=== PATIENT | female | born 1945 | race Caucasian/White ===

== ENCOUNTER 2023-10-09 11:46 | Emergency (ER) | payer MEDICARE, OTHER, SELFPAY ==
[2023-10-09 11:50] VITALS: BP 176/101
[2023-10-09 12:16] VITALS: BMI 19.8
[2023-10-09] MEDS: DUONEB 3 ML INH ×3 (12:25→15:44)
[2023-10-09] MEDS: DECADRON 10 MG PO (12:26)
[2023-10-09 13:00] VITALS: BP 167/94
[2023-10-09 14:00] VITALS: BP 149/86
--- NOTE | 2023-10-09 14:03 | ED.GENMED ---
History of Present Illness
General
Chief Complaint: Breathing Problem
Source: patient and family
Exam Limitations: none
Time Seen by Provider: 10/09/23 12:03
Nursing documentation reviewed up to this point in time: agreed with
Travel History
Have you had any contact with someone who has COVID-19?: No
Do you have any symptoms of coronavirus? Fever > 100 degrees, chills, cough, shortness of breath, sore throat, loss of taste or smell, muscle aches, or headache?: No
History of Present Illness
History of Present Illness:
77-year-old female with past medical history of deep brain stimulator, Parkinson's, hypertension and asthma presenting to the emergency department today with concerns of a cough initially a few days ago that is now worsened to wheezing and shortness
of breath over the past 2 days or so. Was using her albuterol at home without relief. Denies significant chest pain fevers or additional concerns.
Past History
Past History
ED Past Medical History: Asthma, HTN and Other (Parkinson's)
ED Past Surgical History: Orthopedic and Other (neuro stimulator May 2017)
Social History
Tobacco: Non-smoker
Alcohol: None
Drug: None
Personal:
Living: with family
Employment: Retired
Review of Systems
Review of Systems
Allergies reviewed?: Yes
All Other Systems: ROS reviewed and negative except as documented in HPI and ROS
Phy Exam
Physical Exam
Physical Exam:
GENERAL: Alert , in no apparent distress
EYE: pupils equal and reactive
NECK: Supple, no significant adenopathy.
ENT: o/p clr, mmm.
CARDIAC: Regular rate and rhythm .
LUNGS: Diffuse inspiratory and expiratory wheezing speaking full sentences in no distress
ABDOMEN: Soft, without focal tenderness, no r/g, no cvat
NEUROLOGICAL: Alert and oriented, no focal neuro deficits
SKIN: Warm and dry, skin intact.
MUSCULOSKELETAL: No edema, well perfused.
PSYCH: Normal and appropriate interaction.
Scores
Heart Failure Risk
Heart Failure Risk Score: Not Applicable
Course
Orders/Labs/Results
Orders:
Orders
10/09/23 11:53
EKG [Electrocardiogram (*1)] Urgent
Reason for Study: Shortness of Breath
10/09/23 12:18
Dexamethasone Pf [Decadron] 10 mg PO NOW STA
Ipratropium/Albuterol Sulfate [Duoneb] 3 ml INH R NOW STA
CR Chest - 2 Views Urgent
Comment:
Reason For Exam: cough sob
10/09/23 14:10
Ipratropium/Albuterol Sulfate [Duoneb] 3 ml INH R NOW ONE
Vital Signs
Initial and Last Documented VS:
Initial Vital Signs
Temp Pulse Resp BP Pulse Ox
98.9 F 94 18 176/101 97
10/09/23 11:50 10/09/23 11:50 10/09/23 11:50 10/09/23 11:50 10/09/23 11:50
Last Documented Vital Signs
Temp Pulse Resp BP Pulse Ox
98.9 F 96 29 149/86 91
10/09/23 11:50 10/09/23 14:15 10/09/23 14:15 10/09/23 14:00 10/09/23 14:15
MDM/Problems Addressed
MDM/Problems Addressed:
77-year-old female presenting to the emergency department today with concerns of initial mild upper respiratory symptoms over the past few days now worsening wheezing over the past 36 hours. Upon arrival here vital signs normal patient in no
obvious distress but does have diffuse inspiratory and expiratory wheezing. Was given steroids as well as albuterol treatment. X-ray without signs of pneumonia. Patient with improvement of symptoms after receiving nebulizer treatment as well as
steroid. Patient requesting to go home. Patient did have a third DuoNeb ordered but claims that she felt well would like to be discharged at this point. She was encouraged to return for any worsening symptoms. Pulse ox remaining in the 90s
throughout ER stay. Able to stand up and go to the bathroom without severe shortness of breath.
*Critical Care Note
Total Time (30-74mins, 75-104mins- exclusive of procedures): Not Applicable
ED Attending Note
-
Portions of this chart may have been created with voice recognition software.� Occasional wrong word or��sound alike� substitutions may have occurred due to the inherent limitations of voice recognition software.
Discharge Plan
Departure
Patient Disposition: Home (Routine Discharge)
Date of Disposition: 10/09/23
Time of Disposition: 15:34
Patient with high blood pressure during this ER visit?: No
Condition: Good
Covid-19: Not Applicable
Discharge Problem:
Asthma
Instructions: Asthma, Adult (DC)
Prescriptions:
New
prednisone 20 mg tablet
40 mg PO DAILY 4 Days Qty: 8 0RF
No Action
celecoxib 200 MG capsule
200 mg PO DAILY
melatonin 3 MG tablet
3 mg PO QPM
amantadine HCl 100 MG capsule
100 mg PO BID
calcium carbonate 600 MG tablet
1,200 mg PO DAILY
albuterol sulfate [Ventolin HFA] 90 MCG/PUFF HFA aerosol inhaler
1 puff inhalation PRN PRN (Reason: as needed)
Prolia 60 MG/ML syringe
60 mg SQ .Q TWICE A YEAR
carbidopa-levodopa 25-100 mg Tablet
1 tab PO TID
mupirocin 2 % ointment
1 applic topical BID Qty: 1 0RF
Patient Comments:
started treatment friday09/30/22 and was taking BID. last took at home 10/03/22 in am
lorazepam 1 mg Tablet
1 mg PO HS Qty: 1 0RF
sennosides [senna] 8.6 mg Tablet
17.2 mg PO BID Qty: 2 0RF
acetaminophen 325 mg Tablet
650 mg PO Q4HWA Qty: 2 0RF
aspirin 325 mg Tablet
325 mg PO DAILY Qty: 1 0RF
magnesium hydroxide 400 mg/5 mL Suspension
30 ml PO DAILYPRN PRN (Reason: constipation) Qty: 30 0RF
docusate sodium 100 mg Capsule
100 mg PO BID Qty: 1 0RF
famotidine 20 mg tablet
20 mg PO HS Qty: 30 0RF
dexamethasone 4 mg tablet
4 mg PO BID Qty: 6 0RF
Rx Instructions:
take with food
post-op use only
oxycodone 5 mg tablet
5 - 10 mg PO Q6HPRN PRN (Reason: 1 tab moderate-2 tabs severe pain) Qty: 30 0RF
Rx Instructions:
Dx TKA
ongoing therapy
lisinopril 20 MG tablet
20 mg PO DAILY Qty: 0 0RF
Rx Instructions:
hold systolic blood pressure <130 if taking Oxycodone
verapamil 180 MG tablet extended release
180 mg PO DAILY Qty: 0 0RF
acetaminophen-codeine 300-30 mg Tablet
1 tab PO Q6H PRN (Reason: mild pain) Qty: 0 0RF
Referrals:
Jose De Jesus Ruiz MD [Family Provider] -
Activity Restrictions/Additional Instructions:
You came to the emergency department today for concerns of shortness of breath and wheezing. You are found to have an asthma exacerbation. You had a normal chest x-ray. Please take the prednisone 40 mg once daily for the next 4 days and use the
nebulizer at home as needed. Return to the emergency department for any worsening, new or concerning symptoms.
Interventions
Interventions:
*Risk Screen - Suicide Last Done: 10/09/23 11:50
*General Assessment Last Done: 10/09/23 11:50
*Neglect/Abuse Screening Last Done: 10/09/23 14:20
ED- Fall Risk Assessment Last Done: 10/09/23 12:16
*ED COVID-19 Vaccine History Last Done: 10/09/23 11:50
ED- Cardiac Assessment Last Done: 10/09/23 12:16
ED- Pulmonary Assessment Last Done: 10/09/23 12:16
[2023-10-09 15:00] VITALS: BP 160/79
== END 2023-10-09 15:54 | disposition home or self-care (01) ==
LOC: EMR 11:46
PROVIDERS: EMERGENCY PHYSICIAN Emergency Medicine; FAMILY PHYSICIAN Family Medicine
DX: J45.909 Unspecified asthma, uncomplicated (principal); I10 Essential (primary) hypertension
CPT/HCPCS: 99283; 94640; 71046

== ENCOUNTER 2023-10-11 12:05 | Inpatient (IN) | payer MEDICARE, OTHER, SELFPAY ==
[2023-10-11] VITALS (7 sets, daily range): BP systolic 138–172; BP diastolic 86–107; BMI 20.3; BMI 18.8
[2023-10-11] MEDS: DUONEB 3 ML INH ×3 (09:20→19:59)
[2023-10-11 09:24] LABS: % Basophils 0.4 % (0-2); % Immature Granulocytes 0.4 % (0-0.5); % Lymphocytes 21.8 % (20.5-51.1); % Monocytes 10.4 % (1.7-9.3); Absolute Lymphocytes 1.1 10^3/uL (1.2-3.4); Absolute Monocytes 0.5 10^3/uL (0.1-0.6); Absolute Neutrophils 3.3 10^3/uL (1.4-6.5); Hematocrit 41.3 % (37.0-47.0); Hemoglobin 13.7 g/dL (12.0-16.0); Mean Corp Hgb Conc. 33.2 g/dL (33.0-37.0); Mean Corpuscular Hgb 31.3 pg (27.0-31.0); Mean Corpuscular Volume 94.3 fL (81.0-99.0); Mean Platelet Volume 8.6 fL (7.4-10.4); Nucleated Red Blood Cells % 0 %; Platelet Count 202 10^3/uL (130-400); Red Blood Cell Count 4.38 10^6/uL (4.20-5.40); Red Cell Dist. Width 13.3 % (11.5-14.5); White Blood Cell Count 4.9 10^3/uL (4.8-10.8)
[2023-10-11 09:39] LABS: ALT (SGPT) < 10 U/L (0-35); AST (SGOT) 22 U/L (14-36); Albumin 4.4 g/dl (3.5-5.0); Alkaline Phosphatase 86 U/L (38-126); Blood Urea Nitrogen 30 mg/dl (7-17); Calcium 9.8 mg/dl (8.4-10.2); Carbon Dioxide 27 mmol/L (22-30); Chloride 105 mmol/L (98-107); Estimated Creatinine Clearance 57 ml/min; Glucose 115 mg/dl (70-99); Sodium 138 mmol/L (135-145); Total Bilirubin 0.8 mg/dl (0.2-1.3); Total Protein 7.2 g/dl (6.3-8.2); eGFR > 60.00
--- NOTE | 2023-10-11 09:54 | ED.GENMED ---
History of Present Illness
General
Chief Complaint: Breathing Problem
Source: patient and family
Time Seen by Provider: 10/11/23 09:07
Travel History
Have you had any contact with someone who has COVID-19?: No
Do you have any symptoms of coronavirus? Fever > 100 degrees, chills, cough, shortness of breath, sore throat, loss of taste or smell, muscle aches, or headache?: No
History of Present Illness
History of Present Illness:
77-year-old female who presents with difficulty breathing and wheezing. Patient states she started with symptoms this past week and progressed. She was seen in the emergency department 2 days ago and given steroids and albuterol. She states
despite that, she was short of breath with chest tightness and wheezing again this morning. It somewhat has persisted. She took 2 DuoNeb's at home and was given 1 by EMS. The patient also took 40 mg of prednisone today. No fevers. No
hemoptysis. Patient admits to clear sputum. No leg swelling. No chest pain. Patient denies difficulty with food and denies coughing after eating. The patient has had 2 negative COVID tests
Past History
Past History
ED Past Medical History: Asthma, HTN and Other (Parkinson's)
ED Past Surgical History: Orthopedic and Other (neuro stimulator May 2017)
Social History
Tobacco: Non-smoker
Alcohol: None
Drug: None
Personal:
Living: with family
Employment: Retired
Phy Exam
Physical Exam
Physical Exam:
CONSTITUTIONAL Patient alert and oriented to person, place and time. Well-appearing. Vital signs reviewed.
HEAD atraumatic, normocephalic.
EYES eyelids normal to inspection, Pupils equally round and reactive to light, Extraocular muscles intact, Conjunctiva normal, Sclera normal.
NECK normal range of motion, Trachea midline, no jugular venous distention.
RESPIRATORY CHEST No respiratory distress noted, Chest expansion equal, wheezing bilaterally
CARDIOVASCULAR regular rate and rhythm, Heart sounds normal.
ABDOMEN abdomen nontender, Bowel sounds normal. No distention.
BACK normal inspection, no obvious deformities
UPPER EXTREMITY range of motion normal, Motor strength normal, no cyanosis, no edema.
LOWER EXTREMITY range of motion normal, Motor strength normal, no cyanosis, no edema.
NEURO Speech normal, No focal motor deficits, Raton coma scale 15, Memory normal, Cranial Nerves intact to screening exam.
SKIN skin warm, dry, and normal in color.
Scores
Heart Failure Risk
Heart Failure Risk Score: Not Applicable
Course
Orders/Labs/Results
Orders:
Orders
10/11/23 09:07
Cardiac Monitoring- Treatment ONCE
CR Chest - 2 Views Urgent
Comment:
Reason For Exam: respiratory distress
10/11/23 09:17
Complete Blood Count/With Diff Urgent
Comprehensive Metabolic Panel Urgent
Vitamin B12 Routine
10/11/23 09:19
Ipratropium/Albuterol Sulfate [Duoneb] 3 ml .ROUTE .STK-MED ONE
Ipratropium/Albuterol Sulfate [Duoneb] 3 ml INH R NOW STA
10/11/23 Lunch
Regular
At Your Request: Full Participation
Does patient need a safe tray?: No
10/11/23 10:22
Lorazepam [Ativan] 1 mg PO NOW STA
10/11/23 11:12
Admit/Transfer Patient As Directed
Co-Sign Provider:
Level of Care: Inpatient admission
Assign to:: Medical/Surgical
Physician / Group: hosp
Diagnosis: COPD exacerbation/bronchitis
Reason for Hospitalization: Hypoxic respiratory failure
Expected length of stay greater than two midnights?: Yes
ELOS- Estimated Length of Stay in days: 2
I certify the patient meets the requirements for IP care: Yes
10/11/23 11:14
Code Status As Directed
Resuscitation Status: Do not resuscitate
Reached after discussion with pt or family/Healthcare POA: Yes
10/11/23 11:15
DNR Bracelet Application ONCE
10/11/23 12:00
Doxycycline [Vibramycin] 100 mg PO DAILY
10/11/23 13:29
0.9% Sodium Chloride 1000 ml [Nss] 1,000 ml IV 60 mls/hr
Albuterol [ProAIR HFA INHALER] 1 puff INH R PRN PRN PRN
Ipratropium/Albuterol Sulfate [Duoneb] 3 ml INH R QID
10/11/23 13:29
Activity As Directed
Activity Level: With Assistance
Venous Foot Pumps As Directed
Location: Bilateral feet
Vital Signs As Directed
Frequency: Per unit guidelines
O2 Therapy [RESP] Routine
Nasal Cannula Liter Flow: 2 LPM
Titrate/Wean O2 to maintain O2 sat greater than (%): 93
Pulse Ox/spot Check [RESP] Routine
Quantity: 1
DX Deep Vein Thrombosis Video Routine
10/11/23 14:00
Dexamethasone Sod Phosphate [Decadron] 4 mg IV Q12
10/11/23 14:28
Influenza A+B Rapid Molecular Urgent
EVELYN Source: Nasal Swab
Specimen Description:
10/11/23 16:00
Carbidopa/Levodopa [Sinemet 25-100] 1 tablet PO TID
10/11/23 17:29
Respiratory Culture/Gram Stain Routine
EVELYN Source: Sputum
Specimen Description:
Date Specimen was Collected: 10/11/23
Time Specimen was Collected: 16:36
10/11/23 18:00
Enoxaparin Sodium [Lovenox] 40 mg SC QPM
10/11/23 20:00
Amantadine [Symmetrel] 100 mg PO BID
10/11/23 22:00
Lorazepam [Ativan] 1 mg PO HS
10/12/23 06:00
Basic Metabolic Panel IN AM
Complete Blood Count/No Diff IN AM
10/12/23 08:00
Lisinopril [Zestril] 20 mg PO DAILY
Abnormal Lab Results
10/11/23
09:17
MCH 31.3 H pg
(27.0-31.0)
Absolute Lymphs (auto) 1.1 L 10^3/uL
(1.2-3.4)
Monocytes % 10.4 H %
(1.7-9.3)
BUN 30 H mg/dl
(7-17)
Glucose 115 H mg/dl
(70-99)
10/11/23 09:17
10/11/23 09:17
Vital Signs
Initial and Last Documented VS:
Initial Vital Signs
Temp Pulse Resp BP Pulse Ox
98.5 F 93 19 167/106 93
10/11/23 09:05 10/11/23 09:05 10/11/23 09:05 10/11/23 09:05 10/11/23 09:05
Last Documented Vital Signs
Temp Pulse Resp BP Pulse Ox
97.8 F 96 18 156/86 95
10/11/23 23:49 10/11/23 23:49 10/11/23 23:49 10/11/23 23:49 10/11/23 23:49
MDM/Problems Addressed
MDM/Problems Addressed:
Reactive airway disease, hypoxia, bronchitis
*Radiology
Radiology exam reviewed: all reviewed NAD by ED Provider
*Pulse Oximetry
Patient hypoxic: yes
*Toys Inspector Interpretation
Rate: normal
Interpretation: normal
Rhythm: sinus
*Critical Care Note
Total Time (30-74mins, 75-104mins- exclusive of procedures): Not Applicable
Data Reviewed
Review of Other/Old Records Reveals: Labs (Labs reviewed from 222)
Source: patient
Prescriptions/Medications Considered But Not Given:
Consider antibiotics but white count normal, no fever, no green or yellow sputum
Patient Management
Discussion with other providers: Hospitalist
Escalation/DeEscalation of care consider admission/obs:
Revisit in a 77-year-old female with hypoxia and persistent wheezing. Despite steroids and bronchodilators, her symptoms persist. Given her findings we will plan for admission and continued management. Hold off antibiotics for now
ED Attending Note
-
Portions of this chart may have been created with voice recognition software.� Occasional wrong word or��sound alike� substitutions may have occurred due to the inherent limitations of voice recognition software.
Discharge Plan
Departure
Patient Disposition: Admit
Date of Disposition: 10/11/23
Time of Disposition: 09:59
Admit to: Med/Surg
Presentation/result/management discussed w/ accepting MD/DO: Hospitalist
Discharge Problem:
RAD (reactive airway disease), Hypoxia, Acute bronchitis
Interventions
Interventions:
*Risk Screen - Suicide Last Done: 10/11/23 08:59
*General Assessment Last Done: 10/11/23 08:59
*Neglect/Abuse Screening Last Done: 10/11/23 08:59
ED- Fall Risk Assessment Last Done: 10/11/23 08:59
*ED COVID-19 Vaccine History Last Done: 10/11/23 08:59
*Nursing Disposition Last Done: 10/11/23 13:01
ED- Cardiac Assessment Last Done: 10/11/23 08:59
ED- Pulmonary Assessment Last Done: 10/11/23 08:59
Discharge Date and Time
Discharge Date/Time: 10/11/23 13:01
[2023-10-11] MEDS: ATIVAN 1 MG PO ×2 (10:24→21:52)
--- NOTE | 2023-10-11 11:22 | HPS.HSE ---
Family Physician
-
Family Physician: Jose De Jesus Ruiz
Chief Complaint
-
Continued respiratory congestion after being seen 2 days ago and ED
History of Present Illness
77-year-old female who presents with difficulty breathing and wheezing.� Patient states she started with symptoms this past week and progressed.� She was seen in the emergency department 2 days ago and given steroids and albuterol.� She states
despite that, she was short of breath with chest tightness and wheezing again this morning.� It somewhat has persisted.� She took 2 DuoNeb's at home and was given 1 by EMS.�
The patient also took 40 mg of prednisone today.�
No fevers.� No hemoptysis.� Patient admits to clear sputum. Although in the emergency room she did cough with tenacious and thick yellowish return.� No leg swelling.� No chest pain.� Patient denies difficulty with food and denies coughing after
eating.� The patient has had 2 negative COVID tests she has received the flu vaccine but was not tested for influenza.
Medical History
Past Medical History
Past Medical History: Reports Asthma (She admitted to a history of asthma since she was a child she has albuterol nebs that she uses when she has outbreaks which are infrequent no more than 1-2 a year.) and HTN
Additional Past Medical History:
Parkinson's and follows with Dr. España at [facility]/no recent changes in her Sinemet
Past Surgical History: Reports None and Orthopedic
Additional Past Surgical History:
Brain stimulator
Social History
Tobacco: Non-smoker
Alcohol: None
Drug: None
Personal:
Living: With Family
Employment: Retired
Family History
Family History: Not pertinent
Allergies / Home Medications
Allergies reflects when Allergies were last updated in [email or web address].
Home Medications with original date entered in [email or web address]
Allergy/Medication List:
Allergies
Allergy/AdvReac Type Severity Reaction Status Date / Time
Cephalosporins Allergy Patient Verified 10/09/23 11:52
unaware of
this
allergy
hydromorphone [From Dilaudid] Allergy hallucinate Verified 10/09/23 11:52
s
penicillin G Allergy SEE BELOW Verified 10/09/23 11:52
Penicillins Allergy SEE BELOW Verified 10/09/23 11:52
Home Medications
albuterol sulfate 90 mcg/actuation aerosol inhaler (Ventolin HFA) 1 puff inhalation PRN PRN as needed 12/10/17
amantadine HCl 100 mg capsule 100 mg PO BID 12/10/17
carbidopa 25 mg-levodopa 100 mg tablet 1 tab PO TID 09/06/22
lisinopril 20 mg tablet 20 mg PO DAILY #0 tabs 10/03/22
lorazepam 1 mg tablet 1 mg PO HS #1 tab 10/03/22
prednisone 20 mg tablet 40 mg PO DAILY 4 days #8 tabs 10/09/23
Review of Systems
-
History Source: Patient and Family
Constitutional: Reports Fatigue and Sleep Disturbance; Denies Fever
EENT: Reports No Symptoms
Respiratory: Reports Cough and Other (Some production)
Cardiac: Reports No Symptoms
Abdomen/GI: Reports No Symptoms
: Reports See HPI
Musculoskeletal: Reports No Symptoms
Neurological: Reports Other (Tremor uses walker for ambulation/otherwise I am able to walk')
Physical Exam
Vital Signs
Vital Signs
Temp Pulse Resp BP Pulse Ox
98.5 F 102 16 167/92 95
10/11/23 09:05 10/11/23 10:00 10/11/23 10:00 10/11/23 10:00 10/11/23 10:00
Physical Exam
General: Appears Chronically Ill
HEENT: NormoCephalic and Oxygen (On 2 L/pulse ox 95%)
Respiratory: Wheezes and Rhonchi
Cardiac: S1/S2 and Regular Rhythm
GI: Soft
Musculoskeletal: No Clubbing
Skin: Warm
Neuro: Awake, Alert, Oriented, AO x 3 and Tremors
Psych: Calm
Laboratory Results
-
10/11/23 09:17
10/11/23 09:17
Laboratory Results
Total Bilirubin 0.8 mg/dl (0.2-1.3) 10/11/23 09:17
AST 22 U/L (14-36) 10/11/23 09:17
ALT < 10 U/L (0-35) 10/11/23 09:17
Alkaline Phosphatase 86 U/L (38-126) 10/11/23 09:17
Data Reviewed
-
Critical Care Time (in minutes): 56
Diagnostic Radiology: Report Reviewed by me (Showed no evidence of cardiopulmonary disease mild cardiomegaly, moderate to severe kyphosis appearing endplate fracture of T10 with moderate vertebral body loss) and Discussed with Physician
Lab Data: Labs Reviewed by me (No significant leukocytosis some macrocytic cytosis noted chemistries within normal limits/BUN elevated at 30)
Impression/Plan
-
IMPRESSION:
77-year-old female who presents with difficulty breathing and wheezing.� Patient states she started with symptoms this past week and progressed.� She was seen in the emergency department 2 days ago and given steroids and albuterol.� She states
despite that, she was short of breath with chest tightness and wheezing again this morning.� It somewhat has persisted.� She took 2 DuoNeb's at home and was given 1 by EMS.�
The patient also took 40 mg of prednisone today.�
No fevers.� No hemoptysis.� Patient admits to clear sputum. Although in the emergency room she did cough with tenacious and thick yellowish return.� No leg swelling.� No chest pain.� Patient denies difficulty with food and denies coughing after
eating.� The patient has had 2 negative COVID tests she has received the flu vaccine but was not tested for influenza.
COPD exacerbation//acute bronchitis/asthmatic bronchitis?
-Prior history of asthma/no eosinophilia
-Failed outpatient attempts at prednisone taper and nebs
-Chest x-ray reviewed no evidence of any inflammatory infiltrate
-Will place on IV steroids and lieu of prior oral prednisone dosing which will be held for now
-Add doxycycline daily
-Has checked COVID-19 on 2 separate occasions last week both negative
-Will check for influenza A and B
-Scheduled DuoNeb treatments/as needed albuterol
-Titrate oxygen to need may need home oxygen eval
Parkinson's disease
-Continue present dosing of Sinemet
-Amantadine
-Brain stimulator
Essential hypertension
-Continue lisinopril
Anxiety disorder
-Continue nightly lorazepam
DVT prophylaxis with Lovenox and venous pumps
DNR/DNI/substantiated by son at bedside and agreed upon by patient with prior advanced directive
[2023-10-11] MEDS: VIBRAMYCIN 100 MG PO (13:33)
[2023-10-11] MEDS: NSS 1000 IV (13:37)
[2023-10-11] MEDS: DECADRON 4 MG IV ×2 (13:51→21:52)
[2023-10-11 15:45] LABS: Vitamin B12 592 pg/ml (239-931)
[2023-10-11] MEDS: DUONEB INH (15:49)
[2023-10-11] MEDS: SINEMET 25-100 1 TABLET PO ×2 (16:24→21:52)
[2023-10-11] MEDS: CALAN EXTENDED RELEASE 180 MG PO (16:24)
[2023-10-11] MEDS: LOVENOX 40 MG SC (17:23)
[2023-10-11] MEDS: SYMMETREL 100 MG PO (19:47)
[2023-10-11] MEDS: TYLENOL #3 1 TABLET PO (21:57)
[2023-10-12] MEDS: NSS 1000 IV (05:18)
[2023-10-12] MEDS: DUONEB 3 ML INH ×4 (06:06→19:26)
[2023-10-12 07:33] VITALS: BP 151/82
[2023-10-12 07:34] LABS: Hematocrit 40.2 % (37.0-47.0); Hemoglobin 13.3 g/dL (12.0-16.0); Mean Corp Hgb Conc. 33.1 g/dL (33.0-37.0); Mean Corpuscular Hgb 31.5 pg (27.0-31.0); Mean Corpuscular Volume 95.3 fL (81.0-99.0); Mean Platelet Volume 8.7 fL (7.4-10.4); Platelet Count 184 10^3/uL (130-400); Red Blood Cell Count 4.22 10^6/uL (4.20-5.40); Red Cell Dist. Width 13.3 % (11.5-14.5); White Blood Cell Count 5.2 10^3/uL (4.8-10.8)
[2023-10-12] MEDS: CALAN EXTENDED RELEASE 180 MG PO (08:04)
[2023-10-12] MEDS: ZESTRIL 20 MG PO (08:04)
[2023-10-12] MEDS: SYMMETREL 100 MG PO ×2 (08:04→20:07)
[2023-10-12] MEDS: TYLENOL #3 1 TABLET PO ×3 (08:04→20:07)
[2023-10-12] MEDS: SINEMET 25-100 1 TABLET PO ×3 (08:04→21:12)
[2023-10-12] MEDS: VIBRAMYCIN 100 MG PO (08:04)
[2023-10-12] MEDS: DECADRON 4 MG IV (08:05)
[2023-10-12 08:06] LABS: Blood Urea Nitrogen 23 mg/dl (7-17); Carbon Dioxide 24 mmol/L (22-30); Chloride 106 mmol/L (98-107); Estimated Creatinine Clearance 53 ml/min; Glucose 124 mg/dl (70-99); Potassium 3.9 mmol/L (3.5-5.1); Sodium 138 mmol/L (135-145); eGFR > 60.00
--- NOTE | 2023-10-12 10:16 | W.PN.HOSP.TC ---
Today's Communication/Plan
-
Will start Decadron taper toward eventually placing on prednisone 40 mg tomorrow hopefully
Will probably need home O2 screen prior to discharge
Obtain PT/OT assessment
Met with family at bedside and updated
Continue doxycycline/Gram stain and culture sputum pending
Assessment / Plan
Assessment / Plan
77-year-old female who presents with difficulty breathing and wheezing.� Patient states she started with symptoms this past week and progressed.� She was seen in the emergency department 2 days ago and given steroids and albuterol.� She states
despite that, she was short of breath with chest tightness and wheezing again this morning.� It somewhat has persisted.� She took 2 DuoNeb's at home and was given 1 by EMS.�
�The patient also took 40 mg of prednisone today.�
�No fevers.� No hemoptysis.� Patient admits to clear sputum.� Although in the emergency room she did cough with tenacious and thick yellowish return.� No leg swelling.� No chest pain.� Patient denies difficulty with food and denies coughing after
eating.� The patient has had 2 negative COVID tests she has received the flu vaccine but was not tested for influenza.
COPD exacerbation//acute bronchitis/asthmatic bronchitis?
-Prior history of asthma/no eosinophilia
-Failed outpatient attempts at prednisone taper and nebs
-Chest x-ray reviewed no evidence of any inflammatory infiltrate
-Will place on IV steroids and lieu of prior oral prednisone dosing which will be held for now
-Add doxycycline daily
-Has checked COVID-19 on 2 separate occasions last week both negative
- check for influenza A and B(negative)
-Scheduled DuoNeb treatments/as needed albuterol
-Titrate oxygen to need may need home oxygen eval
Parkinson's disease
-Continue present dosing of Sinemet
-Amantadine
-Brain stimulator
Essential hypertension
-Continue lisinopril
Anxiety disorder
-Continue nightly lorazepam
DVT prophylaxis with Lovenox and venous pumps
DNR/DNI/substantiated by son at bedside and agreed upon by patient with prior advanced directive
Anticipated Discharge: 24 - 48 hours
Subjective/Interval History
-
Date of Service: October 12, 2023
Tonja is feeling significantly better than yesterday when she came in less cough less congestion presently off oxygen and due to have a walking test asking to go home but met with family and they would prefer the patient undergo PT assessment
which I agree with also need home O2 screen and a steroid taper
Objective Data
-
Labs:
Laboratory Results
10/12/23
06:46
WBC 5.2
Hgb 13.3
Hct 40.2
Plt Count 184
Sodium 138
Potassium 3.9
Chloride 106
Carbon Dioxide 24
BUN 23 H
Creatinine 0.7
Glucose 124 H
Calcium 9.0
Vital Signs:
Vital Signs
Temp Pulse Resp BP Pulse Ox
97.3 F 87 18 151/82 95
10/12/23 07:33 10/12/23 07:33 10/12/23 07:33 10/12/23 07:33 10/12/23 07:33
I&O
10/11/23 10/12/23 10/13/23
06:59 06:59 06:59
Intake Total 780 / 780
Balance 780 / 780
Review of Systems
-
History Source: Patient
Constitutional: Reports Weakness
EENT: Reports No Symptoms Reported
Respiratory: Reports Cough, Trouble Breathing and Wheezing
Cardiac: Reports No Symptoms
Abdomen/GI: Reports No Symptoms
Physical Exam
-
General: Appears Chronically Ill
HEENT: Normocephalic
Respiratory: Wheezes (Scattered on anterior exam only) and Decreased Breath Sounds
Cardiac: Regular Rhythm
GI: Soft and Nontender
Musculoskeletal: No Clubbing
Neuro: Tremors
Psych: Calm
Data Reviewed
-
Total Time Spent with Patient (in minutes): 56
Labs: Labs Reviewed by me (White count 5.2 hemoglobin 13.3/BUN down to 23 from 30/blood sugar 124)
[2023-10-12 11:31] VITALS: BP 154/90
[2023-10-12 13:01] VITALS: BMI 18.8
[2023-10-12 14:34] VITALS: BP 139/79; PULSE 99
--- NOTE | 2023-10-12 14:41 | CM ---
Alert awake oriented patient who lives with Chester who is also inpatient in . They live in home with 0 step to enter and 10 steps to bed room . She is independent in activities of daily living.She has senior helping senior 3x weekly.Offered
VN she requested [facility].
[facility] and [facility] and [facility] hx
Pharmacy [facility]
PCP Dr Ruiz
PLAN Home with VN if accepted
[2023-10-12 15:00] VITALS: BP 139/79
[2023-10-12] MEDS: LOVENOX 40 MG SC (18:23)
[2023-10-12] MEDS: ATIVAN 1 MG PO (21:12)
[2023-10-13 00:46] VITALS: BP 153/89
[2023-10-13] MEDS: MELATONIN 5 MG PO ×2 (01:14→21:01)
[2023-10-13 07:00] VITALS: BP 173/96
[2023-10-13] MEDS: DUONEB 3 ML INH ×4 (07:40→19:19)
[2023-10-13] MEDS: CALAN EXTENDED RELEASE 180 MG PO (08:06)
[2023-10-13] MEDS: SINEMET 25-100 1 TABLET PO ×3 (08:06→22:06)
[2023-10-13] MEDS: DELTASONE 40 MG PO (08:06)
[2023-10-13] MEDS: ZESTRIL 20 MG PO (08:07)
[2023-10-13] MEDS: VIBRAMYCIN 100 MG PO (08:07)
[2023-10-13] MEDS: SYMMETREL 100 MG PO ×2 (08:07→19:35)
[2023-10-13] MEDS: TYLENOL #3 1 TABLET PO ×2 (08:26→19:35)
--- NOTE | 2023-10-13 09:17 | W.PN.HOSP.TC ---
Addendum entered and electronically signed by Tulio Gutierrez MD 10/14/23 17:39:
Acute asthma exacerbation
Original Note:
Today's Communication/Plan
-
Start Lexapro 5 mg daily
Discharge tomorrow
Assessment / Plan
Assessment / Plan
77-year-old female who presents with difficulty breathing and wheezing.� Patient states she started with symptoms this past week and progressed.� She was seen in the emergency department 2 days ago and given steroids and albuterol.� She states
despite that, she was short of breath with chest tightness and wheezing again this morning.� It somewhat has persisted.� She took 2 DuoNeb's at home and was given 1 by EMS.�
�The patient also took 40 mg of prednisone today.�
�No fevers.� No hemoptysis.� Patient admits to clear sputum.� Although in the emergency room she did cough with tenacious and thick yellowish return.� No leg swelling.� No chest pain.� Patient denies difficulty with food and denies coughing after
eating.� The patient has had 2 negative COVID tests she has received the flu vaccine but was not tested for influenza.
COPD exacerbation//acute bronchitis/asthmatic bronchitis?
-Prior history of asthma/no eosinophilia
-Failed outpatient attempts at prednisone taper and nebs
-Chest x-ray reviewed no evidence of any inflammatory infiltrate, COVID-negative, influenza negative
-Status post IV steroids, currently on oral prednisone
-Continue bronchodilators
-Plan for discharge tomorrow
Anxiety
-Patient is agreeable to starting Lexapro 5 mg daily
-Continue Ativan as needed
Parkinson's disease
-Continue present dosing of Sinemet
-Amantadine
-Brain stimulator
Essential hypertension
-Blood pressure elevated at 173/96 on lisinopril 20 mg daily, verapamil 180 mg daily
-Check all blood pressures manually, start hydralazine 25 mg twice daily
DVT prophylaxis with Lovenox and venous pumps
DNR/DNI/substantiated by son at bedside and agreed upon by patient with prior advanced directive
Total time spent to see the patient on the floor, examine the patient, review data and lab results, discuss treatment plan with patient, nursing staff around 51 minutes.
Physical Exam
General: Frail, elderly, no acute distress
HEENT: Normocephalic, Atraumatic, EOMI, MMM
Respiratory: Clear to Auscultation bilaterally
Cardiac: Normal S1/S2, Regular Rate and Rhythm
GI: Soft, Nontender, Nondistended, Normal Bowel Sounds
Extremities: No Clubbing, Cyanosis, or Edema
Neuro: Resting tremor noted
Psych: Appears anxious
Anticipated Discharge: Within 24 hours
Subjective/Interval History
-
Date of Service: October 13, 2023
Patient continues to have dyspnea with activity, it does improve after ambulation. She has a cough, productive of yellow phlegm. No fever.
Objective Data
-
Vital Signs:
Vital Signs
Temp Pulse Resp BP Pulse Ox
97.8 F 89 16 173/96 96
10/13/23 07:00 10/13/23 07:43 10/13/23 07:43 10/13/23 07:00 10/13/23 07:43
I&O
10/12/23 10/13/23 10/14/23
06:59 06:59 06:59
Intake Total 780 / 780 240 / 240
Balance 780 / 780 240 / 240
[2023-10-13 13:48] VITALS: BP 138/78; PULSE 79; O2SAT 92
[2023-10-13] MEDS: LEXAPRO 5 MG PO (15:30)
[2023-10-13] MEDS: LOVENOX 40 MG SC (17:40)
[2023-10-13 22:00] VITALS: BP 122/74
[2023-10-13] MEDS: ATIVAN 1 MG PO (22:06)
[2023-10-14] MEDS: DUONEB 3 ML INH ×2 (07:27→11:31)
[2023-10-14 07:35] VITALS: BP 150/90
[2023-10-14] MEDS: DELTASONE 40 MG PO (07:38)
[2023-10-14] MEDS: SINEMET 25-100 1 TABLET PO (07:38)
[2023-10-14] MEDS: LEXAPRO 5 MG PO (07:38)
[2023-10-14] MEDS: ZESTRIL 20 MG PO (07:38)
[2023-10-14] MEDS: CALAN EXTENDED RELEASE 180 MG PO (07:38)
[2023-10-14] MEDS: SYMMETREL 100 MG PO (07:38)
[2023-10-14] MEDS: VIBRAMYCIN 100 MG PO (07:39)
[2023-10-14 07:41] VITALS: BP 158/80
--- NOTE | 2023-10-14 08:15 | W.PN.HOSP.TC ---
Addendum entered and electronically signed by Tulio Gutierrez MD 10/14/23 17:41:
Patient also has severe protein calorie malnutrition.
Addendum entered and electronically signed by Tulio Gutierrez MD 10/14/23 17:39:
Correction, patient has acute asthma exacerbation.
Original Note:
Today's Communication/Plan
-
Discharge today
Assessment / Plan
Assessment / Plan
77-year-old female who presents with difficulty breathing and wheezing.� Patient states she started with symptoms this past week and progressed.� She was seen in the emergency department 2 days ago and given steroids and albuterol.� She states
despite that, she was short of breath with chest tightness and wheezing again this morning.� It somewhat has persisted.� She took 2 DuoNeb's at home and was given 1 by EMS.�
�The patient also took 40 mg of prednisone today.�
�No fevers.� No hemoptysis.� Patient admits to clear sputum.� Although in the emergency room she did cough with tenacious and thick yellowish return.� No leg swelling.� No chest pain.� Patient denies difficulty with food and denies coughing after
eating.� The patient has had 2 negative COVID tests she has received the flu vaccine but was not tested for influenza.
COPD exacerbation//acute bronchitis/asthmatic bronchitis?
-Prior history of asthma/no eosinophilia
-Failed outpatient attempts at prednisone taper and nebs
-Chest x-ray reviewed no evidence of any inflammatory infiltrate, COVID-negative, influenza negative
-Status post IV steroids, currently on oral prednisone
-Continue bronchodilators
-Medically stable for discharge today
Anxiety
-Patient is agreeable to starting Lexapro 5 mg daily -will provide prescription upon discharge
-Continue Ativan as needed
Parkinson's disease
-Continue present dosing of Sinemet
-Amantadine
-Brain stimulator
Essential hypertension
-Blood pressure elevated at 173/96 on lisinopril 20 mg daily, verapamil 180 mg daily
DVT prophylaxis with Lovenox and venous pumps
DNR/DNI/substantiated by son at bedside and agreed upon by patient with prior advanced directive
Physical Exam
General: Frail, elderly, no acute distress
HEENT: Normocephalic, Atraumatic, EOMI, MMM
Respiratory: Mild scattered expiratory wheezing
Cardiac: Normal S1/S2, Regular Rate and Rhythm
GI: Soft, Nontender, Nondistended, Normal Bowel Sounds
Extremities: No Clubbing, Cyanosis, or Edema
Neuro: Resting tremor noted
Psych: Appears anxious
Anticipated Discharge: Today
Subjective/Interval History
-
Date of Service: October 14, 2023
Breathing continues to improve.
Objective Data
-
Vital Signs:
Vital Signs
Temp Pulse Resp BP Pulse Ox
97.7 F 87 18 158/80 93
10/14/23 07:41 10/14/23 07:41 10/14/23 07:41 10/14/23 07:41 10/14/23 07:41
I&O
10/13/23 10/14/23 10/15/23
06:59 06:59 06:59
Intake Total 240 / 240 720 / 720
Balance 240 / 240 720 / 720
--- NOTE | 2023-10-14 09:07 | PN.CDI ---
CDI
- -
CDI:
Physician Documentation Request
Admit Date: 10/11/23 12:05
Dear Doctor Do,
Please review the following and provide your response in the progress notes.
Clinical Indicators:
- 10/12 Mother Tester note indicates severe protein calorie malnutrition
- Unintentional weight loss >5% in 1 month
- Nutrient intake </= 75% estimated energy needs, >/= 1 month
- 'Pt reports po intake has been poor and decreased over the past 1year'
- 10/11 BMI 18.8
Based on the information, which of the following most accurately represents the patient's nutritional status?
Severe protein calorie malnutrition
Other
[place] Criteria ([facility] Hospitalist 2017)
2 or more criteria must be present for either
non severe or severe malnutrition
Note that the criteria differs related to the
presence of an acute or chronic illness
Acute Illness Chronic Illness
Energy Intake Non Severe: <75% for >7 days Non Severe: <75% for >1 month
Severe: <50% for >5 days Severe: <75% for >1 month
Weight Loss Non Severe: 1-2% over 1 week Non Severe: 5% over 1 month
5% over 1 month 7.5% over 3 months
7.5% over 3 months 10% over 6 months
1 year N/A 20% over 1 year
Severe: >2% over 1 week Severe: >5% over 1 month
>5% over 1 month >7.5% over 3 months
>7.5% over 3 months >10% over 6 months
1 year N/A >20% over 1 year
Body Fat Non Severe: Mild Decrease Non Severe: Mild Loss
Severe: Moderate Decrease Severe: Severe Loss
Muscle Mass Non Severe: Mild Decrease Non Severe: Mild Loss
Severe: Moderate Decrease Severe: Severe Loss
Fluid Accumulation Non Severe: Mild Accumulation Non Severe: Mild Accumulation
Severe: Moderate to severe Severe: Moderate to severe
accumulation accumulation
Reduced Grommet Man Strength Non Severe: N/A Non Severe: N/A
Severe: Measurably reduced Severe: Measurably reduced
Additional criteria that can be used to Determine if Mild or Moderate Malnutrition ([employer] Manual 2018)
Mild Moderate Severe
Albumin gm/dl <3.0 gm/dl <2.5 gm/dl <2.0 gm/dl
Pre Albumin mg/dl <15 gm/dl <10 mg/dl <5.0 mg/dl
BMI <18.5 <17 <16
Use of terms such as suspected, likely, concern for, or probable (associated with a specific diagnosis that is being evaluated, monitored, or treated as if it exists) are acceptable and can be coded in the inpatient setting, when documented at the
time of discharge.
Thank you,
Petrona Paz RN
CDI Specialist
Please use your independent medical judgment in providing your response.
[2023-10-14] MEDS: TYLENOL #3 1 TABLET PO (09:33)
--- NOTE | 2023-10-14 12:36 | W.DCSUMMARY ---
Addendum entered and electronically signed by Tulio Gutierrez MD 10/14/23 17:41:
Patient also has severe protein calorie malnutrition.
Original Note:
Discharge Summary
Discharge Data
Date of Admission: 10/11/23
Date of Discharge: 10/14/23
-
Pending Results: No
Hospital Course
Discharge diagnosis:
Acute asthma exacerbation
Anxiety
Parkinson's disease
Benign essential hypertension
Hospital course:
77-year-old female with a past medical history of Parkinson's disease, asthma, anxiety, and hypertension was admitted for acute asthma exacerbation. Patient was seen in the ER 2 days prior to admission, and prescribed prednisone. Despite this, her
breathing got worse, and she was admitted for IV steroids. Chest x-ray was negative for acute cardiopulmonary disease, she was COVID-negative, influenza negative.
After several days, her breathing improved, and she was transitioned to oral steroids.
Patient does have anxiety, she is on Ativan 1 mg at bedtime. She was started on Lexapro 5 mg daily, a new prescription has been provided. She has been instructed to follow-up with her primary care doctor for titration.
Patient is medically stable for discharge on prednisone and breathing treatments as directed. She has been instructed to follow-up with primary doctor in 1 week.
Disposition: Home with home care
Discharge planning: Required 37 minutes
Discharge Plan
-
Patient Disposition: Home with Home Care
Discharge Diagnosis/Procedures: COPD exacerbation bronchitis
Parkinson's disease with stimulator
Diet: Regular
Activity: With assistance and With Walker
Driving Restrictions: No driving
Referrals:
Jose De Jesus Ruiz MD [Family Provider] - in one week
Prescriptions:
New
doxycycline hyclate 100 mg Capsule
100 mg PO DAILY Qty: 7 0RF
prednisone 20 mg Tablet
40 mg PO DAILY Qty: 4 0RF
Rx Instructions:
Take for 4 days after discharge
escitalopram oxalate 5 mg Tablet
5 mg PO DAILY 30 Days Qty: 30 0RF
ipratropium-albuterol 0.5 mg-3 mg(2.5 mg base)/3 mL solution for nebulization
3 ml inhalation QID PRN (Reason: shortness of breath or wheezing) Qty: 180 0RF
Continued
amantadine HCl 100 MG capsule
100 mg PO BID
albuterol sulfate [Ventolin HFA] 90 MCG/PUFF HFA aerosol inhaler
1 puff inhalation R Q6HPRN PRN (Reason: sob)
carbidopa-levodopa 25-100 mg Tablet
1 tab PO TID
lorazepam 1 mg Tablet
1 mg PO HS Qty: 1 0RF
lisinopril 20 MG tablet
20 mg PO DAILY Qty: 0 0RF
verapamil 180 mg Tablet Extended Release
180 mg PO DAILY
celecoxib 200 mg Capsule
200 mg PO DAILY
acetaminophen-codeine 300-30 mg Tablet
1 tab PO QIDPRN PRN (Reason: severe pain)
calcium carbonate 500 mg calcium (1,250 mg) Tablet
500 mg PO DAILY
vitamin E 268 mg (400 unit) Capsule
268 mg PO DAILY
cholecalciferol (vitamin D3) [Vitamin D3] 25 mcg (1,000 unit) Tablet
25 mcg PO DAILY
Visbiome 112.5 billion cell Capsule
1 cap PO DAILY
Discontinued
prednisone 20 mg tablet
40 mg PO DAILY 4 Days Qty: 8 0RF
Patient Comments:
for 4 days starting 10/09/23
Discharge Orders:
Discharge Patient (As Directed); Ordered 10/14/23
Ordered By: Tulio Gutierrez
Discharge Date and Time
Discharge Date/Time: 10/14/23 15:36
== END 2023-10-14 15:36 | disposition home health service (06) | DRG 190 ==
LOC: 3 WEST ACU 12:05
PROVIDERS: ADMITTING PHYSICIAN Internal Medicine; ATTENDING PHYSICIAN Family Medicine; EMERGENCY PHYSICIAN Emergency Medicine; FAMILY PHYSICIAN Family Medicine
DX: J44.1 Chronic obstructive pulmonary disease with (acute) exacerbation (principal); E43 Unspecified severe protein-calorie malnutrition; J45.901 Unspecified asthma with (acute) exacerbation; Z68.1 Body mass index [BMI] 19.9 or less, adult; F41.9 Anxiety disorder, unspecified; G20.A1 Parkinson's disease without dyskinesia, without mention of fluctuations; I10 Essential (primary) hypertension; J44.0 Chronic obstructive pulmonary disease with (acute) lower respiratory infection; J20.9 Acute bronchitis, unspecified; Z66 Do not resuscitate
CPT/HCPCS: 71046; 80048; 80053; 82607; 85025; 85027; 87070; 87205; 87502; 94640; 97163; 97167; 97530; 99285

== ENCOUNTER → 2024-03-08 08:18 | Outpatient (REF) | payer MEDICARE, OTHER, SELFPAY ==
[2024-03-08 09:23] LABS: ALT (SGPT) < 10 U/L (0-35); AST (SGOT) 20 U/L (14-36); Albumin 4.7 g/dl (3.5-5.0); Alkaline Phosphatase 92 U/L (38-126); Blood Urea Nitrogen 25 mg/dl (7-17); Calcium 10.1 mg/dl (8.4-10.2); Carbon Dioxide 26 mmol/L (22-30); Chloride 104 mmol/L (98-107); Glucose 97 mg/dl (70-99); Sodium 141 mmol/L (135-145); Total Bilirubin 0.7 mg/dl (0.2-1.3); Total Protein 7.1 g/dl (6.3-8.2); eGFR 56.95
[2024-03-08 10:38] LABS: Vitamin D, 25-OH*** 44.5 ng/mL (30-80)
[2024-03-11 00:21] LABS: Albumin 4.35 g/dL (3.75-5.01); Alpha 1 Globulin 0.31 g/dL (0.19-0.46); Alpha 2 Globulin 0.75 g/dL (0.48-1.05); Free Kappa Light Chains,Quant 26.28 mg/L (3.30-19.40); Free Lambda Light Chains,Quant 15.45 mg/L (5.71-26.30); IgA 219 mg/dL (68-408); IgG 661 mg/dL (768-1632); IgM 81 mg/dL (35-263); Immunofixation Electrophoresis IFE Done; Total Protein-Electrophoresis 6.9 g/dL (6.3-8.2)
== END ==
LOC: RAD 08:18
PROVIDERS: ATTENDING PHYSICIAN Internal Medicine; FAMILY PHYSICIAN Family Medicine
DX: M81.0 Age-related osteoporosis without current pathological fracture (principal); Z51.81 Encounter for therapeutic drug level monitoring; D47.2 Monoclonal gammopathy
CPT/HCPCS: 36415; 77080; 80053; 82306; 82784; 83521; 84155; 84165; 86334

== ENCOUNTER → 2024-04-30 14:23 | Outpatient (REF) | payer MEDICARE, OTHER, SELFPAY | LOC: HWRCS 14:23 | PROVIDERS: ATTENDING PHYSICIAN Family Medicine | DX: G20.B2 Parkinson's disease with dyskinesia, with fluctuations (principal); I10 Essential (primary) hypertension; I34.0 Nonrheumatic mitral (valve) insufficiency; J45.20 Mild intermittent asthma, uncomplicated | CPT/HCPCS: 71046; 93306 ==

== ENCOUNTER 2024-05-26 08:44 | Day surgery (SDC) | payer MEDICARE, OTHER, SELFPAY ==
[2024-05-26] MEDS: ORETIC 12.5 MG PO (14:06)
[2024-05-26] MEDS: ZESTRIL 20 MG PO (14:08)
== END 2024-05-26 14:30 | disposition home or self-care (01) ==
LOC: CATH 08:44
PROVIDERS: ATTENDING PHYSICIAN Internal Medicine; FAMILY PHYSICIAN Family Medicine; OTHER PHYSICIAN Student in an Organized Health Care Education/Training Program
DX: I08.3 Combined rheumatic disorders of mitral, aortic and tricuspid valves (principal); I45.10 Unspecified right bundle-branch block; I10 Essential (primary) hypertension; K21.9 Gastro-esophageal reflux disease without esophagitis; G20.A1 Parkinson's disease without dyskinesia, without mention of fluctuations; Z96.82 Presence of neurostimulator
CPT/HCPCS: 93312; 93320; 93325; 93005

== ENCOUNTER 2024-06-07 18:41 | Emergency (ER) | payer MEDICARE, OTHER, SELFPAY ==
[2024-06-07 18:44] VITALS: BP 154/67
[2024-06-07 21:43] VITALS: BP 171/97
[2024-06-07 22:00] VITALS: BP 120/86
[2024-06-07 22:24] VITALS: BMI 18.4
--- NOTE | 2024-06-07 22:55 | ED.GENMED ---
History of Present Illness
General
Chief Complaint: Fall
Source: patient
Exam Limitations: none
Time Seen by Provider: 06/07/24 22:16
Nursing documentation reviewed up to this point in time: agreed with
History of Present Illness
History of Present Illness:
PT IS A 78 Y/O F with h/o parkinsons
says her rolling walker got caught on the piece of trim around the wall when she was walking back from dinner at [facility] where she lives and caused her to fall backwards onto her back and hit her head
she was placed in c collar but pt removed the collar
she had a headache initially but none now
she had mild neck pain then but none now
she has no back pain but is asking for back xrays because she has bene falling onto her back a lot lately because of the parkinsons
she has some choppiness to her voice and slurring which is typical of her in the evening hours
she denies confusion, weakness, fever, chills, cp, sob, syncope, vomiting,
Past History
Past History
ED Past Medical History: Asthma, HTN and Other (Parkinson's)
ED Past Surgical History: Orthopedic and Other (neuro stimulator May 2017)
Social History
Tobacco: Non-smoker
Alcohol: None
Drug: None
Personal:
Living: with family
Employment: Retired
Review of Systems
Review of Systems
Allergies reviewed?: Yes
All Other Systems: Not applicable
Phy Exam
Physical Exam
Physical Exam:
GENERAL: Alert , in no apparent distress
HEAD: NCAT
NECK: no midline tenderness, active ROM intact, no paraspinal muscle tenderness; full rom
EYE: pupils equal and reactive, EOMs intact.
ENT: o/p clr, mmm. no hemotympanum
CARDIAC: Regular rate and rhythm, no edema
LUNGS: Clear breath sounds bilaterally, no acute respiratory distress, no wheezes/rales/rhonchi
ABDOMEN: Soft, without focal tenderness, no r/g, no cvat
NEUROLOGICAL: Alert and oriented, some mild dysarthria at times; otherwise CN intact, 5/5 strength, sensation intact
SKIN: Warm and dry,
MUSCULOSKELETAL: cogwheel movements of arms
some hand/finger deformityies/stiff ness;
back: nontender no bruising
no pelvis tendneress
full hip ROM
PSYCH: Normal and appropriate interaction.
Course
Orders/Labs/Results
Orders:
Orders
06/07/24
CR Thoracic Spine 2 Views Urgent
Reason For Exam: fall on back
Lumbar Spine Complete, 4 View [CR Lumbar Spine Comp Min 4 Vw*] Urgent
Comment:
Reason For Exam: fall on back
06/07/24 22:55
CT Cervical Spine W/o Iv Contr Urgent
Comment:
Reason For Exam: fall backwards, neck pain
CT Head W/o Iv Contrast Urgent
Comment:
Reason For Exam: fall backwards, head strike
Cardiac Monitoring- Treatment ONCE
06/08/24 01:48
Lorazepam [Ativan] 1 mg PO NOW STA
Vital Signs
Initial and Last Documented VS:
Initial Vital Signs
Temp Pulse Resp BP Pulse Ox
98.2 F 50 18 154/67 98
06/07/24 18:44 06/07/24 18:44 06/07/24 18:44 06/07/24 18:44 06/07/24 18:44
Last Documented Vital Signs
Temp Pulse Resp BP Pulse Ox
98.2 F 66 16 155/74 92
06/07/24 18:44 06/08/24 03:00 06/08/24 03:00 06/08/24 03:00 06/08/24 03:00
MDM/Problems Addressed
Differential Diagnosis Includes:
head injury, cervical strain, comrpession fx
MDM/Problems Addressed:
78 y/o F
severe parkinsons
amb dysfunction
tremor
mechanical fall backwards, head strike, no thinners
initially per ems had dizziness/neck marcelo which she denies
she is asking for back xrays becusae of multiple falls and chroni pain but no new pain from today's fall
she oes have previuos hardware from fusions/scoisosi
she is very comfortable papeparing
neuro with tremor but no deficits
ct head neg
ct c spine hardware ,no fx
xrays indep reviewed
hardware in place
surgical clips visible
compression defomrity thoracic spine appears cronic
djd
did not feel that blood wrk was necessary, this fall was mechanical
pt will be ransported back to [place]
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
*Critical Care Note
Total Time (30-74mins, 75-104mins- exclusive of procedures): Not Applicable
ED Attending Note
-
Portions of this chart may have been created with voice recognition software.� Occasional wrong word or��sound alike� substitutions may have occurred due to the inherent limitations of voice recognition software.
Discharge Plan
Departure
Patient Disposition: Home (Routine Discharge)
Date of Disposition: 06/08/24
Time of Disposition: 02:03
Patient with high blood pressure during this ER visit?: Yes
Condition: Fair
Covid-19: Not Applicable
Discharge Problem:
Fall
Instructions: Head Injury in Adults (DC), Minor Head Injury, Adult ED, Preventing Falls ED
Prescriptions:
No Action
amantadine HCl 100 MG capsule
100 mg PO BID
albuterol sulfate [Ventolin HFA] 90 MCG/PUFF HFA aerosol inhaler
1 puff inhalation R Q6HPRN PRN (Reason: sob)
carbidopa-levodopa 25-100 mg Tablet
1 tab PO TID
lorazepam 1 mg Tablet
1 mg PO HS Qty: 1 0RF
lisinopril 20 MG tablet
20 mg PO DAILY Qty: 0 0RF
verapamil 180 mg Tablet Extended Release
180 mg PO DAILY
celecoxib 200 mg Capsule
200 mg PO DAILY
acetaminophen-codeine 300-30 mg Tablet
1 tab PO QIDPRN PRN (Reason: severe pain)
calcium carbonate 500 mg calcium (1,250 mg) Tablet
500 mg PO DAILY
vitamin E 268 mg (400 unit) Capsule
268 mg PO DAILY
cholecalciferol (vitamin D3) [Vitamin D3] 25 mcg (1,000 unit) Tablet
25 mcg PO DAILY
Visbiome 112.5 billion cell Capsule
1 cap PO DAILY
ipratropium-albuterol 0.5 mg-3 mg(2.5 mg base)/3 mL solution for nebulization
3 ml inhalation QID PRN (Reason: shortness of breath or wheezing) Qty: 180 0RF
ondansetron HCl 4 mg Tablet
DAILY PRN (Reason: nausea)
sertraline [Zoloft] 100 mg Tablet
100 mg PO DAILY
melatonin 3 mg Tablet
3 mg PO HS PRN (Reason: Nausea)
hydrochlorothiazide 12.5 mg Capsule
12.5 mg PO DAILY
Referrals:
Jose De Jesus Ruiz MD [Family Provider] - Follow up in 2-3 days
Activity Restrictions/Additional Instructions:
YOU HAVE ARTHRITIS IN YOUR SPINE BUT NO FRACTURES IDENTIFIED; YOUR XRAYS WILL BE REVIEWED BY A RADIOLOGIST TOMORROW
YOUR CAT SCNA OF YOUR HEAD SHOWED NO HEAD TRAUMA
FOLLOW UP WITH YOUR DOCTOR
RETURN FO RANY CONCERNS: CHANGE IN MENTAL STATUS, VOMITING, WEAKNESS, NUMBNESS ETC
Interventions
Interventions:
*Risk Screen - Suicide Last Done: 06/07/24 18:44
*General Assessment Last Done: 06/08/24 00:15
*Neglect/Abuse Screening Last Done: 06/07/24 18:44
ED- Fall Risk Assessment Last Done: 06/08/24 00:15
*ED COVID-19 Vaccine History Last Done: 06/08/24 00:15
ED-Musculoskeletal Assessment Last Done: 06/08/24 00:15
ED- Neurological Assessment Last Done: 06/08/24 00:15
ED-Skin Assessment Last Done: 06/07/24 22:24
Discharge Date and Time
Print Language: [place]
[2024-06-07 23:00] VITALS: BP 137/82
[2024-06-08 00:25] VITALS: BP 184/79
[2024-06-08 00:26] VITALS: BP 184/79
[2024-06-08 01:00] VITALS: BP 165/81
[2024-06-08] MEDS: ATIVAN 1 MG PO (01:53)
[2024-06-08 02:15] VITALS: BP 155/74
[2024-06-08 03:00] VITALS: BP 155/74
== END 2024-06-08 03:35 | disposition home or self-care (01) ==
LOC: EMR 18:41
PROVIDERS: EMERGENCY PHYSICIAN Emergency Medicine; FAMILY PHYSICIAN Family Medicine
DX: S09.90XA Unspecified injury of head, initial encounter (principal); W19.XXXA Unspecified fall, initial encounter; I10 Essential (primary) hypertension
CPT/HCPCS: 99284; 70450; 72070; 72110; 72125

== ENCOUNTER 2024-06-14 09:51 | Emergency (ER) | payer MEDICARE, OTHER, SELFPAY ==
[2024-06-14 10:10] VITALS: BP 127/79
[2024-06-14 11:02] VITALS: BP 155/82
[2024-06-14 12:00] VITALS: BP 183/94
--- NOTE | 2024-06-14 12:38 | ED.GENMED ---
History of Present Illness
General
Chief Complaint: Fall
Source: patient
Exam Limitations: none
Time Seen by Provider: 06/14/24 10:31
Nursing documentation reviewed up to this point in time: agreed with
History of Present Illness
History of Present Illness:
78-year-old female with past medical history of Parkinson's presenting to the emergency department after she lost her balance earlier today falling hitting the back of her head did not lose consciousness otherwise feels well but did have some
bleeding to the back of her head. She hit her head on a dresser.
Past History
Past History
ED Past Medical History: Asthma, HTN and Other (Parkinson's)
ED Past Surgical History: Orthopedic and Other (neuro stimulator May 2017)
Social History
Tobacco: Non-smoker
Alcohol: None
Drug: None
Personal:
Living: with family
Employment: Retired
Review of Systems
Review of Systems
Allergies reviewed?: Yes
All Other Systems: ROS reviewed and negative except as documented in HPI and ROS
Phy Exam
Physical Exam
Physical Exam:
GENERAL: Alert , in no apparent distress
EYE: pupils equal and reactive
NECK: Supple, no significant adenopathy.
ENT: Laceration to the occipital scalp 2.5 cm in length. o/p clr, mmm.
CARDIAC: Regular rate and rhythm .
LUNGS: Clear breath sounds bilaterally, no acute respiratory distress, no wheezes/rales/rhonchi
ABDOMEN: Soft, without focal tenderness, no r/g, no cvat
NEUROLOGICAL: Alert and oriented, no focal neuro deficits
SKIN: Warm and dry, skin intact.
MUSCULOSKELETAL: No edema, well perfused.
PSYCH: Normal and appropriate interaction.
Course
Orders/Labs/Results
Orders:
Orders
06/14/24 11:17
CT Cervical Spine W/o Iv Contr Urgent
Comment:
Reason For Exam: fall
CT Head W/o Iv Contrast Urgent
Comment:
Reason For Exam: fall
Vital Signs
Initial and Last Documented VS:
Initial Vital Signs
Temp Pulse Resp BP Pulse Ox
98.0 F 78 16 127/79 98
06/14/24 10:10 06/14/24 10:10 06/14/24 10:10 06/14/24 10:10 06/14/24 10:10
Last Documented Vital Signs
Temp Pulse Resp BP Pulse Ox
98.0 F 78 16 183/94 94
06/14/24 10:10 06/14/24 10:10 06/14/24 10:10 06/14/24 12:00 06/14/24 11:05
Procedures
Laceration Closure
Left Posterior Occipital:
Status of Wound: clean
Size of Wound in cm: 2.5
Description of Wound Edges: sharp
Preparation: cleaned with saline
Anesthesia: 1% Lidocaine with epi
Revision/Debridement: routine- no revision and irrigate-direct pressure
Wound exploration: explored to base- no FB and no tendon involvement
Type of Closure: single layer closure
Skin Closure Material: skin ruben
Number of sutures: 3
MDM/Problems Addressed
MDM/Problems Addressed:
78-year-old female presenting to the emergency department today with concerns of laceration to the occipital scalp that occurred when losing her footing earlier today hitting a dresser in her room. Bleeding controlled with pressure not on blood
thinners. Patient denies loss of consciousness numbness weakness or additional concerns. CT without emergent findings stable for discharge return precautions given.
*Critical Care Note
Total Time (30-74mins, 75-104mins- exclusive of procedures): Not Applicable
ED Attending Note
-
Portions of this chart may have been created with voice recognition software.� Occasional wrong word or��sound alike� substitutions may have occurred due to the inherent limitations of voice recognition software.
Discharge Plan
Departure
Patient Disposition: Home (Routine Discharge)
Date of Disposition: 06/14/24
Time of Disposition: 13:43
Patient with high blood pressure during this ER visit?: No
Condition: Good
Covid-19: Not Applicable
Discharge Problem:
Laceration of scalp, Head injury
Instructions: Laceration Repair With Ruben (DC), Preventing falls in adults
Prescriptions:
No Action
amantadine HCl 100 MG capsule
100 mg PO BID
albuterol sulfate [Ventolin HFA] 90 MCG/PUFF HFA aerosol inhaler
1 puff inhalation R Q6HPRN PRN (Reason: sob)
carbidopa-levodopa 25-100 mg Tablet
1 tab PO TID
lorazepam 1 mg Tablet
1 mg PO HS Qty: 1 0RF
lisinopril 20 MG tablet
20 mg PO DAILY Qty: 0 0RF
verapamil 180 mg Tablet Extended Release
180 mg PO DAILY
celecoxib 200 mg Capsule
200 mg PO DAILY
acetaminophen-codeine 300-30 mg Tablet
1 tab PO QIDPRN PRN (Reason: severe pain)
calcium carbonate 500 mg calcium (1,250 mg) Tablet
500 mg PO DAILY
vitamin E 268 mg (400 unit) Capsule
268 mg PO DAILY
cholecalciferol (vitamin D3) [Vitamin D3] 25 mcg (1,000 unit) Tablet
25 mcg PO DAILY
Visbiome 112.5 billion cell Capsule
1 cap PO DAILY
ipratropium-albuterol 0.5 mg-3 mg(2.5 mg base)/3 mL solution for nebulization
3 ml inhalation QID PRN (Reason: shortness of breath or wheezing) Qty: 180 0RF
ondansetron HCl 4 mg Tablet
DAILY PRN (Reason: nausea)
sertraline [Zoloft] 100 mg Tablet
100 mg PO DAILY
melatonin 3 mg Tablet
3 mg PO HS PRN (Reason: Nausea)
hydrochlorothiazide 12.5 mg Capsule
12.5 mg PO DAILY
Referrals:
Sherice Weaver MD [Family Provider] -
Activity Restrictions/Additional Instructions:
You came to the emergency department today after a fall. You are found have a laceration to the back of her head which was closed with [address] ruben[address] He had a CT scan of your head and neck without emergent findings. Please feel closely with the
primary care doctor. Return to the emergency department any worsening, new or concerning symptoms. Please have the ruben removed in 1 week.
Interventions
Interventions:
*Risk Screen - Suicide Last Done: 06/14/24 10:10
*General Assessment Last Done: 06/14/24 10:56
*Neglect/Abuse Screening Last Done: 06/14/24 10:10
*ED COVID-19 Vaccine History Last Done: 06/14/24 10:56
ED-Musculoskeletal Assessment Last Done: 06/14/24 10:56
ED- Neurological Assessment Last Done: 06/14/24 10:56
ED-Skin Assessment Last Done: 06/14/24 10:56
Discharge Date and Time
Print Language: BELARUSIAN
== END 2024-06-14 15:36 | disposition home or self-care (01) ==
LOC: EMR 09:51
PROVIDERS: EMERGENCY PHYSICIAN Emergency Medicine; FAMILY PHYSICIAN Family Medicine
DX: S01.01XA Laceration without foreign body of scalp, initial encounter (principal); S09.90XA Unspecified injury of head, initial encounter; W18.39XA Other fall on same level, initial encounter; G20.A1 Parkinson's disease without dyskinesia, without mention of fluctuations; I10 Essential (primary) hypertension; J45.909 Unspecified asthma, uncomplicated; M19.90 Unspecified osteoarthritis, unspecified site; M48.00 Spinal stenosis, site unspecified; Z96.651 Presence of right artificial knee joint; Z98.1 Arthrodesis status; Z91.81 History of falling
CPT/HCPCS: 99284; 12001; 70450; 72125

== ENCOUNTER 2024-06-15 13:15 | Inpatient (IN) | payer MEDICARE, OTHER, SELFPAY ==
[2024-06-15] VITALS (11 sets, daily range): BP systolic 136–187; BP diastolic 65–130; BMI 19.1
--- NOTE | 2024-06-15 07:25 | ED.GENMED ---
History of Present Illness
General
Chief Complaint: Fall
Time Seen by Provider: 06/15/24 07:15
History of Present Illness
History of Present Illness:
78-year-old female with history of Parkinson's presents to the emergency department for evaluation of a fall this morning. She resides in independent/personal care at [facility], states that she is advised by staff to call for assistance
anytime she needs to ambulate. She states she woke up this morning and called for assistance but no staff members arrived, attempted to get herself up and moving independently and lost her balance. States that she fell on the right hip, did not
strike the head or lose consciousness. She denies any injuries or pain at the current time. States she is only here because her daughter requested medical evaluation. This is her third such fall in the past week. Denies any associated dizziness
or lightheadedness. She is not on any anticoagulants.
Past History
Past History
ED Past Medical History: Asthma, HTN and Other (Parkinson's)
ED Past Surgical History: Orthopedic and Other (neuro stimulator May 2017)
Social History
Tobacco: Non-smoker
Alcohol: None
Drug: None
Personal:
Living: with family
Employment: Retired
Review of Systems
Review of Systems
Allergies reviewed?: Yes
All Other Systems: ROS reviewed and negative except as documented in HPI and ROS
Phy Exam
Physical Exam
Physical Exam:
GEN: Well appearing, NAD, WDWN
Eyes: PERRLA, EOMs intact, no scleral icterus
HENT: NCAT, oral mucosa moist, no midline cervical spine tenderness
Lungs: CTAB, no wheezes, rales, rhonchi, normal chest wall excursion
Cardiac: RRR, no M/R/G, no peripheral edema. Radial pulses 2+ bilat
Abdomen: S, NT, ND, NABS, no masses or hepatosplenomegaly
Neuro: AO x 3, no focal deficits to BUE/BLE, normal sensation throughout
MSK: No gross deformity or ecchymosis. Pelvis stable with no crepitus or tenderness
Skin: No rashes, petechiae. Normal color, no pallor or jaundice.
Psych: Calm, cooperative, proper hygiene
Course
Orders/Labs/Results
Orders:
Orders
06/15/24 07:29
Electrocardiogram (*1) Urgent
Reason for Study: QTc Monitoring
EKG- Treatment ONCE
06/15/24 07:32
Complete Blood Count/With Diff Urgent
Comprehensive Metabolic Panel Urgent
06/15/24 08:21
0.9% Sodium Chloride 1000 ml [Nss] 1,000 ml IV BOLUS
06/15/24 08:22
Potassium Chloride 10% Elixir [KCl Elixir] 40 meq PO NOW STA
06/15/24 08:45
Potassium Chloride [KCl] 20 meq 0.9% Sodium Chloride 150 ml [Nss] 150 ml IV NOW
06/15/24 08:59
Carbidopa/Levodopa [Sinemet 25-100] 1 tablet PO NOW STA
Lisinopril [Zestril] 40 mg PO NOW STA
06/15/24 09:39
Amantadine [Symmetrel] 100 mg PO NOW STA
Abnormal Lab Results
06/15/24
07:32
MCH 31.2 H pg
(27.0-31.0)
Absolute Lymphs (auto) 0.7 L 10^3/uL
(1.2-3.4)
Neutrophils % 83.3 H %
(42.2-75.2)
Lymphocytes % 8.6 L %
(20.5-51.1)
Potassium 2.8 L mmol/L
(3.5-5.1)
Chloride 97 L mmol/L
(98-107)
BUN 54 H mg/dl
(7-17)
Creatinine 1.9 H mg/dL
(0.6-1.0)
06/15/24 07:32
06/15/24 07:32
Vital Signs
Initial and Last Documented VS:
Initial Vital Signs
Pulse Resp BP Pulse Ox
45 18 182/71 96
06/15/24 07:15 06/15/24 07:15 06/15/24 07:15 06/15/24 07:15
Last Documented Vital Signs
Temp Pulse Resp BP Pulse Ox
98.3 F 46 20 166/71 97
06/15/24 07:46 06/15/24 09:47 06/15/24 09:45 06/15/24 10:00 06/15/24 09:45
MDM/Problems Addressed
MDM/Problems Addressed:
78-year-old female presents after falling, no external findings concerning for trauma, no reported head strike. Given the frequency of her falls labs were obtained showing significant dehydration with hypokalemia likely secondary to poor p.o.
intake coupled with thiazide diuretic use. Given her functional debility and general frail appearance we will admit her to the hospitalist service for further IV fluid resuscitation and potassium repletion in addition to PT/OT evaluation
*Critical Care Note
Total Time (30-74mins, 75-104mins- exclusive of procedures): Not Applicable
Update Note
Update Note:
Discussed case with pt's daughter and son via phone. They would like her to be admitted with consideration of SNF if appropriate given the frequency of her falls recently, also noted that she has not been eating/drinking much recently
ED Attending Note
-
Portions of this chart may have been created with voice recognition software.� Occasional wrong word or��sound alike� substitutions may have occurred due to the inherent limitations of voice recognition software.
Discharge Plan
Departure
Patient Disposition: Admit
Date of Disposition: 06/15/24
Time of Disposition: 08:49
Admit to: Telemetry
Presentation/result/management discussed w/ accepting MD/DO: Hospitalist
Discharge Problem:
Acute dehydration, Acute hypokalemia, Acute kidney injury, Ambulatory dysfunction
Prescriptions:
No Action
amantadine HCl 100 MG capsule
100 mg PO BID
albuterol sulfate [Ventolin HFA] 90 MCG/PUFF HFA aerosol inhaler
2 puff inhalation R Q6HPRN PRN (Reason: sob)
carbidopa-levodopa 25-100 mg Tablet
1 tab PO TID
lorazepam 1 mg Tablet
1 mg PO HS Qty: 1 0RF
verapamil 180 mg Tablet Extended Release
180 mg PO DAILY
celecoxib 200 mg Capsule
200 mg PO DAILY
acetaminophen-codeine 300-30 mg Tablet
1 tab PO QIDPRN PRN (Reason: severe pain)
cholecalciferol (vitamin D3) [Vitamin D3] 25 mcg (1,000 unit) Tablet
25 mcg PO DAILY
ondansetron HCl 4 mg Tablet
4 mg PO DAILYPRN PRN (Reason: nausea)
sertraline [Zoloft] 100 mg Tablet
50 mg PO DAILY
melatonin 3 mg Tablet
3 mg PO HSPRN PRN (Reason: sleep)
hydrochlorothiazide 12.5 mg Capsule
12.5 mg PO DAILY
albuterol sulfate 2.5 mg /3 mL (0.083 %) Solution For Nebulization
2.5 mg INHALATION R Q6HPRN PRN (Reason: sob)
albuterol sulfate 2.5 mg /3 mL (0.083 %) Solution For Nebulization
2.5 mg INHALATION R QID
Lotrimin AF 2 % Aerosol,[place]
1 spray TOPICAL DAILY
calcium carbonate-vitamin D3 [Calcium 600 + D(3)] 600 mg-10 mcg (400 unit) Tablet
1 tab PO DAILY
lisinopril 20 MG tablet
40 mg PO DAILY
Referrals:
Sherice Weaver MD [Family Provider] -
Interventions
Interventions:
*Risk Screen - Suicide Last Done: 06/15/24 07:34
*General Assessment Last Done: 06/15/24 07:34
*Neglect/Abuse Screening Last Done: 06/15/24 07:37
*ED COVID-19 Vaccine History Last Done: 06/15/24 07:34
ED-Musculoskeletal Assessment Last Done: 06/15/24 07:45
ED- Neurological Assessment Last Done: 06/15/24 07:38
ED-Skin Assessment Last Done: 06/15/24 07:46
Discharge Date and Time
Print Language: BELARUSIAN
[2024-06-15 07:39] LABS: % Basophils 0.7 % (0-2); % Eosinophils 0.3 % (0-6); % Immature Granulocytes 0.4 % (0-0.5); % Lymphocytes 8.6 % (20.5-51.1); % Monocytes 6.7 % (1.7-9.3); % Neutrophils 83.3 % (42.2-75.2); Absolute Basophils 0.1 10^3/uL (0-0.2); Absolute Lymphocytes 0.7 10^3/uL (1.2-3.4); Absolute Monocytes 0.5 10^3/uL (0.1-0.6); Absolute Neutrophils 6.4 10^3/uL (1.4-6.5); Hematocrit 42.1 % (37.0-47.0); Hemoglobin 14.4 g/dL (12.0-16.0); Mean Corp Hgb Conc. 34.2 g/dL (33.0-37.0); Mean Corpuscular Hgb 31.2 pg (27.0-31.0); Mean Corpuscular Volume 91.1 fL (81.0-99.0); Mean Platelet Volume 9.3 fL (7.4-10.4); Nucleated Red Blood Cells % 0 %; Platelet Count 183 10^3/uL (130-400); Red Blood Cell Count 4.62 10^6/uL (4.20-5.40); Red Cell Dist. Width 13.1 % (11.5-14.5); White Blood Cell Count 7.7 10^3/uL (4.8-10.8)
[2024-06-15 08:09] LABS: ALT (SGPT) 16 U/L (0-35); AST (SGOT) 31 U/L (14-36); Albumin 4.6 g/dl (3.5-5.0); Alkaline Phosphatase 90 U/L (38-126); Blood Urea Nitrogen 54 mg/dl (7-17); Calcium 9.6 mg/dl (8.4-10.2); Carbon Dioxide 30 mmol/L (22-30); Chloride 97 mmol/L (98-107); Estimated Creatinine Clearance 18 ml/min; Glucose 95 mg/dl (70-99); Potassium 2.8 mmol/L (3.5-5.1); Sodium 142 mmol/L (135-145); Total Bilirubin 1.1 mg/dl (0.2-1.3); Total Protein 6.8 g/dl (6.3-8.2); eGFR 26.36
[2024-06-15] MEDS: NSS 1000 IV ×2 (08:40→16:45)
[2024-06-15] MEDS: KCL ELIXIR 40 MEQ PO (08:58)
[2024-06-15] MEDS: KCL 160 MEQ IV (08:59)
[2024-06-15] MEDS: ZESTRIL 40 MG PO (09:47)
[2024-06-15] MEDS: SYMMETREL 100 MG PO (09:49)
[2024-06-15] MEDS: SINEMET 25-100 1 TABLET PO ×3 (09:49→21:05)
--- NOTE | 2024-06-15 12:52 | HPS.HSE ---
Family Physician
-
Family Physician: Sherice Weaver
Chief Complaint
-
Falls
History of Present Illness
78 year-old patient lives in a personal care setting locally. Sent in because of fall. She says she probably had 8 falls in the last week. Luckily she did not hurt herself. She is got a longstanding history of Parkinson's and patient thinks it
is with her Parkinson's which may be contributing to the falls. She has seen more balance issues lately.
No lightheadedness or dizziness she says. No syncope.
She sees a Parkinson's specialist at [facility]. Last time she was seen no changes were made. She is not only on medication but also on neurostimulator which was placed in 2018. She missed the last week appointment as she got delayed in the
traffic.
She says her blood pressure has been lately more difficult to control and her primary care added hydrochlorothiazide 4 weeks ago. She has been lately having decreased appetite not necessarily related to hydrochlorothiazide. No diarrhea. No nausea
vomiting. No abdominal pain. Since hydrochlorothiazide she did not have any lab work. Today noted to have severe hypokalemia with potassium of 2.8 and BUN of 54 creatinine of 1.9 which is a change for her. Denies any urinary symptoms of voiding
difficulty, dysuria or frequency of urine.
Medical History
Past Medical History
Past Medical History: Reports Asthma (She admitted to a history of asthma since she was a child she has albuterol nebs that she uses when she has outbreaks which are infrequent no more than 1-2 a year.) and HTN
Additional Past Medical History:
Parkinson's and follows with Dr. España at [facility]/no recent changes in her Sinemet
Past Surgical History: Reports None and Orthopedic
Additional Past Surgical History:
Brain stimulator
Social History
Tobacco: Non-smoker
Alcohol: None
Drug: None
Personal:
Living: With Family
Employment: Retired
Family History
Family History: Not pertinent
Allergies / Home Medications
Allergies reflects when Allergies were last updated in [facility].
Home Medications with original date entered in [facility]
Allergy/Medication List:
Allergies
Allergy/AdvReac Type Severity Reaction Status Date / Time
Cephalosporins Allergy Patient Verified 10/09/23 11:52
unaware of
this
allergy
hydromorphone [From Dilaudid] Allergy hallucinate Verified 10/09/23 11:52
s
penicillin G Allergy SEE BELOW Verified 10/09/23 11:52
Penicillins Allergy SEE BELOW Verified 10/09/23 11:52
Home Medications
albuterol sulfate 90 mcg/actuation aerosol inhaler (Ventolin HFA) 1 puff inhalation PRN PRN as needed 12/10/17
amantadine HCl 100 mg capsule 100 mg PO BID 12/10/17
carbidopa 25 mg-levodopa 100 mg tablet 1 tab PO TID 09/06/22
lisinopril 20 mg tablet 20 mg PO DAILY #0 tabs 10/03/22
lorazepam 1 mg tablet 1 mg PO HS #1 tab 10/03/22
prednisone 20 mg tablet 40 mg PO DAILY 4 days #8 tabs 10/09/23
Review of Systems
-
Constitutional: Denies Fever or Chills
EENT: Denies Sore Throat
Respiratory: Denies Trouble Breathing (improved from recent; usually exertional SOB)
Cardiac: Denies Chest Pain or Palpitations
Abdomen/GI: Reports Anorexia; Denies Abdominal Pain, Nausea, Vomiting or Diarrhea
: Denies Dysuria
Neurological: Denies Dizzy
Physical Exam
Vital Signs
Vital Signs
Temp Pulse Resp BP Pulse Ox
98.3 F 52 20 164/68 97
06/15/24 07:46 06/15/24 12:18 06/15/24 09:45 06/15/24 12:18 06/15/24 09:45
Physical Exam
General: No Apparent Distress
HEENT: Moist mucous membranes
Respiratory: Clear and Non Labored Respirations; No Accessory Resp Muscle Use
Cardiac: S1/S2 and Regular Rhythm
GI: Soft, Non Tender, Non Distended and Normal Bowel Sounds
Musculoskeletal: No Edema
Neuro: AO x 3, No Motor Deficits and Tremors (PD tremor)
Psych: Calm; No Confused
Laboratory Results
-
06/15/24 07:32
06/15/24 07:32
Laboratory Results
Total Bilirubin 1.1 mg/dl (0.2-1.3) 06/15/24 07:32
AST 31 U/L (14-36) 06/15/24 07:32
ALT 16 U/L (0-35) 06/15/24 07:32
Alkaline Phosphatase 90 U/L (38-126) 06/15/24 07:32
Data Reviewed
-
Lab Data: Labs Reviewed by me
Impression/Plan
-
Recurrent falls suspect probably PATRICIA and hypokalemia related. She has propensity for falls from Parkinson's disease at baseline. Will collect the electrolyte disturbances and follow PT eval and see if she is back to her baseline.
PATRICIA-suspect secondary to recent hydrochlorothiazide use. Start on cautious IV fluids and follow creatinine improvement and symptom improvements.
Severe hypokalemia-again suspect probably HCTZ related-correct. Hold hydrochlorothiazide and follow.
Essential hypertension-recently issues with control. Continue with her home regimen of lisinopril and verapamil. Consider adding additional medication as required.
Parkinson's disease-continue to hold medication. She has a brain stimulator in place.
DNR/DNI.
Discussed with son who is a gas regulator repairer on phone regarding findings and treatment plan.
[2024-06-15] MEDS: VENTOLIN NEBULES 2.5 MG INH ×2 (16:14→19:28)
[2024-06-15] MEDS: KCL 40 MEQ PO (16:56)
[2024-06-15] MEDS: HEPARIN 5000 UNITS SC (21:05)
[2024-06-15] MEDS: ATIVAN 1 MG PO (21:05)
[2024-06-15] MEDS: TYLENOL #3 1 TABLET PO (21:14)
[2024-06-16] VITALS (8 sets, daily range): BP systolic 111–171; BP diastolic 63–86; PULSE 93
--- NOTE | 2024-06-16 02:01 | PTCARENOTE ---
pt progressively more confused and uncooperative throughout shift, frequently setting off bed alarm, removing heart monitor.
pt becoming more aggressive, threatening staff. AVINASH Corona notified, received orders for b/l wrist restraints.
while placing restraints with 3 staff members present, pt stating 'i'd love to see you bitches in skilled nursing,' and 'people have been killed for less'
bed alarm remains active for safety. site monitor placed back on patient. plan of care ongoing.
[2024-06-16 07:26] LABS: Blood Urea Nitrogen 34 mg/dl (7-17); Calcium 8.6 mg/dl (8.4-10.2); Carbon Dioxide 25 mmol/L (22-30); Chloride 105 mmol/L (98-107); Estimated Creatinine Clearance 37 ml/min; Glucose 98 mg/dl (70-99); Potassium 3.9 mmol/L (3.5-5.1); Sodium 145 mmol/L (135-145); eGFR > 60.00
[2024-06-16] MEDS: VENTOLIN NEBULES 2.5 MG INH ×3 (07:27→20:31)
[2024-06-16] MEDS: SINEMET 25-100 1 TABLET PO ×3 (09:10→21:32)
[2024-06-16] MEDS: VITAMIN D3 (cholecalciferol) 25 MCG PO (09:10)
[2024-06-16] MEDS: OSCAL 500 + D 500 MG PO (09:10)
[2024-06-16] MEDS: ZOLOFT 50 MG PO (09:10)
[2024-06-16] MEDS: HEPARIN 5000 UNITS SC ×2 (09:10→20:27)
[2024-06-16] MEDS: CALAN EXTENDED RELEASE 180 MG PO (09:11)
[2024-06-16] MEDS: SYMMETREL 100 MG PO ×2 (10:38→20:27)
[2024-06-16] MEDS: ZESTRIL 40 MG PO (10:39)
--- NOTE | 2024-06-16 11:52 | W.PN.HOSP.TC ---
Today's Communication/Plan
-
DC IV fluids. Encourage oral intake. Follow electrolytes.
PT OT eval.
Assessment / Plan
Assessment / Plan
Recurrent falls suspect probably PATRICIA and hypokalemia related. She has propensity for falls from Parkinson's disease at baseline. Will correct the electrolyte disturbances and follow PT eval and see if she is back to her baseline.
PATRICIA-suspect secondary to recent hydrochlorothiazide use. normalized creatinine with IV fluids which I will hold further.
Severe hypokalemia-again suspect probably HCTZ related-corrected. Hold hydrochlorothiazide and follow.
Change in MS - Acute changes last night noted. Remains confused but follows commands and directable today. Nonfocal neurologically and gross exam. CT head on admission showed no evidence of acute findings. She has a deep brain stimulator wires
in place. She has mild diffuse cerebral cerebral volume loss and I suspect she may have underlying cognitive impairments. Will dw family if any cognitive impairments noted prior or at home. Follow clinically now .
Essential hypertension-recently issues with control. Continue with her home regimen of lisinopril and verapamil. Consider adding additional medication as required.
Parkinson's disease-continue to hold medication. She has a brain stimulator in place.
DNR/DNI.
DW RN
Total time spent on today's encounter was 52 minutes which included time spent in counseling the patient/family regarding diagnosis and treatment plan as listed above, goals of care, and symptom management. Case was discussed with nursing staff .
All labs and imaging personally reviewed by me. Remainder the time spent in detailed review of previous records, lab data, imaging, and other medical provider documentation.
Anticipated Discharge: 24 - 48 hours
Subjective/Interval History
-
Date of Service: June 16, 2024
This morning patient is alert but confused. She does not know where she is. She did not know why she came to the hospital. This is a 180 degrees for her since yesterday when I met her in the ER where she knew details of her medical diagnosis and
medication.
According to RN last night she went totally confused requiring event restraints apparently.
Denies pain. Denies any headache. Moving all 4 limbs. Denies any nausea vomiting or abdominal pain. Tolerating breakfast.
Objective Data
-
Labs:
Laboratory Results
06/16/24
06:34
Sodium 145
Potassium 3.9 D
Chloride 105
Carbon Dioxide 25
BUN 34 H
Creatinine 0.9
Glucose 98
Calcium 8.6
Vital Signs:
Vital Signs
Temp Pulse Resp BP Pulse Ox
98.1 F 66 16 121/72 96
06/16/24 09:08 06/16/24 11:25 06/16/24 11:25 06/16/24 10:39 06/16/24 09:08
I&O
06/15/24 06/16/24 06/17/24
06:59 06:59 06:59
Intake Total 200 / 200
Balance 200 / 200
Review of Systems
-
Unable to obtain full review of systems at this time due to: Other ( Due to cognitive impairment)
Physical Exam
-
General: No Apparent Distress
Respiratory: Non Labored Respirations; Negative Accessory Resp Muscle Use
Cardiac: Regular Rhythm and S1/S2; Negative Tachycardic
GI: Soft, Nontender, Nondistended and Normal Bowel Sounds
Neuro: Awake, Alert and No Motor Deficits; Negative Oriented, Tremors, Slurred Speech or Facial Droop
Psych: Calm and Confused; Negative Agitated
Data Reviewed
-
Labs: Labs Reviewed by me
--- NOTE | 2024-06-16 15:35 | W.PN.NEURO.1 ---
Today's Communication / Plan
-
.
Subjective/Objective
Subjective Data
Neurology consultation note
Requesting physician: Td Hanson MD
Reason for consultation: Change in mental
date of Service: June 16, 2024
CC: none
HPI: This is an 78-year-old woman who presented to [facility] on June 15, 2024 status post unwitnessed fall. Neurology consultation was requested for fluctuating mental status.
ER VS: BP�182/71, heart rate is 45, respiratory rate�18, afebrile saturating at 96 on room air
PDMP:Lorazepam 1 Mg�30 tabs filled in on 05/28/2024, 04/28/2024, Acetaminophen-Cod #3 60 tabs filled in on 05/18/2024
Admission labs: Creatinine 1.9�0.9, normal sodium, glucose, WBCs, LFTs
CT head�1.8 cm left frontal meningioma, DBS in place, diffuse cerebral and cerebellar atrophy
PMH: IPD, left frontal meningioma, HTN, DLP, CKD, MGUS, osteoporosis, vitamin D deficiency, insomnia, MONSE
PSH: DBS, BL TKA, discectomy with interbody fusion from L2-3 through L5-S1, thoracic spine fusion
SH:resides in independent/personal care at [place]; never smoker; has 4 children,
All:Cephalosporins, penicillin G, hydromorphone
ROS: Negative for headache, check pain
General: Laying in the bed, on the remote video monitor
Cardio: Regular rate. Extremities are without cyanosis or edema.
Neuro:
Mental Status: Alert, oriented to name, age, month, year. Did not know the location. Poor attention and comprehension. Follows simple requests. Nonfluent. No hemineglect
Cranial Nerves: Pupils 4mm equally round and reactive to light. EOMs full. BTT BL. No ptosis. No nystagmus. Face symmetric. Preserved hearing AU. Mild to moderate dysarthria.
Motor: All limbs are antigravity symmetrically.
Reflexes: Negative grasp bilaterally
Sensory: Limited due to poor attention
Coordination: No tremors myoclonic movement
Gait: deferred
Assessment and Plan:
I. Multifactorial encephalopathy (neurodegenerative, toxic, vascular)
II. Idiopathic Parkinson disease, status post TBI
III. Left frontal mass, likely meningioma
-Blood pressure optimization
-Aspiration precautions.
-Routine EEG
-Avoid dopamine blockers, CREMATORY OPERATOR suppressants and anticholinergic medications.
-please check TSH, free T4, vit B12, CK, ua, ua cx
-Will obtain collateral history regarding patient's cognitive and functional baseline
I personally reviewed all radiology and labs along with past medical records pertinent to current medical problems. Total time spent in patient care is 60 minutes.
Thank you for allowing us to participate in the care of this patient. We will continue to follow. Please do not hesitate to contact us with any questions or concerns.
Objective Data
Vital Signs
Temp Pulse Resp BP Pulse Ox
36.8 C 80 16 111/63 98
06/16/24 12:00 06/16/24 12:00 06/16/24 12:00 06/16/24 12:00 06/16/24 12:00
Lab Results
06/15/24 07:32
06/16/24 06:34
Sodium 145 mmol/L (135-145) 06/16/24 06:34
Potassium 3.9 mmol/L (3.5-5.1) D 06/16/24 06:34
BUN 34 mg/dl (7-17) H 06/16/24 06:34
Glucose 98 mg/dl (70-99) 06/16/24 06:34
Calcium 8.6 mg/dl (8.4-10.2) 06/16/24 06:34
Patient Allergies
Cephalosporins Allergy (Verified 06/14/24 10:11)
Patient unaware of this allergy
hydromorphone [From Dilaudid] Allergy (Verified 06/14/24 10:11)
hallucinates
penicillin G Allergy (Verified 06/14/24 10:11)
SEE BELOW
Penicillins Allergy (Verified 06/14/24 10:11)
SEE BELOW
Vital Signs and Labs
-
Vital Signs and Labs:
Vital Signs
Temp Pulse Resp BP Pulse Ox
37.1 C 73 18 171/86 96
06/16/24 16:00 06/16/24 16:00 06/16/24 16:00 06/16/24 16:00 06/16/24 16:00
Lab Results
06/15/24 07:32
06/16/24 06:34
Sodium 145 mmol/L (135-145) 06/16/24 06:34
Potassium 3.9 mmol/L (3.5-5.1) D 06/16/24 06:34
BUN 34 mg/dl (7-17) H 06/16/24 06:34
Glucose 98 mg/dl (70-99) 06/16/24 06:34
Calcium 8.6 mg/dl (8.4-10.2) 06/16/24 06:34
Medications
-
Medications:
Generic Name Dose Route Start Last Admin
Trade Name Freq PRN Reason Stop Dose Admin
Acetaminophen 650 mg 06/16/24 15:38
Acetaminophen 325 Mg Tablet PO 07/14/24 15:37
Q4HPRN PRN
mild pain /fever >100.4
Albuterol Sulfate 2.5 mg 06/15/24 15:51
Albuterol Nebs 2.5 Mg/3 Ml Ampul INH
R Q6HPRN PRN
sob
Protocol
Albuterol Sulfate 2.5 mg 06/15/24 16:00 06/16/24 15:49
Albuterol Nebs 2.5 Mg/3 Ml Ampul INH Not Given
R QID JULIANNE
Protocol
Amantadine HCl 100 mg 06/16/24 10:00 06/16/24 10:38
Amantadine 100 Mg Capsule PO 07/14/24 09:59 100 mg
BID JULIANNE Administration
Calcium/Vitamin D 500 mg 06/16/24 08:00 06/16/24 09:10
Calcium Carbonate 500 Mg/Vitamin D 5 Mcg (200 Units) Tablet PO 07/14/24 07:59 500 mg
DAILY JULIANNE Administration
Carbidopa/Levodopa 1 tablet 06/15/24 16:30 06/16/24 16:26
Carbidopa (25 Mg)/Levodopa (100 Mg) Regular Release Tablet PO 07/13/24 16:29 1 tablet
TID JULIANNE Administration
Cholecalciferol 25 mcg 06/16/24 08:00 06/16/24 09:10
Cholecalciferol (Vitamin D3) 25 Mcg Tablet (1,000 Units) PO 07/14/24 07:59 25 mcg
DAILY JULIANNE Administration
Heparin Sodium 5,000 units 06/15/24 20:00 06/16/24 09:10
Heparin 5,000 Units/Ml 1 Ml Vial SC 07/13/24 19:59 5,000 units
Q12 JULIANNE Administration
Lisinopril 40 mg 06/16/24 08:00
Lisinopril 20 Mg Tablet PO 07/14/24 07:59
DAILY JULIANNE
Lorazepam 1 mg 06/15/24 22:00 06/15/24 21:05
Lorazepam 1 Mg Tablet PO 07/13/24 21:59 1 mg
HS JULIANNE Administration
Melatonin 3 mg 06/15/24 22:00
Melatonin 3 Mg Tablet PO 07/13/24 21:59
HSPRN PRN
sleep
Sertraline HCl 50 mg 06/16/24 08:00 06/16/24 09:10
Sertraline 50 Mg Tablet PO 07/14/24 07:59 50 mg
DAILY JULIANNE Administration
Sodium Chloride 0 flush 06/15/24 17:00
Sodium Chloride 0.9% (Flush) Syringe IV 07/13/24 16:59
PER PROTOCOL JULIANNE
Verapamil HCl 180 mg 06/16/24 08:00 06/16/24 09:11
Verapamil 180 Mg (Extended Release) Tablet PO 07/14/24 07:59 180 mg
DAILY JULIANNE Administration
Home Medications
-
Home Medications
albuterol sulfate 90 mcg/actuation aerosol inhaler (Ventolin HFA) 2 puff inhalation R Q6HPRN PRN sob 12/10/17
amantadine HCl 100 mg capsule 100 mg PO BID parkinson's disease 12/10/17
carbidopa 25 mg-levodopa 100 mg tablet 1 tab PO TID parkinson's disease 09/06/22
acetaminophen 300 mg-codeine 30 mg tablet 1 tab PO QIDPRN PRN severe pain 10/11/23
celecoxib 200 mg capsule 200 mg PO DAILY Pain 10/11/23
cholecalciferol (vitamin D3) 25 mcg (1,000 unit) tablet (Vitamin D3) 25 mcg PO DAILY Supplement 10/11/23
verapamil 180 mg tablet,extended release 180 mg PO DAILY Heart Disease/Condition 10/11/23
hydrochlorothiazide 12.5 mg capsule 12.5 mg PO DAILY Blood Pressure 05/26/24
melatonin 3 mg tablet 3 mg PO HSPRN PRN sleep 05/26/24
ondansetron HCl 4 mg tablet 4 mg PO DAILYPRN PRN nausea 05/26/24
sertraline 100 mg tablet (Zoloft) 50 mg PO DAILY depression/anxiety 05/26/24
albuterol sulfate 2.5 mg/3 mL (0.083 %) solution for nebulization 2.5 mg inhalation R Q6HPRN PRN sob 06/15/24
albuterol sulfate 2.5 mg/3 mL (0.083 %) solution for nebulization 2.5 mg inhalation R QID Lung/Breathing Issues 06/15/24
calcium 600 mg (as carbonate)-vitamin D3 10 mcg (400 unit) tablet (Calcium 600 + D(3)) 1 tab PO DAILY Supplement 06/15/24
lisinopril 20 mg tablet 40 mg PO DAILY Blood Pressure 06/15/24
lorazepam 1 mg tablet 1 mg PO HS anxiety/sleep 06/15/24
miconazole nitrate 2 % topical spray (Lotrimin AF) 1 spray topical DAILY toe nails 06/15/24
[2024-06-16] MEDS: VENTOLIN NEBULES INH (15:49)
--- NOTE | 2024-06-16 16:27 | CM ---
Confused patient on medsitter who lives at [facility] She has Parkinson and has had more falls and more confused lately.. She is assited all activities of daily living.She uses walker and wheelchair.Spoke with lucia Galloway on phone.
Pharmacy [facility]
PCP Dr Sherice Weaver
PLAN Ongoing dc planning
[2024-06-16 20:17] LABS: Creatine Phosphokinase 340 U/L (30-135)
[2024-06-16 21:02] LABS: TSH Reflex To Free T4 0.63 uIU/ml (0.47-4.68)
[2024-06-16 21:21] LABS: Vitamin B12 516 pg/ml (239-931)
[2024-06-16] MEDS: ATIVAN 1 MG PO (21:32)
[2024-06-17 03:20] VITALS: BP 122/95
[2024-06-17] MEDS: VENTOLIN NEBULES 2.5 MG INH ×4 (07:33→20:11)
[2024-06-17 07:48] VITALS: BP 174/89
[2024-06-17 07:54] LABS: Hematocrit 39.7 % (37.0-47.0); Hemoglobin 13.2 g/dL (12.0-16.0); Mean Corp Hgb Conc. 33.2 g/dL (33.0-37.0); Mean Corpuscular Hgb 30.1 pg (27.0-31.0); Mean Corpuscular Volume 90.6 fL (81.0-99.0); Mean Platelet Volume 10.1 fL (7.4-10.4); Platelet Count 153 10^3/uL (130-400); Red Blood Cell Count 4.38 10^6/uL (4.20-5.40); Red Cell Dist. Width 13.2 % (11.5-14.5); White Blood Cell Count 5.3 10^3/uL (4.8-10.8)
[2024-06-17 08:25] LABS: Blood Urea Nitrogen 31 mg/dl (7-17); Calcium 8.6 mg/dl (8.4-10.2); Carbon Dioxide 26 mmol/L (22-30); Chloride 105 mmol/L (98-107); Estimated Creatinine Clearance 42 ml/min; Glucose 80 mg/dl (70-99); Potassium 4.1 mmol/L (3.5-5.1); Sodium 146 mmol/L (135-145); eGFR > 60.00
[2024-06-17] MEDS: CALAN EXTENDED RELEASE 180 MG PO (09:51)
[2024-06-17] MEDS: VITAMIN D3 (cholecalciferol) 25 MCG PO (09:52)
[2024-06-17] MEDS: SYMMETREL 100 MG PO ×2 (09:52→21:07)
[2024-06-17] MEDS: SINEMET 25-100 1 TABLET PO ×3 (09:53→21:07)
[2024-06-17] MEDS: HEPARIN 5000 UNITS SC ×2 (09:53→21:07)
[2024-06-17] MEDS: OSCAL 500 + D 500 MG PO (09:53)
[2024-06-17] MEDS: ZESTRIL 40 MG PO (09:53)
[2024-06-17] MEDS: ZOLOFT 50 MG PO (09:57)
[2024-06-17 11:45] VITALS: BP 128/78
--- NOTE | 2024-06-17 14:58 | W.PN.HOSP.TC ---
Today's Communication/Plan
-
see plan above
Assessment / Plan
Assessment / Plan
Recurrent falls suspect probably PATRICIA and hypokalemia related. She has propensity for falls from Parkinson's disease at baseline.Follow PT eval and OT eval.
PATRICIA-suspect secondary to recent hydrochlorothiazide use. normalized creatinine with IV fluids .cw oral diet.
Severe hypokalemia-again suspect probably HCTZ related-corrected. Hold hydrochlorothiazide and follow.
Change in MS - Acute changes 06/15 night noted. R Nonfocal neurologically and gross exam. CT head on admission showed no evidence of acute findings. She has a deep brain stimulator wires in place. She has mild diffuse cerebral cerebral volume
loss and I suspect she may have underlying cognitive impairments. dw family/son-apparently was having more hallucinations in the last month or so.
Today patient is much improved. Oriented.
Suspect possibly TME. Getting EEG to rule out any seizures. Appreciate neurology input.
Continue to follow for any fluctuations
Essential hypertension-recently issues with control. Continue with her home regimen of lisinopril and verapamil. Consider adding additional medication as required. BP under goal.
Parkinson's disease-continue with home medication. She has a brain stimulator in place.
DNR/DNI.
DW RN
Anticipated Discharge: 24 - 48 hours
Subjective/Interval History
-
Date of Service: June 17, 2024
Patient much more alert today. Oriented to place, person, day and the month.
She is not sure what happened yesterday.
Denies any headache. Denies any limb weakness. Denies any tingling numbness in the hands or legs.
Denies any nausea vomiting or abdominal discomfort.
Objective Data
-
Labs:
Laboratory Results
06/17/24
06:36
WBC 5.3
Hgb 13.2
Hct 39.7
Plt Count 153
Sodium 146 H
Potassium 4.1
Chloride 105
Carbon Dioxide 26
BUN 31 H
Creatinine 0.8
Glucose 80
Calcium 8.6
Vital Signs:
Vital Signs
Temp Pulse Resp BP Pulse Ox
97.6 F 65 17 128/78 96
06/17/24 11:45 06/17/24 11:45 06/17/24 11:45 06/17/24 11:45 06/17/24 11:45
I&O
06/16/24 06/17/24 06/18/24
06:59 06:59 06:59
Intake Total 200 / 200 1100 / 1100
Balance 200 / 200 1100 / 1100
Review of Systems
-
Respiratory: Denies Trouble Breathing
Cardiac: Denies Chest Pain
Neuro: Denies Dizzy
Physical Exam
-
General: Comfortable
Respiratory: Non Labored Respirations; Negative Accessory Resp Muscle Use
Cardiac: Regular Rhythm and S1/S2
GI: Soft, Nontender, Nondistended and Normal Bowel Sounds
Neuro: AO x 3 and No Motor Deficits; Negative Tremors, Slurred Speech or Facial Droop
Psych: Calm; Negative Confused (today) or Agitated
Data Reviewed
-
Labs: Labs Reviewed by me
[2024-06-17 15:00] VITALS: BP 150/56
[2024-06-17 18:40] LABS: Urine Albumin Trace (Neg - Trace); Urine Bilirubin Negative (Negative); Urine Character Clear (Clear); Urine Color Yellow; Urine Glucose Trace (Negative); Urine Ketone Trace (Negative); Urine Leukocyte Negative (Negative); Urine Nitrite Negative (Negative); Urine Occult Blood Negative (Negative); Urine Urobilinogen Negative (Neg - 1+)
[2024-06-17 19:53] VITALS: BP 144/65
[2024-06-17] MEDS: ATIVAN 1 MG PO (22:09)
[2024-06-17] MEDS: TYLENOL 650 MG PO (22:09)
[2024-06-17 23:54] VITALS: BP 175/80
[2024-06-18] VITALS (7 sets, daily range): BP systolic 99–169; BP diastolic 65–93; PULSE 73–75
[2024-06-18] MEDS: VENTOLIN NEBULES 2.5 MG INH ×3 (07:49→19:37)
[2024-06-18] MEDS: VITAMIN D3 (cholecalciferol) 25 MCG PO (10:15)
[2024-06-18] MEDS: CALAN EXTENDED RELEASE 180 MG PO (10:15)
[2024-06-18] MEDS: SYMMETREL 100 MG PO ×2 (10:15→21:19)
[2024-06-18] MEDS: ZOLOFT 50 MG PO (10:15)
[2024-06-18] MEDS: ZESTRIL 40 MG PO (10:16)
[2024-06-18] MEDS: HEPARIN 5000 UNITS SC ×2 (10:16→23:11)
[2024-06-18] MEDS: OSCAL 500 + D 500 MG PO (10:20)
[2024-06-18] MEDS: SINEMET 25-100 1 TABLET PO ×3 (10:25→21:19)
[2024-06-18] MEDS: TYLENOL 650 MG PO ×2 (10:31→21:17)
--- NOTE | 2024-06-18 10:41 | W.PN.HOSP.TC ---
Today's Communication/Plan
-
Cardiology eval and DC planning
Assessment / Plan
Assessment / Plan
Recurrent falls suspect probably PATRICIA and hypokalemia related. She has propensity for falls from Parkinson's disease at baseline.Follow PT eval and OT eval.
PATRICIA-suspect secondary to recent hydrochlorothiazide use. normalized creatinine with IV fluids .cw oral diet.
Severe hypokalemia-again suspect probably HCTZ related-corrected. Hold hydrochlorothiazide and follow.
Change in MS - Acute changes 06/15 night noted. R Nonfocal neurologically and gross exam. CT head on admission showed no evidence of acute findings. She has a deep brain stimulator wires in place. She has mild diffuse cerebral cerebral volume
loss and I suspect she may have underlying cognitive impairments. dw family/son-apparently was having more hallucinations in the last month or so.
Remains improved.
Suspect possibly TME from medication-patient had a combination of codeine and lorazepam the evening before her confusion. EEG report pending. Appreciate neurology input.
Essential hypertension-recently issues with control. Continue with her home regimen of lisinopril and verapamil. Consider adding additional medication as required. BP under goal.
Abnormal heart rythm -asymptomatic episodes of what looks like type II heart block noted-will consult cardiology.
Parkinson's disease-continue with home medication. She has a brain stimulator in place.
DNR/DNI.
DW RN
DW Daughter
If ok from cardiology , after PT will dc back to [facility].
Anticipated Discharge: Today
Subjective/Interval History
-
Date of Service: June 18, 2024
No further episodes of confusion.
She is alert and oriented.
Voicing no specific complaints.
PT waiting at the bedside to assess.
Patient denies any GI symptoms of nausea vomiting or abdominal pain. Tolerating diet.
No shortness of breath or chest pain.
She says she is troubled with chronic pain from her back for which she takes that Tylenol with codeine. Since the suspicion of change in mental status is from combination of clonidine and lorazepam ,advised her to consider an alternate with
tramadol. She wants to do that but she also wants to keep herself on lorazepam which she has been taking for many months.
Objective Data
-
Vital Signs:
Vital Signs
Temp Pulse Resp BP Pulse Ox
98.5 F 67 16 169/90 94
06/18/24 07:15 06/18/24 07:52 06/18/24 07:52 06/18/24 07:15 06/18/24 07:52
I&O
06/17/24 06/18/24 06/19/24
06:59 06:59 06:59
Intake Total 1100 / 1100 420 / 420
Balance 1100 / 1100 420 / 420
Review of Systems
-
Cardiac: Denies Chest Pain, Palpitations or Syncope
Neuro: Denies Dizzy
Physical Exam
-
General: Comfortable
Respiratory: Non Labored Respirations; Negative Accessory Resp Muscle Use
Cardiac: Regular Rhythm and S1/S2
GI: Soft
Musculoskeletal: No Edema
Neuro: AO x 3 and No Motor Deficits; Negative Tremors, Slurred Speech or Facial Droop
Psych: Calm; Negative Confused or Agitated
--- NOTE | 2024-06-18 11:01 | CON.CAR ---
Addendum entered and electronically signed by Jorge Raymond MD (Ellie) 06/18/24 13:39:
I saw and examined the patient.
The CHIEF BANK EXAMINER's note was reviewed and I agree with the note.
Comment:
78-year-old female with severe MR, hypertension, and Parkinson's disease who initially presented with a fall. Per her daughter she has had 3-4 falls in the past week or so. On telemetry she was noted to have second-degree Mobitz 2 AV block.
Physical exam: cachexia, regular rate and rhythm, no murmurs rubs or gallops, no lower extremity edema, no JVD
Labs: Normal CBC, creatinine 0.8
ECG: Sinus rhythm with IVCD
Secondary AV block Mobitz type II: Plan for permanent pacemaker today. Please keep n.p.o. starting now.
Severe MR: Plan for MitraClip later this month.
Hypertension: Continue antihypertensives. Blood pressure is labile so would not titrate at this time.
PATRICIA, hypokalemia: Resolved
Original Note:
Consultation
Consultation Request
Date/Time Consultation Requested: 06/18/24 10:40a
Date/Time Consultation Performed: 06/18/24 11a
Requesting Provider: Dr. Hanson
Performing Provider: AVINASH Fraga for Dr. Raymond
Reason for Consultation: heart block
Medical History
-
Chief Complaint: fall
History of Present Illness:
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 She was noted to have PATRICIA and
hypokalemia, admitted to hospitalist service, thought to be related to HCTZ use and discontinued. Now she has normal renal function and normal potassium. Tele reveals bradycardia, RBBB and 2:1 heart block Mobitz II. She admits to feeling
dizzy/lightheaded after sitting down on the toilet at home for the last 2 weeks. Lightheadedness lasts for seconds then resolves on its own. She denies lightheadedness prior to falling at home.
Past Medical History
Past Medical History: Other (as above)
Past Surgical History: Gynecological (hysterectomy), Orthopedic (right TKA) and Other (brain stimulator)
Social History
Tobacco: Non-Smoker
Alcohol: None
Personal: Single
Living: Alone ([facility])
Family History
Family History: Reviewed & Not Pertinent
Allergies / Home Medications
Allergy/AdvReac Type Severity Reaction Status Date / Time
Cephalosporins Allergy Patient Verified 06/14/24 10:11
unaware of
this
allergy
hydromorphone [From Dilaudid] Allergy hallucinate Verified 06/14/24 10:11
s
penicillin G Allergy SEE BELOW Verified 06/14/24 10:11
Penicillins Allergy SEE BELOW Verified 06/14/24 10:11
�Medication �Instructions �Recorded �Confirmed �Type
albuterol sulfate 90 mcg/actuation 2 puff inhalation R Q6HPRN PRN sob 12/10/17 06/15/24 History
aerosol inhaler (Ventolin HFA)
amantadine HCl 100 mg capsule 100 mg PO BID parkinson's disease 12/10/17 06/15/24 History
carbidopa 25 mg-levodopa 100 mg 1 tab PO TID@0800,1500,2000 09/06/22 06/17/24 History
tablet parkinson's disease
acetaminophen 300 mg-codeine 30 mg 1 tab PO QIDPRN PRN severe pain 10/11/23 06/15/24 History
tablet
celecoxib 200 mg capsule 200 mg PO DAILY Pain 10/11/23 06/15/24 History
cholecalciferol (vitamin D3) 25 25 mcg PO DAILY Supplement 10/11/23 06/15/24 History
mcg (1,000 unit) tablet (Vitamin
D3)
verapamil 180 mg tablet,extended 180 mg PO DAILY Heart 10/11/23 06/15/24 History
release Disease/Condition
hydrochlorothiazide 12.5 mg capsule 12.5 mg PO DAILY Blood Pressure 05/26/24 06/15/24 History
melatonin 3 mg tablet 3 mg PO HSPRN PRN sleep 05/26/24 06/15/24 History
ondansetron HCl 4 mg tablet 4 mg PO DAILYPRN PRN nausea 05/26/24 06/15/24 History
sertraline 100 mg tablet (Zoloft) 50 mg PO DAILY depression/anxiety 05/26/24 06/15/24 History
albuterol sulfate 2.5 mg/3 mL 2.5 mg inhalation R Q6HPRN PRN sob 06/15/24 06/15/24 History
(0.083 %) solution for nebulization
albuterol sulfate 2.5 mg/3 mL 2.5 mg inhalation R QID 06/15/24 06/15/24 History
(0.083 %) solution for nebulization Lung/Breathing Issues
calcium 600 mg (as 1 tab PO DAILY Supplement 06/15/24 06/15/24 History
carbonate)-vitamin D3 10 mcg (400
unit) tablet (Calcium 600 + D(3))
lisinopril 20 mg tablet 40 mg PO DAILY Blood Pressure 06/15/24 06/15/24 History
lorazepam 1 mg tablet 1 mg PO HS anxiety/sleep 06/15/24 06/15/24 History
miconazole nitrate 2 % topical 1 spray topical DAILY toe nails 06/15/24 06/15/24 History
spray (Lotrimin AF)
Review of Systems
-
History Source: Patient
All other systems: Negative unless noted
Physical Exam
Vital Signs
Temp Pulse Resp BP Pulse Ox
98.5 F 67 16 169/90 94
06/18/24 07:15 06/18/24 07:52 06/18/24 07:52 06/18/24 07:15 06/18/24 07:52
Lab Results
06/17/24 06:36
06/17/24 06:36
Physical Exam
General: No Apparent Distress and Other (thin, frail)
HEENT: Normocephalic and Anicteric
Respiratory: Clear and Non Labored Respirations
Cardiac: S1/S2, Regular Rhythm and Murmur (3/6 DINA)
Breast: Deferred by me
GI: Soft, Non Tender, Non Distended and Normal Bowel Sounds
Rectal: Deferred by Provider
Genito-urinary: Clear Urine
Musculoskeletal: No Clubbing, No Cyanosis and No Edema
Neuro: AO x 3
Hematologic/Lymphatic: No Lymphadenopathy
Psych: Calm
Impression / Plan
-
2:1 Heart block - Mobitz II.
- new on tele with RBBB as well.
- new lightheadedness for the last 2 weeks intermittently.
- PPM indicated, reviewed with patient and she is agreeable.
- will review timing of PPM with EP cardiology.
Mitral regurgitation - severe.
- scheduled for MitraClip 07/08/[address] Ignacio.
HTN - labile readings here in the hospital.
- on Lisinopril 40mg daily and Verapamil extended release 180mg daily.
- HCTZ 12.5 mg stopped due to PATRICIA and hypokalemia.
- continue to monitor.
Parkinson's disease - chronic on meds.
- has brain stimulator, right side chest.
PATRICIA - resolved.
Hypokalemia - repleted and stable.
Data Reviewed
-
EKG: Tracing Personally Visualized and interpreted (poor data quality, NSR 72 bpm, RBBB)
Medical Tests (Nuc Med, Echo etc): Report Reviewed by me (KAIN 05/26/24: 50-55%, thickend mitral valve leaflets, prolapse at P2/P3, severe MR, highly eccentric anteriorly directed jet, no MS, small pericardial effusion, no PFO, hypermobile interatrial
septum)
Labs: Labs Reviewed by me
Old Records: Reviewed
--- NOTE | 2024-06-18 12:04 | CM ---
Addendum entered by DEMETRIUS Lewis 06/18/24 14:32:
Spoke with patient's daughter who stated that she was agreeable with Skilled care at [facility] when patient is medically stable. Reviewed IMM with patient's daughter, now on chart.
Original Note:
Reviewed chart, placed a call to [facility] admissions and spoke with Katerina who confirmed that she can take patient back today. # For report [phone] and [phone]. [address] Hanson who stated that if Cardiology clears patient
will be medically stable to discharge back to SNF.
Plan: Case management will continue to follow and assist with discharge planning. SNF when stable.
[2024-06-18] MEDS: VENTOLIN NEBULES INH (15:32)
--- NOTE | 2024-06-18 17:03 | ITS.CL.PACE ---
Pricing Intern - Pacemaker Implant
Pacemaker Implant
Procedure Report:
Date of Procedure: June 18, 2024.
Procedure: Dual Chamber Conduction Pacemaker Implantation.
Indication: The pacemaker is for the treatment of nonreversible symptomatic bradycardia due second degree atrioventricular block (RBBB, Mobitz II, and 2:1 AV block).
Performing physician: Raymon Rothman MD., [facility].
Implants:
Pulse Generator: Medtronic; Model# [id number]; Serial# [id number].
RA Lead: Medtronic; Model# 5076-45cm; Serial# [id number].
RV Lead: Medtronic; Model# 3830-69cm; Serial# [id number].
Technique: A time out was performed. The procedure site was identified. The patient was anesthetized by the anesthesia service. Preoperative cefazolin was administered. The patient was prepped and draped in the usual fashion. Local anesthetic was
applied to the left prepectoral subcutaneous tissue. A 3 inch incision was made along the left deltopectoral groove. Dissection was carried to the fascia. The left cephalic vein was easily isolated and proximal and distal control with 2-0 Vicryl
suture. Using a micropuncture needle to access the cephalic vein under direct visualization a glidewire was advanced into the central circulation. A 7 Fr introducer was placed to allow two 0.35 J wires to be advanced. The leads were introduced with
hemostatic peel away introducer sheaths using a retained guidewire technique. The RV lead was placed using utilizing the [employer] delivery catheter ([id number]) that was advanced to the left bundle area as confirmed by fluoroscopy in the SHAINA and
GUTIERREZ projections. The lead tip was advanced. PVC morphology was reviewed. When a satisfactory location was identified (W pattern observed) the lead was screwed into position with serial turns. Septal engagement was confirmed with gentle torque
applied to the guide sheath. After each series of turns (2-3) unipolar sensed morphology and impedance, and paced morphology of V1 was analyzed. The lead was further advanced until satisfactory morphology and electrical characteristics were
confirmed. The RV lead was placed in the third location evaluated. The long guiding sheath was cut and removed from the RV without change in lead position, impedance, sensing, or capture. The ventricular lead was secured to the pectoralis muscle and
fascia with two 0-silk sutures. The atrial lead was placed in the mid to high lateral right atrial atrium. 8 volt pacing from each lead did not capture the diaphragm. The atrial leads was secured to the pectoralis muscle and fascia. A subcutaneous
pocket was created with Bovie cautery. Hemostasis was excellent. The leads were appropriately attached to the device. The pocket was irrigated with antibiotic solution. The device and leads were placed in the pocket. The incision was closed in
layers with absorbable suture. Steri-strips and a silver impregnated dressing were placed. Estimated blood loss was 5 ml. There were no complications. Fluoroscopy time 6 minutes and DAP 1.21 GyCM2. The device was then interrogated after skin
closure.
Lead Analysis:
RA lead: P: 3.1 mV; Threshold: 0.5 V @ 0.4 ms; Impedance: 437 ohms.
RV lead (bipolar): R: 9.4 mV; Threshold: 1 V @ 0.4 ms; Impedance: 741 ohms.
Paced QRS characteristics: V1 has QR morphology and the QRS measures less than 110 ms in duration, LVAT (stim to peak V5/V6) is 73 ms, and R peak V1 to R peak V6 is 33 ms.
Final Programming: DDDR 60-130 bpm.
Conclusion: Uncomplicated and successful conduction system Medtronic pacemaker implant. The pacing system is MRI conditional.
Recommendation: Routine post pacemaker care.
cc: Jose De Jesus Ruiz MD; Dilip Cam MD, and Christophe Ignacio MD.
[2024-06-18] MEDS: ORAJEL 10% GEL 1 APPLIC TOPICAL ×2 (17:54→23:09)
[2024-06-18] MEDS: ATIVAN 1 MG PO (21:20)
[2024-06-18] MEDS: MELATONIN 3 MG PO (23:09)
[2024-06-18] MEDS: ANCEF IV (23:10)
[2024-06-19] MEDS: ANCEF 5 IV ×2 (01:10→08:48)
[2024-06-19 03:56] VITALS: BP 188/94
[2024-06-19 04:50] VITALS: BP 184/90
[2024-06-19] MEDS: ZESTRIL 40 MG PO (06:02)
[2024-06-19] MEDS: CALAN EXTENDED RELEASE 180 MG PO (06:03)
[2024-06-19 07:12] LABS: Hematocrit 37.6 % (37.0-47.0); Hemoglobin 12.6 g/dL (12.0-16.0); Mean Corp Hgb Conc. 33.5 g/dL (33.0-37.0); Mean Corpuscular Hgb 30.2 pg (27.0-31.0); Mean Corpuscular Volume 90.2 fL (81.0-99.0); Mean Platelet Volume 10.1 fL (7.4-10.4); Platelet Count 137 10^3/uL (130-400); Red Blood Cell Count 4.17 10^6/uL (4.20-5.40); Red Cell Dist. Width 13.3 % (11.5-14.5); White Blood Cell Count 6.8 10^3/uL (4.8-10.8)
[2024-06-19 07:21] VITALS: BP 162/94
[2024-06-19] MEDS: VENTOLIN NEBULES 2.5 MG INH ×2 (07:23→11:18)
[2024-06-19 07:50] LABS: Blood Urea Nitrogen 30 mg/dl (7-17); Calcium 9.5 mg/dl (8.4-10.2); Carbon Dioxide 30 mmol/L (22-30); Chloride 103 mmol/L (98-107); Estimated Creatinine Clearance 37 ml/min; Glucose 96 mg/dl (70-99); Potassium 3.9 mmol/L (3.5-5.1); Sodium 144 mmol/L (135-145); eGFR > 60.00
--- NOTE | 2024-06-19 08:25 | W.PN.CD ---
Addendum entered and electronically signed by Jorge Raymond MD (Ellie) 06/19/24 10:47:
I saw and examined the patient.
The CAP CUTTER's note was reviewed and I agree with the note.
Comment:
78-year-old female with severe MR, hypertension, and Parkinson's disease who initially presented with a fall. Per her daughter she has had 3-4 falls in the past week or so. On telemetry she was noted to have second-degree Mobitz 2 AV block.
Telemetry unremarkable overnight. Pacemaker site looks good today and postop CXR was stable. Reviewed pacemaker restrictions. She is stable for discharge from a cardiology standpoint. She has an outpatient incision check with Dr. Ruiz on
06/25/2024 at 1 PM.
Original Note:
Today's Communication / Plan
-
s/p PPM, Aquacell dressing is intact.
stable for d/c from cardiac standpoint.
Impression / Plan
-
2:1 Heart block - Mobitz II, new.
- s/p DC Medtronic PPM 06/18/24.
- Aquacell dressing intact, no drainage/bleeding. pressure dressing removed this am.
- post PPM CXR is stable.
- reviewed left arm restrictions, Aquacell dressing instructions with patient.
- outpatient incision check 06/25/[address] Ignacio.
Mitral regurgitation - severe.
- scheduled for MitraClip 07/08/[address] Ignacio.
HTN - labile readings here in the hospital.
- on Lisinopril 40mg daily and Verapamil extended release 180mg daily, continue.
- HCTZ 12.5 mg stopped due to PATRICIA and hypokalemia.
- continue to monitor.
Parkinson's disease - chronic on meds.
- has brain stimulator, right side chest.
PATRICIA - resolved.
Hypokalemia - repleted and stable.
Physical Exam
Vital Signs/Labs
Vital Signs
Temp Pulse Resp BP Pulse Ox
98.2 F 72 16 162/94 94
06/19/24 07:21 06/19/24 07:24 06/19/24 07:24 06/19/24 07:21 06/19/24 07:24
06/19/24 06:46
06/19/24 06:46
Physical Exam
Constitutional: No acute distress
EENT: Anicteric
Cardiovascular: Rhythm & rate is regular
Respiratory: Respiratory effort normal and Lungs clear to auscul.
GI: Soft, Non tender and Normal bowel sounds
Neuro/Psych: AO x 3
Other: Skin (warm, dry ) and Cardiac Device Site (left pectoral incision site intact with Aquacell dressing intact)
Data Reviewed
-
Date of Service: June 19, 2024
Medical Decision Making: Reviewed Test Results
EKG: Tracing Personally Visualized and interpreted
Labs: Labs Reviewed by me
[2024-06-19] MEDS: ORAJEL 10% GEL 1 APPLIC TOPICAL ×2 (08:49→16:08)
[2024-06-19] MEDS: VITAMIN D3 (cholecalciferol) 25 MCG PO (08:50)
[2024-06-19] MEDS: SINEMET 25-100 1 TABLET PO ×2 (08:50→16:02)
[2024-06-19] MEDS: ZOLOFT 50 MG PO (08:50)
[2024-06-19] MEDS: HEPARIN 5000 UNITS SC (08:51)
[2024-06-19] MEDS: OSCAL 500 + D 500 MG PO (08:57)
[2024-06-19] MEDS: SYMMETREL 100 MG PO (08:57)
[2024-06-19 11:47] VITALS: BP 143/64
--- NOTE | 2024-06-19 13:14 | W.PN.HOSP.TC ---
Addendum entered and electronically signed by Td Hanson MD 06/19/24 13:23:
DW Neuro Dr Israel -EEG without epileptiform activity .Report will be in chart shortly.
Original Note:
Today's Communication/Plan
-
DC
Assessment / Plan
Assessment / Plan
Recurrent falls suspect probably PATRICIA and hypokalemia related. She has propensity for falls from Parkinson's disease at baseline. PT eval and OT eval recs for SNF.
PATRICIA-suspect secondary to recent hydrochlorothiazide use. normalized creatinine with IV fluids .cw oral diet.
Severe hypokalemia-again suspect probably HCTZ related-corrected. Hold hydrochlorothiazide and follow.
Change in MS - Acute changes 06/15 night noted. R Nonfocal neurologically and gross exam. CT head on admission showed no evidence of acute findings. She has a deep brain stimulator wires in place. She has mild diffuse cerebral cerebral volume
loss and I suspect she may have underlying cognitive impairments. dw family/son-apparently was having more hallucinations in the last month or so.
Remains improved.
Suspect possibly TME from medication-patient had a combination of codeine and lorazepam the evening before her confusion. EEG report pending. Appreciate neurology input.
Essential hypertension-recently issues with control. Continue with her home regimen of lisinopril and verapamil. Consider adding additional medication as required. BP under goal today.
Type 2 heart block -s/p PPM 06/18. Pacer site looks clean .Follow with cards as OP.
Parkinson's disease-continue with home medication. She has a brain stimulator in place.
DNR/DNI.
DW RN
DW Daughter at bedside
Medically stable for DC to rehab
More than 30 minutes spent in discharge including
Final examination of the patient
Summarizing hospital stay
Instructions for continuing care to all relevant caregivers
Preparation of discharge records, prescriptions, and referral forms
Total time spent (in minutes):35
Anticipated Discharge: Today
Subjective/Interval History
-
Date of Service: June 19, 2024
Status post permanent pacemaker yesterday. Denies any dizziness. Not much pain from pacemaker insertion site.
No further confusional episodes.
Objective Data
-
Labs:
Laboratory Results
06/19/24
06:46
WBC 6.8
Hgb 12.6
Hct 37.6
Plt Count 137
Sodium 144
Potassium 3.9
Chloride 103
Carbon Dioxide 30
BUN 30 H
Creatinine 0.9
Glucose 96
Calcium 9.5
Vital Signs:
Vital Signs
Temp Pulse Resp BP Pulse Ox
98.0 F 74 17 143/64 96
06/19/24 11:47 06/19/24 11:47 06/19/24 11:47 06/19/24 11:47 06/19/24 11:47
I&O
06/18/24 06/19/24 06/20/24
06:59 06:59 05:59
Intake Total 420 / 420 720 / 720
Balance 420 / 420 720 / 720
Review of Systems
-
Respiratory: Denies Trouble Breathing
Cardiac: Denies Chest Pain
Abdomen/GI: Denies Abdominal Pain, Nausea or Vomiting
Physical Exam
-
General: Comfortable
Respiratory: Non Labored Respirations; Negative Accessory Resp Muscle Use
Cardiac: Regular Rhythm, S1/S2 and Other (Pacemaker insertion site with clean dressing); Negative Tachycardic
GI: Soft
Neuro: AO x 3; Negative No Motor Deficits
Psych: Calm; Negative Confused or Agitated
Data Reviewed
-
Labs: Labs Reviewed by me
--- NOTE | 2024-06-19 13:29 | EEGC.RPT ---
Continuous EEG Report
Recording
Start Date of Data Reviewed: 06/17/24
End Date of Data Reviewed: 06/17/24
Report
TECHNICAL REMARKS:��This is a technically satisfactory eighteen channel record employing 21 disc electrodes applied according to a measured international 10-20 electrode placement system.��There were no significant technical difficulties.��The study
was done on a GOS[employer] System.
STUDY DURATION: 25 min 58 sec
�
CLINICAL HISTORY: This is an 78-year-old woman with encephalopathy. The study was requested to look for epileptiform abnormalities.
�
MEDICATIONS: Lorazepam
REPORT: �At the onset of the EEG, the patient is awake. The background activity consists of 9.5-10=10.5 Hz, persistent, posteriorly dominant, moderate amplitude, symmetric and rhythmic activity that is reactive to eye-opening. Anteriorly, it
consists of a mixture of low voltage indeterminate activity and 20-25 Hz, persistent, low amplitude, symmetric and rhythmic activity.� Stepwise intermittent photic stimulation (1-20 Hz) does not induce any abnormalities. Hyperventilation was not
performed. Drowsiness is characterized by low amplitude mixed frequency activity, decreased eye blinking, and muscle artifact. Excessive beta activity and muscle artifacts were present.
�
IMPRESSION: �This is a normal awake and drowsy EEG. There is no evidence of focal slowing or epileptiform activity.� A normal EEG does not rule out epilepsy. If the clinical picture warrants, a sleep-deprived awake and sleep record may be helpful.
�
�
--- NOTE | 2024-06-19 14:29 | PTCARENOTE ---
patient denies pain, tolerating diet, cachectic though, left anterior chest wall with Aquacel dressing c/d/i, turns with assist x2, vss, for discharge to [facility], will continue to monitor.
[2024-06-19 15:50] VITALS: BP 157/85
--- NOTE | 2024-06-19 16:12 | PTCARENOTE ---
patient uses brains stimulator to help with tremors
--- NOTE | 2024-06-19 17:25 | PTCARENOTE ---
patient transferred oob to bsc and chair, sat in chair for about 2 hours and tolerated activity well. transferred with assist x2. I did educate patient on s/p pacemaker activity restrictions as ordered.
== END 2024-06-19 17:29 | DRG 981 ==
LOC: 3 WEST ACU 13:15
PROVIDERS: Internal Medicine Cardiovascular Disease; Nurse Practitioner Adult Health; Physician Assistant; Psychiatry & Neurology Neurology; ADMITTING PHYSICIAN Internal Medicine; CONSULT PHYSICIAN Student in an Organized Health Care Education/Training Program; EMERGENCY PHYSICIAN Emergency Medicine; FAMILY PHYSICIAN Family Medicine
PROC: 02H63JZ Insertion of Pacemaker Lead into Right Atrium, Percutaneous Approach (ICD-10-PCS; 2024-06-18)
PROC: 0JH606Z Insertion of Pacemaker, Dual Chamber into Chest Subcutaneous Tissue and Fascia, Open Approach (ICD-10-PCS; 2024-06-18)
PROC: 02HK3JZ Insertion of Pacemaker Lead into Right Ventricle, Percutaneous Approach (ICD-10-PCS; 2024-06-18)
DX: N17.9 Acute kidney failure, unspecified (principal); G92.8 Other toxic encephalopathy; R64 Cachexia; Z68.1 Body mass index [BMI] 19.9 or less, adult; I44.1 Atrioventricular block, second degree; E87.6 Hypokalemia; I10 Essential (primary) hypertension; G20.A1 Parkinson's disease without dyskinesia, without mention of fluctuations; Z66 Do not resuscitate
CPT/HCPCS: 33208; 70450; 71045; 72125; 80048; 80053; 81003; 82550; 82607; 84443; 85025; 85027; 87070; 93005; 94640; 95816; 96361; 96374; 97112; 97163; 97167; 97535; 99285; C1769; C1785; C1887; C1892; C1898

== ENCOUNTER → 2024-06-22 09:47 | Outpatient (REF) | payer OTHER, MEDICARE, SELFPAY ==
[2024-06-22 10:46] LABS: Hematocrit 35.7 % (37.0-47.0); Hemoglobin 11.9 g/dL (12.0-16.0); Mean Corp Hgb Conc. 33.3 g/dL (33.0-37.0); Mean Corpuscular Hgb 31.6 pg (27.0-31.0); Mean Corpuscular Volume 94.7 fL (81.0-99.0); Mean Platelet Volume 9.9 fL (7.4-10.4); Platelet Count 124 10^3/uL (130-400); Red Blood Cell Count 3.77 10^6/uL (4.20-5.40); Red Cell Dist. Width 13.2 % (11.5-14.5); White Blood Cell Count 4.6 10^3/uL (4.8-10.8)
[2024-06-22 11:24] LABS: ALT (SGPT) 13 U/L (0-35); AST (SGOT) 19 U/L (14-36); Albumin 3.6 g/dl (3.5-5.0); Alkaline Phosphatase 84 U/L (38-126); Blood Urea Nitrogen 40 mg/dl (7-17); Calcium 10.1 mg/dl (8.4-10.2); Carbon Dioxide 30 mmol/L (22-30); Chloride 99 mmol/L (98-107); Glucose 86 mg/dl (70-99); Magnesium 1.5 mg/dl (1.6-2.3); Sodium 141 mmol/L (135-145); Total Bilirubin 0.4 mg/dl (0.2-1.3); Total Protein 5.8 g/dl (6.3-8.2); eGFR 56.95
== END ==
LOC: OLABWHC 09:47
PROVIDERS: ATTENDING PHYSICIAN Family Medicine
DX: Z95.0 Presence of cardiac pacemaker (principal); I10 Essential (primary) hypertension; N18.32 Chronic kidney disease, stage 3b
CPT/HCPCS: 36415; 80053; 83735; 85027

== ENCOUNTER 2024-06-27 09:34 | Inpatient (IN) | payer MEDICARE, OTHER, SELFPAY ==
[2024-06-26] VITALS (10 sets, daily range): BP systolic 102–147; BP diastolic 60–109; BMI 22.2; BMI 20.1
--- NOTE | 2024-06-26 13:55 | ED.GENMED ---
History of Present Illness
<Olena Gutierrez, APPRENTICE - Last Filed: 06/27/24 11:44>
General
Chief Complaint: Chest Pain
Source: patient
Exam Limitations: none
Time Seen by Provider: 06/26/24 13:55
Nursing documentation reviewed up to this point in time: agreed with
History of Present Illness
History of Present Illness:
78-year-old female with history of Parkinson's, deep brain stimulator, HTN, anxiety presents for chest pain. States yesterday she felt sudden pain across upper chest to right shoulder lasting 30 seconds, she took Tramadol with relief. Had no further
pain until this 8 am at breakfast, pain returned, was intermittent all day until it became constant at 1:15 p.m. (past hour) EMS gave her 325 ASA and NTG x 1 pt states pain went from 05/06 to 7/10. It hurts worse with deep breath. Pain is still
constant, across her upper chest and to both shoulders. Denies n/v/d/c. Denies SOB, it just hurts to breathe, denies abdominal pain.
Past History
<Olena Gutierrez, APPRENTICE - Last Filed: 06/27/24 11:44>
Past History
ED Past Medical History: Asthma, HTN and Other (Parkinson's)
ED Past Surgical History: Orthopedic and Other (neuro stimulator May 2017)
Social History
Tobacco: Non-smoker
Alcohol: None
Drug: None
Personal:
Living: with family
Employment: Retired
Review of Systems
<Olena Gutierrez, APPRENTICE - Last Filed: 06/27/24 11:44>
Review of Systems
Allergies reviewed?: Yes
All Other Systems: ROS reviewed and negative except as documented in HPI and ROS
Constitutional: Denies fever
Respiratory: Denies trouble breathing
Cardiac: Reports chest pain; Denies diaphoresis or syncope
ABD/GI: Denies abdominal pain, nausea or vomiting
: Reports no symptoms
Musculoskeletal: Reports no symptoms
Skin: Reports no symptoms
Neurological: Reports no symptoms
Phy Exam
<Olena Gutierrez APPRENTICE - Last Filed: 06/27/24 11:44>
Physical Exam
Physical Exam:
GENERAL: No acute distress. A&Ox3.
CONSTITUTIONAL: Afebrile.
EYES: clear, conjunctivae normal
Neck: Supple
ENMT: dry mucus membranes, Pharynx nl
RESPIRATORY: Regular respirations, nonlabored, lungs clear.
CARDIOVASCULAR: Regular rate and rhythm, no murmurs, no rubs.
GI: Soft, nontender, normal BS
MUSCULOSKELETAL: Chest wall tender to palpation/compression. No edema. Well perfused.
SKIN: Warm, dry, pink. R upper chest wall deep brain stimulator, L upper chest wall pacemaker, overlying skin appears normal
PSYCH: Anxiousl mood and affect. Well kept, interactive and appropriate
NEUROLOGIC: Awake, alert and oriented. No focal neurological deficits
Scores
<Olena Gutierrez, APPRENTICE - Last Filed: 06/27/24 11:44>
Heart Score for Chest Pain Patients
STEMI patient?: Not applicable
Course
<Olena Gutierrez, APPRENTICE - Last Filed: 06/27/24 11:44>
Orders/Labs/Results
Orders:
Orders
06/26/24 Breakfast
Regular
At Your Request: Limited, Jig Grinder Required
Does patient need a safe tray?: No
06/26/24 13:52
Electrocardiogram (*1) Urgent
Reason for Study: Chest Pain
Cardiac Monitoring- Treatment ONCE
EKG- Treatment ONCE
IV Insert/Care/Rem.- Treatment PRN
Interrogate Pacemaker- Treatment ONCE
O2 Therapy [RESP] Urgent
Titrate/Wean O2 to maintain O2 sat greater than (%): 90
Special Instructions: Maintain sats >/=90%
Pulse Ox/spot Check [RESP] Urgent
Quantity: 1
Special Instructions: ON ROOM AIR
06/26/24 14:09
Complete Blood Count/With Diff Urgent
Prothrombin Time Urgent
CR Chest - 2 Views Urgent
Comment:
Reason For Exam: chest wall pain
06/26/24 14:24
Ketorolac [Toradol] 15 mg IV NOW STA
06/26/24 14:56
Comprehensive Metabolic Panel Urgent
Troponin I Urgent
06/26/24 15:56
0.9% Sodium Chloride 500 ml [Nss] 500 ml IV BOLUS
06/26/24 18:00
Electrocardiogram (*1) Urgent
Reason for Study: Chest Pain
EKG- Treatment ONCE
06/26/24 18:03
Troponin I Urgent
06/26/24 19:55
Admit/Transfer Patient As Directed
Co-Sign Provider:
Level of Care: Observation services
Assign to:: IVU
Physician / Group: Eliseo
Diagnosis: Chest Pain
PRN Pain Medication Management As Directed
May give lesser potent ordered pain med per pt: Yes
preference::
Protocol:: Medication orders for pain may be administered in a
manner that supports deferring to patient preference
when the pt is:
- Requesting an ordered lesser potent pain medication.
Least to most potent pain medications are defined
as: acetaminophen < NSAID < tramadol < opioids
(morphine, oxycodone, hydromorphone).
- Requesting a lesser dose of the same medication IF
ORDERED.
- Requesting a less intrusive route of administration
if both routes are prescribed by the provider (PO <
IV).
06/26/24 19:57
Code Status As Directed
Resuscitation Status: Do not resuscitate
Reached after discussion with pt or family/Healthcare POA: Yes
Colchicine 0.6 mg PO NOW STA
06/26/24 19:58
DNR Bracelet Application ONCE
06/26/24 20:37
Ketorolac [Toradol] 10 mg IV Q6HPRN PRN
06/26/24 20:58
Acetaminophen [Tylenol] 650 mg PO Q4HPRN PRN
Albuterol Nebs [Ventolin Nebules] 2.5 mg INH R Q6HPRN PRN
Albuterol Nebs [Ventolin Nebules] 2.5 mg INH R QID
Amantadine [Symmetrel] 100 mg PO BID
Docusate Sodium [Colace] 100 mg PO BID
Tramadol HCl [Ultram] 50 mg PO Q6HPRN PRN
06/26/24 20:58
CARDIOLOGY CONSULT Routine
Consulting Provider: Raymon Rothman
Was physician already notified: Yes
Activity As Directed
Activity Level: Out of Bed-Early Mobility
With Assistance
I&O [Intake/ Output] As Directed
Frequency: q12h
Sequential Compression Device [Pneumatic Compression Sleeves] As Directed
Type: Knee high
Vital Signs As Directed
Frequency: Per unit guidelines
Weight As Directed
Frequency: Daily
DX Deep Vein Thrombosis Video Routine
DX Deep Vein Thrombosis Video Routine
06/26/24 21:00
Flush (0.9% Sodium Chloride) [Flush (Nss)] See Dose Instructions IV PER PROTOCOL
06/26/24 21:23
Pt Screening Request from [facility] Routine
06/26/24 22:00
Carbidopa/Levodopa [Sinemet 25-100] 1 tablet PO TID
Lorazepam [Ativan] 1 mg PO HS
Melatonin 3 mg PO HS
06/26/24 22:07
MRSA Screen Routine
EVELYN Source: Nose
Specimen Description:
06/26/24 23:42
Troponin I Routine
06/27/24 05:44
Basic Metabolic Panel IN AM
C-Reactive Protein Routine
Comment: ADD ON
Cardiovascular Evaluation Routine
Complete Blood Count/No Diff IN AM
Erythrocyte Sed Rate Routine
Comment: ADD ON
Glycohemoglobin (HgbA1c) Routine
Magnesium Routine
TSH Routine
Comment: ADD ON
Troponin I Q6H
06/27/24 07:33
Add On- LAB Routine
Tests Added?: ESR, CRP, TSH, Lipids, HgbA1c
06/27/24 07:37
Urinalysis Reflex To Culture Routine
Date Specimen was Collected: 06/27/24
Time Specimen was Collected: 09:30
06/27/24 07:56
COVID-19 Antigen Stat
Source: Nasal Swab
Influenza A+B Rapid Molecular Stat
EVELYN Source: Nasal Swab
Specimen Description:
06/27/24 08:00
Colchicine 0.6 mg PO DAILY
Lisinopril [Zestril] 40 mg PO DAILY
Magnesium Oxide 500 mg PO BID
Sertraline HCl [Zoloft] 50 mg PO DAILY
Verapamil Extended Release [Calan Extended Release] 180 mg PO DAILY
06/27/24 08:03
DDimer [D-Dimer] Stat
Procalcitonin Stat
PCT Algorithmm Indication: Respiratory
06/27/24 08:51
CT Chest Pe Study Urgent
Comment:
Reason For Exam: PE
0.9% Sodium Chloride 250 ml [Nss] 250 ml IV BOLUS
06/27/24 09:00
Blood Culture Q30M
EVELYN Source: Blood/Venous
Specimen Description:
06/27/24 09:30
Blood Culture Q30M
EVELYN Source: Blood/Venous
Specimen Description:
06/27/24 09:32
DX Deep Vein Thrombosis Video Routine
06/27/24 10:00
Pantoprazole [Protonix] 40 mg PO DAILY
06/27/24 12:00
Troponin I Q6H
06/27/24 16:00
Heparin 5,000 units SC Q8
06/27/24 18:00
Troponin I Q6H
06/28/24 06:00
Complete Blood Count/With Diff IN AM
Comprehensive Metabolic Panel IN AM
Abnormal Lab Results
06/26/24 06/26/24 06/26/24
14:09 14:56 18:03
WBC
RBC 4.07 L 10^6/uL
(4.20-5.40)
Hct
MCH 31.2 H pg
(27.0-31.0)
Absolute Neuts (auto) 7.7 H 10^3/uL
(1.4-6.5)
Absolute Lymphs (auto) 0.4 L 10^3/uL
(1.2-3.4)
Absolute Monos (auto) 1.0 H 10^3/uL
(0.1-0.6)
Neutrophils % 84.5 H %
(42.2-75.2)
Lymphocytes % 4.2 L %
(20.5-51.1)
Monocytes % 10.4 H %
(1.7-9.3)
ESR
D-Dimer
BUN 29 H mg/dl
(7-17)
Glucose 133 H mg/dl
(70-99)
Troponin I 0.043 H* ng/ml 0.054 H* D ng/ml
C-Reactive Protein
Procalcitonin
06/26/24 06/27/24 06/27/24
23:42 05:44 08:03
WBC 16.9 H 10^3/uL
(4.8-10.8)
RBC 3.86 L 10^6/uL
(4.20-5.40)
Hct 36.0 L %
(37.0-47.0)
MCH 31.1 H pg
(27.0-31.0)
Absolute Neuts (auto)
Absolute Lymphs (auto)
Absolute Monos (auto)
Neutrophils %
Lymphocytes %
Monocytes %
ESR 39 H mm/hour
(0-20)
D-Dimer 1.36 H ug/mlFEU
(0.00-0.50)
BUN 34 H mg/dl
(7-17)
Glucose 106 H mg/dl
(70-99)
Troponin I 0.111 H* D ng/ml 0.116 H* ng/ml
C-Reactive Protein 222.20 H mg/L
(0.0-10.00)
Procalcitonin 4.42 H* ng/ml
(0.0-0.25)
06/27/24 05:44
06/27/24 05:44
Vital Signs
Initial and Last Documented VS:
Initial Vital Signs
Pulse Resp
83 16
06/26/24 13:53 06/26/24 13:53
Last Documented Vital Signs
Temp Pulse Resp BP Pulse Ox
98 F 76 16 126/76 97
06/27/24 07:29 06/27/24 11:27 06/27/24 11:27 06/27/24 09:10 06/27/24 07:37
<Thania Frederick, DO - Last Filed: 06/26/24 19:39>
Orders/Labs/Results
Orders:
Orders
06/26/24 Breakfast
Regular
At Your Request: Limited, Jig Grinder Required
Does patient need a safe tray?: No
06/26/24 13:52
Electrocardiogram (*1) Urgent
Reason for Study: Chest Pain
Cardiac Monitoring- Treatment ONCE
EKG- Treatment ONCE
IV Insert/Care/Rem.- Treatment PRN
Interrogate Pacemaker- Treatment ONCE
O2 Therapy [RESP] Urgent
Titrate/Wean O2 to maintain O2 sat greater than (%): 90
Special Instructions: Maintain sats >/=90%
Pulse Ox/spot Check [RESP] Urgent
Quantity: 1
Special Instructions: ON ROOM AIR
06/26/24 14:09
Complete Blood Count/With Diff Urgent
Prothrombin Time Urgent
CR Chest - 2 Views Urgent
Comment:
Reason For Exam: chest wall pain
06/26/24 14:24
Ketorolac [Toradol] 15 mg IV NOW STA
06/26/24 14:56
Comprehensive Metabolic Panel Urgent
Troponin I Urgent
06/26/24 15:56
0.9% Sodium Chloride 500 ml [Nss] 500 ml IV BOLUS
06/26/24 18:00
Electrocardiogram (*1) Urgent
Reason for Study: Chest Pain
EKG- Treatment ONCE
06/26/24 18:03
Troponin I Urgent
06/26/24 19:55
Admit/Transfer Patient As Directed
Co-Sign Provider:
Level of Care: Observation services
Assign to:: IVU
Physician / Group: Eliseo
Diagnosis: Chest Pain
PRN Pain Medication Management As Directed
May give lesser potent ordered pain med per pt: Yes
preference::
Protocol:: Medication orders for pain may be administered in a
manner that supports deferring to patient preference
when the pt is:
- Requesting an ordered lesser potent pain medication.
Least to most potent pain medications are defined
as: acetaminophen < NSAID < tramadol < opioids
(morphine, oxycodone, hydromorphone).
- Requesting a lesser dose of the same medication IF
ORDERED.
- Requesting a less intrusive route of administration
if both routes are prescribed by the provider (PO <
IV).
06/26/24 19:57
Code Status As Directed
Resuscitation Status: Do not resuscitate
Reached after discussion with pt or family/Healthcare POA: Yes
Colchicine 0.6 mg PO NOW STA
06/26/24 19:58
DNR Bracelet Application ONCE
06/26/24 20:37
Ketorolac [Toradol] 10 mg IV Q6HPRN PRN
06/26/24 20:58
Acetaminophen [Tylenol] 650 mg PO Q4HPRN PRN
Albuterol Nebs [Ventolin Nebules] 2.5 mg INH R Q6HPRN PRN
Albuterol Nebs [Ventolin Nebules] 2.5 mg INH R QID
Amantadine [Symmetrel] 100 mg PO BID
Docusate Sodium [Colace] 100 mg PO BID
Tramadol HCl [Ultram] 50 mg PO Q6HPRN PRN
06/26/24 20:58
CARDIOLOGY CONSULT Routine
Consulting Provider: Raymon Rothman
Was physician already notified: Yes
Activity As Directed
Activity Level: Out of Bed-Early Mobility
With Assistance
I&O [Intake/ Output] As Directed
Frequency: q12h
Sequential Compression Device [Pneumatic Compression Sleeves] As Directed
Type: Knee high
Vital Signs As Directed
Frequency: Per unit guidelines
Weight As Directed
Frequency: Daily
DX Deep Vein Thrombosis Video Routine
DX Deep Vein Thrombosis Video Routine
06/26/24 21:00
Flush (0.9% Sodium Chloride) [Flush (Nss)] See Dose Instructions IV PER PROTOCOL
06/26/24 21:23
Pt Screening Request from [facility] Routine
06/26/24 22:00
Carbidopa/Levodopa [Sinemet 25-100] 1 tablet PO TID
Lorazepam [Ativan] 1 mg PO HS
Melatonin 3 mg PO HS
06/26/24 22:07
MRSA Screen Routine
EVELYN Source: Nose
Specimen Description:
06/26/24 23:42
Troponin I Routine
06/27/24 05:44
Basic Metabolic Panel IN AM
C-Reactive Protein Routine
Comment: ADD ON
Cardiovascular Evaluation Routine
Complete Blood Count/No Diff IN AM
Erythrocyte Sed Rate Routine
Comment: ADD ON
Glycohemoglobin (HgbA1c) Routine
Magnesium Routine
TSH Routine
Comment: ADD ON
Troponin I Q6H
06/27/24 07:33
Add On- LAB Routine
Tests Added?: ESR, CRP, TSH, Lipids, HgbA1c
06/27/24 07:37
Urinalysis Reflex To Culture Routine
Date Specimen was Collected: 06/27/24
Time Specimen was Collected: 09:30
06/27/24 07:56
COVID-19 Antigen Stat
Source: Nasal Swab
Influenza A+B Rapid Molecular Stat
EVELYN Source: Nasal Swab
Specimen Description:
06/27/24 08:00
Colchicine 0.6 mg PO DAILY
Lisinopril [Zestril] 40 mg PO DAILY
Magnesium Oxide 500 mg PO BID
Sertraline HCl [Zoloft] 50 mg PO DAILY
Verapamil Extended Release [Calan Extended Release] 180 mg PO DAILY
06/27/24 08:03
DDimer [D-Dimer] Stat
Procalcitonin Stat
PCT Algorithmm Indication: Respiratory
06/27/24 08:51
CT Chest Pe Study Urgent
Comment:
Reason For Exam: PE
0.9% Sodium Chloride 250 ml [Nss] 250 ml IV BOLUS
06/27/24 09:00
Blood Culture Q30M
EVELYN Source: Blood/Venous
Specimen Description:
06/27/24 09:30
Blood Culture Q30M
EVELYN Source: Blood/Venous
Specimen Description:
06/27/24 09:32
DX Deep Vein Thrombosis Video Routine
06/27/24 10:00
Pantoprazole [Protonix] 40 mg PO DAILY
06/27/24 12:00
Troponin I Q6H
06/27/24 16:00
Heparin 5,000 units SC Q8
06/27/24 18:00
Troponin I Q6H
06/28/24 06:00
Complete Blood Count/With Diff IN AM
Comprehensive Metabolic Panel IN AM
Abnormal Lab Results
06/26/24 06/26/24 06/26/24
14:09 14:56 18:03
WBC
RBC 4.07 L 10^6/uL
(4.20-5.40)
Hct
MCH 31.2 H pg
(27.0-31.0)
Absolute Neuts (auto) 7.7 H 10^3/uL
(1.4-6.5)
Absolute Lymphs (auto) 0.4 L 10^3/uL
(1.2-3.4)
Absolute Monos (auto) 1.0 H 10^3/uL
(0.1-0.6)
Neutrophils % 84.5 H %
(42.2-75.2)
Lymphocytes % 4.2 L %
(20.5-51.1)
Monocytes % 10.4 H %
(1.7-9.3)
ESR
D-Dimer
BUN 29 H mg/dl
(7-17)
Glucose 133 H mg/dl
(70-99)
Troponin I 0.043 H* ng/ml 0.054 H* D ng/ml
C-Reactive Protein
Procalcitonin
06/26/24 06/27/24 06/27/24
23:42 05:44 08:03
WBC 16.9 H 10^3/uL
(4.8-10.8)
RBC 3.86 L 10^6/uL
(4.20-5.40)
Hct 36.0 L %
(37.0-47.0)
MCH 31.1 H pg
(27.0-31.0)
Absolute Neuts (auto)
Absolute Lymphs (auto)
Absolute Monos (auto)
Neutrophils %
Lymphocytes %
Monocytes %
ESR 39 H mm/hour
(0-20)
D-Dimer 1.36 H ug/mlFEU
(0.00-0.50)
BUN 34 H mg/dl
(7-17)
Glucose 106 H mg/dl
(70-99)
Troponin I 0.111 H* D ng/ml 0.116 H* ng/ml
C-Reactive Protein 222.20 H mg/L
(0.0-10.00)
Procalcitonin 4.42 H* ng/ml
(0.0-0.25)
06/27/24 05:44
06/27/24 05:44
Vital Signs
Initial and Last Documented VS:
Initial Vital Signs
Pulse Resp
83 16
06/26/24 13:53 06/26/24 13:53
Last Documented Vital Signs
Temp Pulse Resp BP Pulse Ox
98 F 76 16 126/76 97
06/27/24 07:29 06/27/24 11:27 06/27/24 11:27 06/27/24 09:10 06/27/24 07:37
<Olena Gutierrez APPRENTICE - Last Filed: 06/27/24 11:44>
MDM/Problems Addressed
Differential Diagnosis Includes:
Pericarditis, Pleuritis, costochondritis
MDM/Problems Addressed:
78-year-old female with history of Parkinson's, deep brain stimulator, HTN, anxiety presents for chest pain. States yesterday she felt sudden pain across upper chest to right shoulder lasting 30 seconds, she took Tramadol with relief. Had no further
pain until this 8 am at breakfast, pain returned, was intermittent all day until it became constant at 1:15 p.m. (past hour) EMS gave her 325 ASA and NTG x 1 pt states pain went from 05/06 to 02/24. It hurts worse with deep breath. Pain is still
constant, across her upper chest and to both shoulders. Denies n/v/d/c. Denies SOB, it just hurts to breathe, denies abdominal pain.
Pt had left upper chest pacemaker inserted 06/18
Afebrile, EKG NSR rate 78
Pacemaker interrogated, Sierra from [employer] states it was also interrogated yesterday and is functioning as programmed, no arrhythmias
No redness, swelling pain at pacemaker site, no sign of infection
Pain seems more muscular or pleuritic in nature, worse with palpation/compression across chest wall, worse with deep breaths
2:30 p.m.
CBC with no clinically significant abnormality
CMP: no clinically significant abnormality.
Troponin: mildly elevated 0.043
CXR: NAD, Left cardiac conduction device with leads in the right atrium and right ventricle.
4:00 p.m.
Pt states significant relief of chest pain after Toradol
Consulted Cardiology Dr. Rothman who confirms it is not unusual after pacemaker insertion for Troponin to be elevated.
Recommends Colchecine daily, as pericarditis can be seen post pacemaker implant. give one month's worth
Pt CP resolved, no cardiac rubs, no EKG changes of pericarditis, no pericardia effusion on CXR
Agrees if Troponin #2 is not trending up, ok for DC and send to Cardiology hotline for close follow up
Interaction of Colchicine with Verapamil:
CLINICAL EFFECTS: Concurrent use of a P-gp inhibitor may result in elevated levels of and toxicity from colchicine. Symptoms of colchicine toxicity include abdominal pain; nausea or vomiting; severe diarrhea; muscle weakness or pain; numbness or
tingling in the fingers or toes; myelosuppression; feeling weak or tired; increased infections; and pale or barros color of the lips, tongue, or palms of hands.(1,2)
PREDISPOSING FACTORS: This interaction is expected to be more severe in patients with renal and/or hepatic impairment(1,2) and in patients who receive concurrent therapy.
Pt liver and kidney functions are normal.
Sent above info to Dr. Rothman. He requests Colchicine 0.6 mg daily '(half the standard dose)'
Awaiting Troponin #2
If not trending up, DC back to [facility] unit.
Spoke with son (Nurse Assessor) and daughter at bedside, updated on all, all questions answered
Rx for Colchicine sent with pt back to [place]. Daughter aware.
5:10 p.m.
Case discussed with Dr. Frederick who will assume care from this point. She will check Troponin andEKG #2
<Olena Gutierrez APPRENTICE - Last Filed: 06/27/24 11:44>
*Critical Care Note
Total Time (30-74mins, 75-104mins- exclusive of procedures): Not Applicable
ED Attending Note
<Olena Gutierrez APPRENTICE - Last Filed: 06/27/24 11:44>
-
Portions of this chart may have been created with voice recognition software.� Occasional wrong word or��sound alike� substitutions may have occurred due to the inherent limitations of voice recognition software.
<Thania Frederick DO - Last Filed: 06/26/24 19:39>
ED Attending Note
Patient seen and examined by attending physician: Yes
I performed a history and physical exam of patient and discussed management with resident, I reviewed resident's note and agree with documented findings and plan of care.: Yes
ED Attending Note:
Patient continues with intermittent mild right upper chest pain, only noted when taking a deep breath. Otherwise has been resting comfortably.
Repeat troponin has trended up slightly from 0.043-0.054.
Case discussed with Dr. Rothman. He does not feel this is CAD in nature but more consistent with post pacemaker pericarditis.
I discussed with patient and family options for discharge to home with trial of colchicine versus hospitalization for continued close observation and continue to trend troponin.
Family would feel much more comfortable with patient being admitted. Patient herself is agreeable as well.
Cardiology request patient be admitted to hospitalist service.
Discharge Plan
Departure
Patient Disposition: Admit
Date of Disposition: 06/26/24
Time of Disposition: 19:38
Admit to: Telemetry
Admit to doctor: Eliseo
Presentation/result/management discussed w/ accepting MD/DO: Hospitalist
Condition: Good
Discharge Problem:
Chest pain, borderline troponin, concern for pericarditis
Interventions
Interventions:
*Risk Screen - Suicide Last Done: 06/26/24 13:55
*General Assessment Last Done: 06/26/24 13:55
*Neglect/Abuse Screening Last Done: 06/26/24 13:55
ED- Fall Risk Assessment Last Done: 06/26/24 19:42
*ED COVID-19 Vaccine History Last Done: 06/26/24 16:06
*Nursing Disposition Last Done: 06/26/24 20:50
ED- Cardiac Assessment Last Done: 06/26/24 15:55
Discharge Date and Time
Discharge Date/Time: 06/26/24 20:50
[2024-06-26 14:22] LABS: % Basophils 0.4 % (0-2); % Eosinophils 0.1 % (0-6); % Immature Granulocytes 0.4 % (0-0.5); % Lymphocytes 4.2 % (20.5-51.1); % Monocytes 10.4 % (1.7-9.3); % Neutrophils 84.5 % (42.2-75.2); Absolute Lymphocytes 0.4 10^3/uL (1.2-3.4); Absolute Neutrophils 7.7 10^3/uL (1.4-6.5); Hematocrit 37.4 % (37.0-47.0); Hemoglobin 12.7 g/dL (12.0-16.0); Mean Corpuscular Hgb 31.2 pg (27.0-31.0); Mean Corpuscular Volume 91.9 fL (81.0-99.0); Nucleated Red Blood Cells % 0 %; Platelet Count 167 10^3/uL (130-400); Red Blood Cell Count 4.07 10^6/uL (4.20-5.40); Red Cell Dist. Width 13.2 % (11.5-14.5); White Blood Cell Count 9.1 10^3/uL (4.8-10.8)
[2024-06-26] MEDS: TORADOL 15 MG IV (14:29)
[2024-06-26 14:31] LABS: INR 0.98; PT 13.3 Sec (11.4-14.6)
[2024-06-26 15:25] LABS: ALT (SGPT) 11 U/L (0-35); AST (SGOT) 17 U/L (14-36); Albumin 4.1 g/dl (3.5-5.0); Alkaline Phosphatase 81 U/L (38-126); Blood Urea Nitrogen 29 mg/dl (7-17); Calcium 9.6 mg/dl (8.4-10.2); Carbon Dioxide 26 mmol/L (22-30); Chloride 102 mmol/L (98-107); Estimated Creatinine Clearance 36 ml/min; Glucose 133 mg/dl (70-99); Potassium 4.1 mmol/L (3.5-5.1); Sodium 139 mmol/L (135-145); Total Bilirubin 1.1 mg/dl (0.2-1.3); Total Protein 6.3 g/dl (6.3-8.2); eGFR > 60.00
[2024-06-26 15:38] LABS: Troponin I 0.043 ng/ml
[2024-06-26] MEDS: NSS 500 IV (16:02)
--- NOTE | 2024-06-26 17:27 | EDRN ---
EDT obtained repeat EKG earlier than 1800 order. V Day SKETCH ARTIST said this was fine.
[2024-06-26 18:38] LABS: Troponin I 0.054 ng/ml
--- NOTE | 2024-06-26 18:51 | EDRN ---
Dr Frederick aware of repeat troponin result and will contact cardiology
--- NOTE | 2024-06-26 19:39 | HPS.HSE ---
Family Physician
-
Family Physician: Darwin Reinoso MD
Chief Complaint
-
Chest Pain
History of Present Illness
Patient is an 78 y/o female past medical history of Hypertension, Parkinson's Disease and Heart Block s/p pacemaker on 06/18/2024 who presents with chest pain. Patient reports she had some chest pain a few days ago which resolved after she took some
Tylenol and Tramadol. Today the chest pain recurred, and was more intense. She describes the pain as something heavy sitting on her chest. She reports pain is worse when she takes a deep breath. She denies any worsening or improvement with change
in position. She denies any shortness of breath.
Medical History
Past Medical History
Past Medical History: Reports Other
Additional Past Medical History:
Essential Hypertension
Heart Block s/p Pacemaker 06/18/2024
Parkinson's Disease
Asthma
Anxiety
Past Surgical History: Reports Other
Additional Past Surgical History:
Neurostimulator
Thoracic/Lumbar Fusion
Social History
Tobacco: Non-smoker
Alcohol: None
Employment: Retired
Family History
Family History: Not pertinent
Allergies / Home Medications
Allergies reflects when Allergies were last updated in [facility].
Home Medications with original date entered in [facility]
Allergy/Medication List:
Allergies
Allergy/AdvReac Type Severity Reaction Status Date / Time
Cephalosporins Allergy Patient Verified 06/26/24 13:55
unaware of
this
allergy
hydromorphone [From Dilaudid] Allergy hallucinate Verified 06/26/24 13:55
s
penicillin G Allergy SEE BELOW Verified 06/26/24 13:55
Penicillins Allergy SEE BELOW Verified 06/26/24 13:55
Home Medications
albuterol sulfate 90 mcg/actuation aerosol inhaler (Ventolin HFA) 2 puff inhalation R Q6HPRN PRN sob 12/10/17
amantadine HCl 100 mg capsule 100 mg PO BID parkinson's disease 12/10/17
carbidopa 25 mg-levodopa 100 mg tablet 1 tab PO TID parkinson's disease 09/06/22
cholecalciferol (vitamin D3) 25 mcg (1,000 unit) tablet (Vitamin D3) 25 mcg PO DAILY Supplement 10/11/23
verapamil 180 mg tablet,extended release 180 mg PO DAILY Heart Disease/Condition 10/11/23
melatonin 3 mg tablet 3 mg PO HS 05/26/24
ondansetron HCl 4 mg tablet 4 mg PO DAILYPRN PRN nausea 05/26/24
sertraline 100 mg tablet (Zoloft) 50 mg PO DAILY depression/anxiety 05/26/24
albuterol sulfate 2.5 mg/3 mL (0.083 %) solution for nebulization 2.5 mg inhalation R Q6HPRN PRN sob 06/15/24
albuterol sulfate 2.5 mg/3 mL (0.083 %) solution for nebulization 2.5 mg inhalation R QID Lung/Breathing Issues 06/15/24
calcium 600 mg (as carbonate)-vitamin D3 10 mcg (400 unit) tablet (Calcium 600 + D(3)) 1 tab PO DAILY Supplement 06/15/24
lisinopril 20 mg tablet 40 mg PO DAILY Blood Pressure 06/15/24
lorazepam 1 mg tablet 1 mg PO HS anxiety/sleep 06/15/24
acetaminophen 325 mg tablet 650 mg (2 x 325 mg) PO Q4HPRN PRN mild pain /fever >100.4 #1 tab 06/19/24
tramadol 50 mg tablet 50 mg PO Q6HPRN PRN moderate pain #8 tabs 06/19/24
bisacodyl 10 mg rectal suppository (Dulcolax (bisacodyl)) 10 mg NE DAILYPRN PRN IF NO BM ON 3TH DAY 06/26/24
colchicine 0.6 mg tablet 0.6 mg PO DAILY #30 tabs 06/26/24
docusate sodium 100 mg capsule (Colace) 100 mg PO BID 06/26/24
magnesium hydroxide 400 mg/5 mL oral suspension (Milk of Magnesia) 2,400 mg PO HSPRN PRN IF NO BM ON 2ND DAY 06/26/24
magnesium oxide 400 mg PO BID 06/26/24
sodium phosphates 19 gram-7 gram/118 mL enema (Fleet Enema) 118 ml NE DAILYPRN PRN IF NO BM ON 4TH DAY 06/26/24
Review of Systems
-
A 12 point ROS was completed and negative except as noted: Yes
Constitutional: Denies Fever or Chills
Respiratory: Denies Cough or Trouble Breathing
Cardiac: Reports Chest Pain; Denies Palpitations
Physical Exam
Vital Signs
Vital Signs
Temp Pulse Resp BP Pulse Ox
98.5 F 83 19 120/74 99
06/26/24 13:55 06/26/24 19:00 06/26/24 19:00 06/26/24 19:00 06/26/24 14:46
Physical Exam
General: Comfortable and Conversant
HEENT: Anicteric and Moist mucous membranes
Respiratory: Clear and Non Labored Respirations
Cardiac: S1/S2, Regular Rhythm and Other (Pacemaker site appears clean without surrounding erythema; No increased chest pain during palpation)
GI: Soft and Non Tender
Rectal: Deferred by Provider
Musculoskeletal: No Clubbing, No Cyanosis and Other (Bilateral hands with ulnar deviation)
Skin: Warm and Dry
Neuro: Awake, Alert, Oriented, Nonfocal/grossly intact and Tremors
Psych: Calm
Laboratory Results
-
06/26/24 14:09
06/26/24 14:56
Laboratory Results
PT 13.3 Sec (11.4-14.6) 06/26/24 14:09
INR 0.98 06/26/24 14:09
Total Bilirubin 1.1 mg/dl (0.2-1.3) 06/26/24 14:56
AST 17 U/L (14-36) 06/26/24 14:56
ALT 11 U/L (0-35) 06/26/24 14:56
Alkaline Phosphatase 81 U/L (38-126) 06/26/24 14:56
Troponin I 0.054 ng/ml H* D 06/26/24 18:03
Data Reviewed
-
Medical Tests (Nuc Med, Echo, EKG etc): Report Reviewed by me
Lab Data: Labs Reviewed by me
Old Records: Reviewed
Impression/Plan
-
Chest Pain, suspect Pericarditis post-pacemaker placement on 06/18/2024
-Consult Cardiology
-Start colchicine as recommends by Cardiology
-Continue to trend troponin
Essential Hypertension
-Continue verapamil and lisinopril with hold parameters
Parkinson's Disease
-Continue amantadine, and Sinemet
Asthma, no acute exacerbation
-Continue albuterol neb QID and PRN
Anxiety
-Continue Zoloft, and lorazepam
DVT proph: SCDs
Code Status: DNR/DNI
[2024-06-26] MEDS: COLCHICINE 0.6 MG PO (20:15)
--- NOTE | 2024-06-26 20:33 | W.PN.UPDATE ---
Update Note
Progress Note Update
Patient seen in conjunction with [facility]. I agree with the findings on history and physical and concur with assessment plan unless otherwise stated.
Patient is a 78-year-old female with past medical history of Parkinson's disease status post stimulator device, MR with MitraClip, second-degree AV block status post pacemaker placement in June. Presented to the emergency department with chest
pain.
Patient reports acute episode of chest pain that is localized to the upper chest right below the clavicle spine radiates right across the chest. Denies any radiation to the neck jaws back or arms. She reports that pain is worse with inspiration or
laying down. Also she reports mild shortness of breath. She denies any nausea vomiting or diaphoresis. She denies any palpitations lightheadedness or dizziness. She has no cough, denies fevers or chills.
In the emergency department the patient was afebrile blood pressure was 120/74 with pulse of 83. ECG shows AV paced rhythm at [address] or T wave changes. Chest x-ray shows no infiltrates or pneumothorax or effusion. Initial
troponin was 0.043 with a change to 0.054. CBC was unremarkable. Likewise the electrolytes BUN/creatinine were also within normal limits.
On exam her lungs were clear, chest pain was not reproducible with palpation, cardiac auscultation shows a regular rhythm, normal S1 and S2 without any murmurs. There is no edema. PPM site is completely healed and shows no swelling, redness or
tenderness.
Assessment and plan
Pericarditis - Case discussed with [facility] [employer]. Symptoms and history c/w PPM pericarditis that can occur 1 - 6 wks post pacemaker placement.
- admit to telemetry observation
- trend troponins
- start colchicine
- prn toradol and tramadol
- cardiology to see in am
Rest of plan as per [facility] note
DVT PPX - scd
Code status - DNR
--- NOTE | 2024-06-26 20:38 | EDRN ---
Verbal report to Venus in [facility]
[2024-06-26] MEDS: TORADOL 10 MG IV (20:43)
[2024-06-26] MEDS: COLACE 100 MG PO (21:49)
[2024-06-26] MEDS: SINEMET 25-100 1 TABLET PO (21:50)
[2024-06-26] MEDS: MELATONIN 3 MG PO (21:51)
[2024-06-26] MEDS: ATIVAN 1 MG PO (21:51)
[2024-06-26] MEDS: SYMMETREL 100 MG PO (21:51)
--- NOTE | 2024-06-26 22:51 | PTCARENOTE ---
Received patient from ED. SR on the monitor, HR in the 80s. VSS. Pt awake and oriented x3 but confused. Oriented pt to room and call ryan. Bed alarm on due to pts confusion and high fall risk. DNR and high fall risk bracelets on. No complaints from
pt at this time. Call ryan within reach.
[2024-06-27 00:16] LABS: Troponin I 0.111 ng/ml
[2024-06-27] MEDS: VENTOLIN NEBULES INH (00:29)
[2024-06-27 05:46] VITALS: BP 130/77
[2024-06-27 06:00] VITALS: BMI 19.9
[2024-06-27 06:05] LABS: Mean Corp Hgb Conc. 33.3 g/dL (33.0-37.0); Mean Corpuscular Hgb 31.1 pg (27.0-31.0); Mean Corpuscular Volume 93.3 fL (81.0-99.0); Mean Platelet Volume 9.4 fL (7.4-10.4); Platelet Count 166 10^3/uL (130-400); Red Blood Cell Count 3.86 10^6/uL (4.20-5.40); Red Cell Dist. Width 13.5 % (11.5-14.5); White Blood Cell Count 16.9 10^3/uL (4.8-10.8)
[2024-06-27 06:20] LABS: Troponin I 0.116 ng/ml
[2024-06-27 06:23] LABS: Blood Urea Nitrogen 34 mg/dl (7-17); Calcium 9.5 mg/dl (8.4-10.2); Carbon Dioxide 27 mmol/L (22-30); Chloride 103 mmol/L (98-107); Estimated Creatinine Clearance 32 ml/min; Glucose 106 mg/dl (70-99); Potassium 4.5 mmol/L (3.5-5.1); Sodium 140 mmol/L (135-145); eGFR 56.95
[2024-06-27] MEDS: VENTOLIN NEBULES 2.5 MG INH ×4 (07:31→20:32)
[2024-06-27 07:32] VITALS: BP 126/67
[2024-06-27 08:28] LABS: D-Dimer 1.36 ug/mlFEU (0.00-0.50)
[2024-06-27 08:35] LABS: HDL Cholesterol 73 mg/dl; LDL Cholesterol, Calculated 43 mg/dl; Total Cholesterol 127 mg/dl (50-199); Triglyceride 57 mg/dl (10-149); Very Low Density Lipoprotein 11 mg/dl (0-30)
[2024-06-27 08:41] LABS: Erythrocyte Sed Rate 39 mm/hour (0-20)
[2024-06-27 08:48] LABS: COVID-19 Antigen Negative (Negative)
[2024-06-27 08:49] LABS: Procalcitonin 4.42 ng/ml (0.0-0.25)
[2024-06-27] MEDS: NSS 250 IV (09:06)
[2024-06-27] MEDS: SYMMETREL 100 MG PO ×2 (09:10→20:28)
[2024-06-27] MEDS: SINEMET 25-100 1 TABLET PO ×3 (09:10→22:14)
[2024-06-27] MEDS: ZESTRIL 40 MG PO (09:10)
[2024-06-27] MEDS: MAGNESIUM OXIDE 500 MG PO ×2 (09:10→20:27)
[2024-06-27] MEDS: ZOLOFT 50 MG PO (09:10)
[2024-06-27] MEDS: COLACE 100 MG PO ×2 (09:10→20:27)
[2024-06-27] MEDS: CALAN EXTENDED RELEASE 180 MG PO (09:10)
[2024-06-27] MEDS: COLCHICINE 0.6 MG PO (09:20)
[2024-06-27 09:25] LABS: Glycohemoglobin (HgbA1c) 5.5 % (4.0-5.6)
--- NOTE | 2024-06-27 09:33 | W.PN.HOSP.TC ---
Today's Communication/Plan
-
see PN
Assessment / Plan
Assessment / Plan
78yo F with PMHx of HTN, Parkinsons s/p brain stim, AVB s/p PPM on 06/18/24, severe MR came with couple of days of dull pain across the chest on inspiration. Managed for post-PPM pericarditis. FOund new onset Afib
A/P:
#Acute pericarditis
#Non-ischemic myocardial injury
#NEw onset Afib
#Severe MR
folow trops
Colchicine and Toradol
Cardiology follows: plan for anticoagulation after Echo
Telemetry
follow serial ESR/CRP weekly
COVID-19 and influenza PCR neg
#Elevated procalcitonin with chest pain
#Elevated ddimer
#Leukocytosis
Apparently no steroids given in ED
CTA chest to r/o PE and pneumonia, however XR without overt consolidation
Bcx
Follow CBC
Site of PPM implantation not painful and without redness
Check UA
#Essential HTN
#Parkinsons
#GERD
cont home meds
DVT ppx hep
GI ppx PPI (toradol and heparin)
DNR/DNI
I have spent at least 58min reviewing chart, test results, communication with consultants and direct patient care
Anticipated Discharge: > 48 hours
Subjective/Interval History
-
Date of Service: June 27, 2024
Objective Data
-
Labs:
Laboratory Results
06/27/24
05:44
WBC 16.9 H
Hgb 12.0
Hct 36.0 L
Plt Count 166
Sodium 140
Potassium 4.5
Chloride 103
Carbon Dioxide 27
BUN 34 H
Creatinine 1.0
Glucose 106 H
Calcium 9.5
Vital Signs:
Vital Signs
Temp Pulse Resp BP Pulse Ox
98 F 73 16 126/76 97
06/27/24 07:29 06/27/24 09:10 06/27/24 07:37 06/27/24 09:10 06/27/24 07:37
Review of Systems
-
History Source: Patient
All other systems: Reviewed and negative
Cardiac: Reports Chest Pain
Physical Exam
-
General: No Apparent Distress
HEENT: Normocephalic and Atraumatic
Respiratory: Clear to Auscultation
Cardiac: Irregular Rhythm
GI: Soft, Nontender and Nondistended
Musculoskeletal: No Clubbing, No Cyanosis and No Edema
Neuro: Awake, Alert, Oriented and AO x 3
Psych: Calm
[2024-06-27 09:51] LABS: TSH 1.26 uIU/ml (0.47-4.68)
--- NOTE | 2024-06-27 10:20 | W.PN.CD ---
Addendum entered and electronically signed by Raymon Rothman MD 06/27/24 10:59:
Eliquis started. CT w/o any significant pericardial effusion.
Echo tomorrow
Original Note:
Today's Communication / Plan
-
Consult dictated
6-12 weeks of dose reduced colchicine (interaction with verapamil)
Start Eliquis if no significant pericardial effusion note on CT chest just obtained
Given need for Eliquis will try and avoid NSAIDS typically use for 2 weeks in pericarditis
Echo tomorrow
If AFib persists in 4-8 weeks will proceed to cardioversion
Impression / Plan
-
New pericarditis after pacemaker on 06/18/2024
- Plan 6-12 weeks of dose reduced colchicine (interaction with verapamil)
- Given need for Eliquis will try and avoid NSAIDS typically use for 2 weeks in pericarditis
- Echo tomorrow
- Pacing leads were working well on check yesterday
Elevated troponin
- Nonischemic myocardial injury related to pericarditis
New AFib, started here in the hospital
- [id number] at least 5 (HF related to severe MR, HTN, age2, female)
- Rate well controlled, conduction disease and verapamil
- Will add Eliquis if no significant effusion noted on the CT
- If AFib persists in 4-8 weeks will proceed to cardioversion
Conduction system disease
- 2:1 Heart block - Mobitz II, new.
- s/p DC Medtronic PPM 06/18/2024
Severe mitral regurgitation
- MitraClip with Dr. Ignacio will likely need to be pushed back to allow resolution of pericarditis
HTN, regimen in past Lisinopril 40mg daily/Verapamil ER 180mg daily. HCTZ 12.5 mg had been stopped for PATRICIA and hypokalemia.
- monitor.
Parkinson's disease, stable on meds, brain stimulator, right side chest.
Son (rehab med physician, Chester Zacarias MD, ) updated by me about all of the above
Subjective:
No chest pain
Physical Exam
Vital Signs/Labs
Vital Signs
Temp Pulse Resp BP Pulse Ox
98 F 73 16 126/76 97
06/27/24 07:29 06/27/24 09:10 06/27/24 07:37 06/27/24 09:10 06/27/24 07:37
06/26/24 06/27/24 06/28/24
06:59 06:59 06:59
Actual Weight 46.7 kg
06/27/24 05:44
06/27/24 05:44
PT 13.3 Sec (11.4-14.6) 06/26/24 14:09
INR 0.98 06/26/24 14:09
Triglycerides 57 mg/dl (10-149) 06/27/24 05:44
LDL Cholesterol, Calc 43 mg/dl 06/27/24 05:44
VLDL Cholesterol, Calc 11 mg/dl (0-30) 06/27/24 05:44
HDL Cholesterol 73 mg/dl 06/27/24 05:44
TSH 1.26 uIU/ml (0.47-4.68) 06/27/24 05:44
LAB Results
06/26/24 06/26/24 06/26/24
14:09 14:56 18:03
Troponin I Cancelled 0.043 H* 0.054 H* D
06/26/24 06/27/24
23:42 05:44
Troponin I 0.111 H* D 0.116 H*
Data Reviewed
-
Date of Service: June 27, 2024
[2024-06-27] MEDS: ELIQUIS 2.5 MG PO ×2 (11:48→20:27)
[2024-06-27] MEDS: PROTONIX 40 MG PO (11:48)
[2024-06-27 11:55] VITALS: BP 92/55
[2024-06-27 12:10] LABS: Urine Albumin Trace (Neg - Trace); Urine Bilirubin 1+ (Negative); Urine Character Slightly Cloudy (Clear); Urine Color Amber; Urine Glucose Negative (Negative); Urine Ketone Trace (Negative); Urine Leukocyte 1+ (Negative); Urine Nitrite Negative (Negative); Urine Occult Blood Negative (Negative); Urine Specific Gravity 1.025 (<1.030); Urine Urobilinogen Negative (Neg - 1+)
[2024-06-27 12:32] LABS: Urine Hyaline Cast >15 /LPF (0-2); Urine Mucus Moderate; Urine Squamous Cell >30 /LPF (Few)
[2024-06-27 12:33] LABS: Urine Bacteria Moderate (Negative)
[2024-06-27 13:58] LABS: Troponin I 0.104 ng/ml
[2024-06-27] MEDS: MERREM 500 MG IV ×2 (14:21→22:14)
[2024-06-27] MEDS: STERILE WATER FOR INJECTION 10 ML IV ×2 (14:21→22:14)
[2024-06-27 15:27] VITALS: BP 103/58
--- NOTE | 2024-06-27 17:12 | PTCARENOTE ---
pt is afib on the monitor, dr. Rothman aware. pt hr in the 80s, vss. pt offers no complaints at this time. pt denies cp/sob. pts visiting w/ daughter at bedside. both pt and daughter educated on plan of care and both verbalized understanding. bed
alarm in place. call ryan within reach.
[2024-06-27 18:19] VITALS: BP 103/62
[2024-06-27] MEDS: TORADOL 10 MG IV (20:28)
[2024-06-27 22:12] VITALS: BP 117/58
[2024-06-27] MEDS: ATIVAN 1 MG PO (22:14)
[2024-06-27] MEDS: MELATONIN 3 MG PO (22:14)
--- NOTE | 2024-06-27 23:00 | PTCARENOTE ---
Pt received at change of shift, AAOx3 but forgetful and confused at times. VSS, Afib on tele with HR 70s. Pt with complaints of 8/10 CP/pressure when she takes a deep breath and appears to be SOB. Neb treatment given by respiratory, EKG obtained
and Toradol administered for pain as ordered, see MAR. Pt reports relief of pain following interventions. Landon Burkett, ARABELLA notified, no new orders at this time. Bed alarm in place for pt safety. Call ryan within reach.
[2024-06-28] VITALS (8 sets, daily range): BP systolic 118–164; BP diastolic 65–102; BMI 19.8
[2024-06-28] MEDS: STERILE WATER FOR INJECTION 10 ML IV ×3 (05:56→21:35)
[2024-06-28] MEDS: MERREM 500 MG IV ×3 (05:56→21:36)
[2024-06-28 06:17] LABS: % Basophils 0.2 % (0-2); % Eosinophils 0.5 % (0-6); % Immature Granulocytes 0.5 % (0-0.5); % Lymphocytes 8.5 % (20.5-51.1); % Monocytes 7.5 % (1.7-9.3); % Neutrophils 82.8 % (42.2-75.2); Absolute Lymphocytes 0.7 10^3/uL (1.2-3.4); Absolute Monocytes 0.6 10^3/uL (0.1-0.6); Absolute Neutrophils 6.8 10^3/uL (1.4-6.5); Hematocrit 33.1 % (37.0-47.0); Mean Corp Hgb Conc. 33.2 g/dL (33.0-37.0); Mean Corpuscular Hgb 30.8 pg (27.0-31.0); Mean Corpuscular Volume 92.7 fL (81.0-99.0); Mean Platelet Volume 9.3 fL (7.4-10.4); Nucleated Red Blood Cells % 0 %; Platelet Count 183 10^3/uL (130-400); Red Blood Cell Count 3.57 10^6/uL (4.20-5.40); Red Cell Dist. Width 13.8 % (11.5-14.5); White Blood Cell Count 8.2 10^3/uL (4.8-10.8)
[2024-06-28 06:56] LABS: ALT (SGPT) 10 U/L (0-35); AST (SGOT) 16 U/L (14-36); Albumin 3.3 g/dl (3.5-5.0); Alkaline Phosphatase 74 U/L (38-126); Blood Urea Nitrogen 43 mg/dl (7-17); Carbon Dioxide 29 mmol/L (22-30); Chloride 102 mmol/L (98-107); Estimated Creatinine Clearance 27 ml/min; Glucose 90 mg/dl (70-99); Magnesium 2.5 mg/dl (1.6-2.3); Sodium 140 mmol/L (135-145); Total Bilirubin 0.5 mg/dl (0.2-1.3); Total Protein 5.6 g/dl (6.3-8.2); eGFR 45.76
[2024-06-28] MEDS: VENTOLIN NEBULES 2.5 MG INH ×4 (07:20→19:29)
--- NOTE | 2024-06-28 08:15 | W.PN.CD ---
Today's Communication / Plan
-
ambulate
echo
Impression / Plan
-
New pericarditis after pacemaker on 06/18/2024
- Plan 6-12 weeks of dose reduced colchicine (interaction with verapamil)
- Given need for Eliquis will try and avoid NSAIDS typically use for 2 weeks in pericarditis- NO CHEST PAIN TODAY
- Echo today
- Pacing leads were working well on check yesterday
Elevated troponin
- Nonischemic myocardial injury related to pericarditis
New AFib, started here in the hospital
- [id number] at least 5 (HF related to severe MR, HTN, age2, female)
- On Eliquis (proper dose is 2.5 bid age 78, wt<60kg)
- Back in NSR
Conduction system disease
- 2:1 Heart block - Mobitz II, new.
- s/p DC Medtronic PPM 06/18/2024
Severe mitral regurgitation
- MitraClip with Dr. Ignacio tentatively next week
HTN, regimen in past Lisinopril 40mg daily/Verapamil ER 180mg daily. HCTZ 12.5 mg had been stopped for PATRICIA and hypokalemia.
- monitor.
Parkinson's disease, stable on meds, brain stimulator, right side chest.
Son (rehab med physician, Chester Zacarias MD, )
Subjective:
No chest pain
Physical Exam
Vital Signs/Labs
Vital Signs
Temp Pulse Resp BP Pulse Ox
97.7 F 68 16 117/58 94
06/28/24 05:55 06/28/24 07:21 06/28/24 07:21 06/27/24 22:12 06/28/24 07:21
06/27/24 06/28/24 06/29/24
06:59 06:59 06:59
Actual Weight 101 lb 13.657 oz
06/28/24 05:53
06/28/24 05:53
PT 13.3 Sec (11.4-14.6) 06/26/24 14:09
INR 0.98 06/26/24 14:09
Magnesium 2.5 mg/dl (1.6-2.3) H 06/28/24 05:53
Triglycerides 57 mg/dl (10-149) 06/27/24 05:44
LDL Cholesterol, Calc 43 mg/dl 06/27/24 05:44
VLDL Cholesterol, Calc 11 mg/dl (0-30) 06/27/24 05:44
HDL Cholesterol 73 mg/dl 06/27/24 05:44
TSH 1.26 uIU/ml (0.47-4.68) 06/27/24 05:44
LAB Results
06/26/24 06/26/24 06/26/24
14:09 14:56 18:03
Troponin I Cancelled 0.043 H* 0.054 H* D
06/26/24 06/27/24 06/27/24
23:42 05:44 13:21
Troponin I 0.111 H* D 0.116 H* 0.104 H*
06/27/24
18:00
Troponin I Cancelled
Physical Exam
Constitutional: No acute distress and Comfortable
EENT: Anicteric
Cardiovascular: Rhythm & rate is regular, S1S2 is normal and Murmur/rub/gallop absent
Respiratory: Respiratory effort normal and Lungs clear to auscul.
GI: Soft, Non tender and Normal bowel sounds
Neuro/Psych: AO x 3 and Motor deficits absent
Data Reviewed
-
Date of Service: June 28, 2024
--- NOTE | 2024-06-28 08:32 | PTCARENOTE ---
Pt oob w/ 2 person assist and rolling walker. Pt strong on her feet, just very tremulous. Pt able to reposition herself in the chair. Discontinued Q2H turning schedule. Chair alarm on. Will monitor.
[2024-06-28] MEDS: MAGNESIUM OXIDE 500 MG PO ×2 (10:07→20:39)
[2024-06-28] MEDS: SYMMETREL 100 MG PO ×2 (10:07→20:39)
[2024-06-28] MEDS: CALAN EXTENDED RELEASE 180 MG PO (10:07)
[2024-06-28] MEDS: SINEMET 25-100 1 TABLET PO ×3 (10:07→21:36)
[2024-06-28] MEDS: ZOLOFT 50 MG PO (10:07)
[2024-06-28] MEDS: COLACE 100 MG PO ×2 (10:08→20:39)
[2024-06-28] MEDS: ELIQUIS 2.5 MG PO ×2 (10:08→20:39)
[2024-06-28] MEDS: PROTONIX 40 MG PO (10:08)
[2024-06-28] MEDS: COLCHICINE 0.6 MG PO (10:08)
[2024-06-28] MEDS: ZESTRIL 40 MG PO (10:08)
--- NOTE | 2024-06-28 12:43 | W.PN.HOSP.TC ---
Today's Communication/Plan
-
Pending Ucx, cont merrem
Follow Cr with mild hydration
discussed in details with daughter bedside and son over the phone
Assessment / Plan
Assessment / Plan
78yo F with PMHx of HTN, Parkinsons s/p brain stim, AVB s/p PPM on 06/18/24, severe MR came with couple of days of dull pain across the chest on inspiration. Managed for post-PPM pericarditis. Found new onset Afib
A/P:
#Acute pericarditis
#Non-ischemic myocardial injury
#New onset Afib
#Severe MR
folow trops
Colchicine and Toradol
Cardiology follows: started low dose Colchicine and Eliquis. If will persist for 2-4 mo - will need further mgmt as outpatient for possible ablation
Telemetry
follow serial ESR/CRP weekly
COVID-19 and influenza PCR neg
#Elevated procalcitonin with chest pain
#Elevated ddimer
Apparently no steroids given in ED
CTA chest neg for PE
Bcx
Follow CBC
Site of PPM implantation not painful and without redness
No pneumonia on CT
Check US LE
#UTI
due to cephalosporin allergy - merrem, pending Ucx
#Elevated Cr
baseline 1.0, now 1.2
hydrate and follow
serial bladder scans
#Essential HTN
#Parkinson
#GERD
cont home meds
DVT ppx hep
GI ppx PPI (toradol and heparin)
DNR/DNI
I have spent at least 58min reviewing chart, test results, communication with consultants and direct patient care
Anticipated Discharge: 24 - 48 hours
Subjective/Interval History
-
Date of Service: June 28, 2024
Objective Data
-
Labs:
Laboratory Results
06/28/24
05:53
WBC 8.2
Hgb 11.0 L
Hct 33.1 L
Plt Count 183
Sodium 140
Potassium 4.0
Chloride 102
Carbon Dioxide 29
BUN 43 H
Creatinine 1.2 H
Glucose 90
Calcium 9.0
Total Bilirubin 0.5
AST 16
ALT 10
Alkaline Phosphatase 74
Vital Signs:
Vital Signs
Temp Pulse Resp BP Pulse Ox
97.8 F 72 16 126/80 96
06/28/24 08:28 06/28/24 11:27 06/28/24 11:27 06/28/24 10:07 06/28/24 08:28
I&O
06/27/24 06/28/24 06/29/24
06:59 06:59 06:59
Intake Total 1210 / 1210
Balance 1210 / 1210
Review of Systems
-
History Source: Patient
All other systems: Reviewed and negative
Physical Exam
-
General: No Apparent Distress
Respiratory: Clear to Auscultation
Cardiac: Regular Rhythm
GI: Soft, Nontender and Nondistended
Skin: Warm
Neuro: Awake, Alert, Oriented and AO x 3
[2024-06-28] MEDS: NSS 250 IV (13:42)
--- NOTE | 2024-06-28 14:25 | CM ---
Addendum entered by Ayah Martines 06/28/24 14:35:
Telephone call to [facility] to check on co-pay for Eliquis 5 mg po bid. Her co-pay would be $131.00 a month. She is in the coverage gap. Placed the one month free coupon in her red discharge folder.
Original Note:
Reviewed chart, Met with Mrs. Zacarias and her daughter to review discharge plans. She states prior to admission she was at [facility] for SNF/Rehab. She states she moved in November to [facility] personal Care. She states
prior to admission she is wheelchair level for ambulation. Daughter states she would like her to return to [facility] SNF/Rehab. Telephone call to [facility] Liaison to check on bed availability. Will send referral once
physical and occupational evaluations are complete. [facility] states they will have a bed available tomorrow if needed. Reviewed transportation with them. Daughter states she can transport her if when can use a wheelchair here to
bring her to her care and [facility] has a wheelchair to use there when she gets there. Spoke with [facility] and they can have a wheelchair there. Medical work-up in progress. The discharge plan is to return to [facility] when medically stable.
[2024-06-28] MEDS: ULTRAM 50 MG PO (17:08)
[2024-06-28] MEDS: MELATONIN 3 MG PO (21:36)
[2024-06-28] MEDS: ATIVAN 1 MG PO (21:36)
[2024-06-29] VITALS (14 sets, daily range): BP systolic 65–164; BP diastolic 54–107; PULSE 80–84; O2SAT 96; BMI 20.1
--- NOTE | 2024-06-29 02:30 | PTCARENOTE ---
Pt received at change of shift. SR on tele with occasional Vpacing. HR 70s-80s. No complaints of CP. Pt AAOx3 but forgetful at times. Bed alarm activated for pt safety. Pt to commode with X1 assist, unsteady on feet due to tremors. Call ryan
within reach.
[2024-06-29 04:52] LABS: Blood Urea Nitrogen 33 mg/dl (7-17); Calcium 8.2 mg/dl (8.4-10.2); Carbon Dioxide 24 mmol/L (22-30); Chloride 106 mmol/L (98-107); Estimated Creatinine Clearance 36 ml/min; Glucose 98 mg/dl (70-99); Potassium 4.1 mmol/L (3.5-5.1); Sodium 144 mmol/L (135-145); eGFR > 60.00
[2024-06-29] MEDS: MERREM 500 MG IV (05:53)
[2024-06-29] MEDS: STERILE WATER FOR INJECTION 10 ML IV (05:53)
[2024-06-29] MEDS: VENTOLIN NEBULES 2.5 MG INH ×2 (07:45→11:30)
[2024-06-29] MEDS: PROTONIX 40 MG PO (07:48)
[2024-06-29] MEDS: MAGNESIUM OXIDE 500 MG PO (07:48)
[2024-06-29] MEDS: SYMMETREL 100 MG PO (07:48)
[2024-06-29] MEDS: COLACE 100 MG PO (07:49)
[2024-06-29] MEDS: CALAN EXTENDED RELEASE 180 MG PO (07:49)
[2024-06-29] MEDS: COLCHICINE 0.6 MG PO (07:49)
[2024-06-29] MEDS: ZOLOFT 50 MG PO (07:49)
[2024-06-29] MEDS: SINEMET 25-100 1 TABLET PO (07:49)
[2024-06-29] MEDS: ZESTRIL 40 MG PO (07:49)
[2024-06-29] MEDS: ELIQUIS 2.5 MG PO (07:49)
--- NOTE | 2024-06-29 07:53 | PTCARENOTE ---
Assumed care. Patient forgetful to place, easily re-orients, tremors, slightly slurred speech. NSR, BP 164/94. Denies pain or shortness of breath Incontinent of urine. care provided. Bed alarm audible, call ryan in reach
--- NOTE | 2024-06-29 10:03 | W.PN.HOSP.TC ---
Today's Communication/Plan
-
Cipro
Pending final cardio recommendations
Assessment / Plan
Assessment / Plan
78yo F with PMHx of HTN, Parkinsons s/p brain stim, AVB s/p PPM on 06/18/24, severe MR came with couple of days of dull pain across the chest on inspiration. Managed for post-PPM pericarditis. Found new onset Afib. Echo showed no pericardial
effusion and no MR. Started on Eliquis by cardiology. Concern for UTI, however since Cx neg - reasonable to treat as a simple cystitis. Will be medically appropriate for d/c back to facility when agreed with cardiology
A/P:
#Acute pericarditis
#Non-ischemic myocardial injury
#New onset Afib
#Severe MR
folow trops
Colchicine and Toradol
Cardiology follows: started low dose Colchicine and Eliquis. If will persist for 2-4 mo - will need further mgmt as outpatient for possible ablation
Telemetry
follow serial ESR/CRP weekly
COVID-19 and influenza PCR neg
Echo with same severe MR and no pericardial effusion
#Elevated procalcitonin with chest pain, can be 2/2 endocarditis
#Elevated ddimer
Apparently no steroids given in ED
CTA chest neg for PE
Bcx NTD
Follow CBC
Site of PPM implantation not painful and without redness
No pneumonia on CT
LE US neg for DVT
#UTI
Ucx neg - reasonable to treat as simple cystitis with 3 days cipro
#Elevated Cr
baseline 1.0, now 1.2
hydrate and follow
serial bladder scans
#Essential HTN
#Parkinson
#GERD
cont home meds
DVT ppx hep
GI ppx PPI (toradol and heparin)
DNR/DNI
I have spent at least 38min reviewing chart, test results, communication with consultants and direct patient care
Anticipated Discharge: Within 24 hours
Subjective/Interval History
-
Date of Service: June 29, 2024
Objective Data
-
Labs:
Laboratory Results
06/29/24
03:39
Sodium 144
Potassium 4.1
Chloride 106
Carbon Dioxide 24
BUN 33 H
Creatinine 0.9
Glucose 98
Calcium 8.2 L
Vital Signs:
Vital Signs
Temp Pulse Resp BP Pulse Ox
98.2 F 82 16 162/94 96
06/29/24 07:44 06/29/24 07:47 06/29/24 07:47 06/29/24 07:43 06/29/24 07:47
I&O
06/28/24 06/29/24 06/30/24
06:59 06:59 06:59
Intake Total 1210 / 1210 730 / 730
Output Total 225 / 225
Balance 1210 / 1210 505 / 505
Review of Systems
-
History Source: Patient
All other systems: Reviewed and negative
Physical Exam
-
General: No Apparent Distress
HEENT: Normocephalic
Respiratory: Clear to Auscultation
Cardiac: Regular Rhythm
GI: Soft, Nontender and Nondistended
Skin: Warm
Neuro: Awake, Alert, Oriented and AO x 3
Psych: Calm
--- NOTE | 2024-06-29 10:49 | W.PN.UPDATE ---
Update Note
Progress Note Update
I spoke with Ms. Zacarias's son Chester Zacarias about procedural planning in the setting of her recent hospitalizations for bradycardia and PPM placement and now pericarditis complicated by Afib. Chester feels that Ms. Zacarias has been declining from a
global and cognitive standpoint over the past several months. He is concerned about her ability to tolerate another procedure at this time, and would like to delay MitraClip and reconsider after the holidays. There is also concern about proceeding
from a procedural standpoint, in the setting of her pericardial inflammation which may increase risks for perforation. Based on our discussion, I think it is reasonable to delay MitraClip at this time, with plan to re-evaluate her candidacy after
the holiday break and move forward at that time if appropriate. I shared my conversation with Chester with Ms. Zacarias. She expressed understanding and agreement with the plan to delay MitraClip at this time.
--- NOTE | 2024-06-29 11:21 | W.PN.CD ---
Today's Communication / Plan
-
From EP perspective good for home:
- 6 weeks of low dose colchicine then stop
- Up to 3 months of Eliquis 2.5 bid (age/weight) if well tolerated
- Device will alert us (once pt receives/activates the home device that will be sent to her) for AFib more than [address] Laughlin's comments about MitraClip:
'I spoke with Ms. Zacarias's son Chester Zacarias about procedural planning in the setting of her recent hospitalizations for bradycardia and PPM placement and now pericarditis complicated by Afib. Chester feels that Ms. Zacarias has been declining from a
global and cognitive standpoint over the past several months. He is concerned about her ability to tolerate another procedure at this time, and would like to delay MitraClip and reconsider after the holidays. There is also concern about proceeding
from a procedural standpoint, in the setting of her pericardial inflammation which may increase risks for perforation. Based on our discussion, I think it is reasonable to delay MitraClip at this time, with plan to re-evaluate her candidacy after
the holiday break and move forward at that time if appropriate. I shared my conversation with Chester with Ms. Zacarias. She expressed understanding and agreement with the plan to delay MitraClip at this time.'
Ok for home.
Impression / Plan
-
New pericarditis after pacemaker on 06/18/2024
- Plan 6 weeks of dose reduced colchicine (interaction with verapamil)
- Given need for Eliquis will try and avoid NSAIDS typically use for 2 weeks in pericarditis
- No CP since the pain she had the day of admit
- Echo yesterday: no effusion, severe MR, LVEF normal
- Pacing leads were working well on check yesterday
Elevated troponin from onischemic myocardial injury related to pericarditis
New AFib, started here in the hospital
- Just over 23 hours but less than 24 hours seen first 1-2 days of this admit
- [id number] at least 5 (HF related to severe MR, HTN, age1, female)
- On Eliquis (proper dose is 2.5 bid age 78, wt<60kg)
- Back in NSR
- As this is precipitated by pacer implant/pericarditis plan only up to 3 months of Eliquis and device will alert us to amount/burden of future AFib
Conduction system disease
- Paroxysmal 2:1 Heart block - Mobitz II, new.
- s/p DC Medtronic PPM 06/18/2024 => normal function
Severe mitral regurgitation
- MitraClip with Dr. Ignacio will be reevaluated in the office
HTN, regimen in past Lisinopril 40mg daily/Verapamil ER 180mg daily. HCTZ 12.5 mg had been stopped for PATRICIA and hypokalemia.
- monitor.
Parkinson's disease, stable on meds, brain stimulator, right side chest.
Son (rehab med physician, Chester Zacarias MD, )
Subjective:
No chest pain
Physical Exam
Vital Signs/Labs
Vital Signs
Temp Pulse Resp BP Pulse Ox
98.2 F 82 16 162/94 96
06/29/24 07:44 06/29/24 07:47 06/29/24 07:47 06/29/24 07:43 06/29/24 07:47
06/28/24 06/29/24 06/30/24
06:59 06:59 06:59
Actual Weight 46.1 kg 46.6 kg
06/28/24 05:53
06/29/24 03:39
PT 13.3 Sec (11.4-14.6) 06/26/24 14:09
INR 0.98 06/26/24 14:09
Magnesium 2.5 mg/dl (1.6-2.3) H 06/28/24 05:53
Triglycerides 57 mg/dl (10-149) 06/27/24 05:44
LDL Cholesterol, Calc 43 mg/dl 06/27/24 05:44
VLDL Cholesterol, Calc 11 mg/dl (0-30) 06/27/24 05:44
HDL Cholesterol 73 mg/dl 06/27/24 05:44
TSH 1.26 uIU/ml (0.47-4.68) 06/27/24 05:44
LAB Results
06/26/24 06/26/24 06/26/24
14:09 14:56 18:03
Troponin I Cancelled 0.043 H* 0.054 H* D
06/26/24 06/27/24 06/27/24
23:42 05:44 13:21
Troponin I 0.111 H* D 0.116 H* 0.104 H*
06/27/24
18:00
Troponin I Cancelled
Physical Exam
Constitutional: No acute distress
EENT: Anicteric
Cardiovascular: Rhythm & rate is regular, Pedal edema is absent and Systolic murmur present
Respiratory: Respiratory effort normal and Lungs clear to auscul.
Neuro/Psych: AO x 3 and Tremors
Other: Cardiac Device Site (normal)
Data Reviewed
-
Date of Service: June 29, 2024
[2024-06-29] MEDS: CIPRO 250 MG PO (11:44)
--- NOTE | 2024-06-29 13:16 | PTCARENOTE ---
Report called to Leah CONTRERAS at [facility]. IV and tele removed
--- NOTE | 2024-06-29 13:24 | W.DCSUMMARY ---
Discharge Summary
Discharge Data
Date of Admission: 06/27/24
Date of Discharge: 06/29/24
-
Pending Results: No
Hospital Course
78yo F with PMHx of HTN, Parkinson s/p brain stim, AVB s/p PPM on 06/18/24, severe MR came with couple of days of dull pain across the chest on inspiration. Managed for post-PPM pericarditis. Found new onset Afib. Echo showed no pericardial effusion
and no MR. Started on Eliquis by cardiology. Concern for UTI, however since Cx neg - reasonable to treat as a simple cystitis. Will be medically appropriate for d/c back to facility as agreed with cardiology, plan for 6 weeks of reduced dose
colchicine and at least 3mo Eliquis - depending on Afib recurrence. Medically stable for d/c. MitraClip would be delayed with increased risk of perf, as per cardiology
I have spent at least 38min preparing d/c
Patient was managed for:
#Acute pericarditis
#Non-ischemic myocardial injury
#New onset Afib
#Severe MR
#Elevated procalcitonin with chest pain, can be 2/2 endocarditis
#Elevated ddimer
#UTI
#Elevated Cr
#Essential HTN
#Parkinson
#GERD
Discharge Plan
-
Patient Disposition: Senior Living/SNF
Discharge Diagnosis/Procedures: Pericarditis
Condition: Good
Diet: Low Sodium
Activity: With assistance
Driving Restrictions: As prior to admission
Referrals:
[facility] [Outside]
(Report [phone]
FAX [phone])
Darwin Reinoso MD [Family Provider] -
Raymon Rothman MD [Active] - in less than 1 week
Additional Discharge Medication Instructions: Colchicine for 6 weeks
Prescriptions:
New
colchicine 0.6 mg tablet
0.6 mg PO DAILY Qty: 30 0RF
ciprofloxacin HCl 250 mg Tablet
250 mg PO BID Qty: 5 0RF
Eliquis 2.5 mg Tablet
2.5 mg PO BID Qty: 60 0RF
pantoprazole 40 mg Tablet,Delayed Release (Dr/Ec)
40 mg PO DAILY Qty: 30 0RF
Continued
amantadine HCl 100 MG capsule
100 mg PO BID
albuterol sulfate [Ventolin HFA] 90 MCG/PUFF HFA aerosol inhaler
2 puff inhalation R Q6HPRN PRN (Reason: sob)
carbidopa-levodopa 25-100 mg Tablet
1 tab PO TID
verapamil 180 mg Tablet Extended Release
180 mg PO DAILY
cholecalciferol (vitamin D3) [Vitamin D3] 25 mcg (1,000 unit) Tablet
25 mcg PO DAILY
ondansetron HCl 4 mg Tablet
4 mg PO DAILYPRN PRN (Reason: nausea)
sertraline [Zoloft] 100 mg Tablet
50 mg PO DAILY
melatonin 3 mg Tablet
3 mg PO HS
albuterol sulfate 2.5 mg /3 mL (0.083 %) Solution For Nebulization
2.5 mg INHALATION R Q6HPRN PRN (Reason: sob)
albuterol sulfate 2.5 mg /3 mL (0.083 %) Solution For Nebulization
2.5 mg INHALATION R QID
calcium carbonate-vitamin D3 [Calcium 600 + D(3)] 600 mg-10 mcg (400 unit) Tablet
1 tab PO DAILY
lisinopril 20 MG tablet
40 mg PO DAILY
lorazepam 1 mg tablet
1 mg PO HS
tramadol 50 mg Tablet
50 mg PO Q6HPRN PRN (Reason: moderate pain) Qty: 8 0RF
acetaminophen 325 mg Tablet
650 mg PO Q4HPRN PRN (Reason: mild pain /fever >100.4) Qty: 1 0RF
magnesium hydroxide [Milk of Magnesia] 400 mg/5 mL Suspension
2,400 mg PO HSPRN PRN (Reason: IF NO BM ON 2ND DAY)
bisacodyl [Dulcolax (bisacodyl)] 10 mg Suppository
10 mg NJ DAILYPRN PRN (Reason: IF NO BM ON 3TH DAY)
Fleet Enema 19-7 gram/118 mL Enema
118 ml NJ DAILYPRN PRN (Reason: IF NO BM ON 4TH DAY)
docusate sodium [Colace] 100 mg Capsule
100 mg PO BID
magnesium oxide 400 mg magnesium Tablet
400 mg PO BID
Discharge Orders:
Discharge Patient (As Directed); Ordered 06/29/24
Ordered By: Harvey Sanderson
Care Plan Goals
Care Plan Goals:
Problem: Readiness for enhanced knowledge related to diagnosis and treatment plan
Goal: Understand your diagnosis and treatment plan needs, including medications if applicable.
Instructions: Know your diagnosis, underlying causes and treatment plan options, including medications if applicable. Consult with your health care team to learn about your diagnosis and treatment plan, including medications if applicable.
Discharge Date and Time
Print Language: KINYARWANDA
--- NOTE | 2024-06-29 13:36 | PTCARENOTE ---
Patient discharged to [facility]. Daughter driving her to the facility. Patient assisted into the car. Report called to Esther. Ledezma and tele removed. All belongings sent with patient
== END 2024-06-29 13:42 | DRG 315 ==
LOC: IVU 09:34
PROVIDERS: Emergency Medicine; Nurse Practitioner Gerontology; Physician Assistant Medical; Registered Nurse; Student in an Organized Health Care Education/Training Program; ADMITTING PHYSICIAN Internal Medicine; ATTENDING PHYSICIAN Internal Medicine; CONSULT PHYSICIAN Internal Medicine Cardiovascular Disease; EMERGENCY PHYSICIAN Emergency Medicine; FAMILY PHYSICIAN Family Medicine
DX: I30.9 Acute pericarditis, unspecified (principal); I5A Non-ischemic myocardial injury (non-traumatic); N17.9 Acute kidney failure, unspecified; N39.0 Urinary tract infection, site not specified; Z66 Do not resuscitate; Z11.52 Encounter for screening for COVID-19; I10 Essential (primary) hypertension; G20.A1 Parkinson's disease without dyskinesia, without mention of fluctuations; J45.909 Unspecified asthma, uncomplicated; F41.9 Anxiety disorder, unspecified; K21.9 Gastro-esophageal reflux disease without esophagitis; I48.91 Unspecified atrial fibrillation; E87.6 Hypokalemia
CPT/HCPCS: 93308; 71046; 71275; 80048; 80053; 80061; 81003; 81015; 83036; 83735; 84145; 84443; 84484; 85025; 85027; 85379; 85610; 85652; 86140; 87040; 87070; 87086; 87502; 87811; 93005; 93288; 93321; 93325; 93970; 94640; 94760; 96361; 96374; 97162; 97166; 97530; 99285; Q9967

== ENCOUNTER → 2024-07-02 08:45 | Outpatient (REF) | payer OTHER, MEDICARE, SELFPAY ==
[2024-07-02 10:39] LABS: ALT (SGPT) 13 U/L (0-35); AST (SGOT) 15 U/L (14-36); Albumin 3.4 g/dl (3.5-5.0); Alkaline Phosphatase 78 U/L (38-126); Blood Urea Nitrogen 18 mg/dl (7-17); Calcium 8.5 mg/dl (8.4-10.2); Carbon Dioxide 26 mmol/L (22-30); Chloride 107 mmol/L (98-107); Glucose 85 mg/dl (70-99); Magnesium 2.2 mg/dl (1.6-2.3); Potassium 4.2 mmol/L (3.5-5.1); Sodium 141 mmol/L (135-145); Total Bilirubin 0.5 mg/dl (0.2-1.3); Total Protein 5.6 g/dl (6.3-8.2); eGFR > 60.00
[2024-07-02 15:25] LABS: Hematocrit 34.7 % (37.0-47.0); Hemoglobin 11.3 g/dL (12.0-16.0); Mean Corp Hgb Conc. 32.6 g/dL (33.0-37.0); Mean Corpuscular Hgb 31.6 pg (27.0-31.0); Mean Corpuscular Volume 96.9 fL (81.0-99.0); Mean Platelet Volume 9.3 fL (7.4-10.4); Platelet Count 285 10^3/uL (130-400); Red Blood Cell Count 3.58 10^6/uL (4.20-5.40); Red Cell Dist. Width 13.7 % (11.5-14.5)
== END ==
LOC: OLABWHC 08:45
PROVIDERS: ATTENDING PHYSICIAN Family Medicine
DX: Z95.0 Presence of cardiac pacemaker (principal); I10 Essential (primary) hypertension; I48.91 Unspecified atrial fibrillation; N17.9 Acute kidney failure, unspecified; E87.6 Hypokalemia; G20.A1 Parkinson's disease without dyskinesia, without mention of fluctuations
CPT/HCPCS: 36415; 80053; 83735; 85027

== ENCOUNTER → 2024-08-06 09:42 | Outpatient (REF) | payer MEDICARE, OTHER, SELFPAY | LOC: RST 09:42 | PROVIDERS: ATTENDING PHYSICIAN Registered Nurse; FAMILY PHYSICIAN Family Medicine | DX: R13.12 Dysphagia, oropharyngeal phase (principal); G20.C Parkinsonism, unspecified | CPT/HCPCS: 74230; 92611 ==

== ENCOUNTER → 2024-08-20 10:06 | Outpatient (REF) | payer MEDICARE, OTHER, SELFPAY ==
[2024-08-20 11:01] LABS: % Basophils 0.6 % (0-2); % Eosinophils 0.7 % (0-6); % Immature Granulocytes 0.6 % (0-0.5); % Monocytes 7.3 % (1.7-9.3); % Neutrophils 82.8 % (42.2-75.2); Absolute Basophils 0.1 10^3/uL (0-0.2); Absolute Eosinophils 0.1 10^3/uL (0-0.7); Absolute Immature Granulocytes 0.1 10^3/uL (0-0.05); Absolute Lymphocytes 0.7 10^3/uL (1.2-3.4); Absolute Monocytes 0.6 10^3/uL (0.1-0.6); Absolute Neutrophils 6.9 10^3/uL (1.4-6.5); Hematocrit 36.3 % (37.0-47.0); Hemoglobin 11.3 g/dL (12.0-16.0); Mean Corp Hgb Conc. 31.1 g/dL (33.0-37.0); Mean Corpuscular Volume 93.1 fL (81.0-99.0); Mean Platelet Volume 8.8 fL (7.4-10.4); Nucleated Red Blood Cells % 0 %; Platelet Count 351 10^3/uL (130-400); Red Cell Dist. Width 14.5 % (11.5-14.5); White Blood Cell Count 8.3 10^3/uL (4.8-10.8)
[2024-08-20 12:19] LABS: Blood Urea Nitrogen 20 mg/dl (7-17); Calcium 9.4 mg/dl (8.4-10.2); Carbon Dioxide 28 mmol/L (22-30); Chloride 102 mmol/L (98-107); Glucose 96 mg/dl (70-99); Sodium 140 mmol/L (135-145); eGFR > 60.00
[2024-08-20 12:37] LABS: NT-proBNP 7610 pg/ml
== END ==
LOC: REG 10:06
PROVIDERS: ATTENDING PHYSICIAN Physician Assistant Medical; FAMILY PHYSICIAN Family Medicine
DX: R06.02 Shortness of breath (principal); J45.20 Mild intermittent asthma, uncomplicated; I13.0 Hypertensive heart and chronic kidney disease with heart failure and stage 1 through stage 4 chronic kidney disease, or unspecified chronic kidney disease
CPT/HCPCS: 36415; 71046; 80048; 83880; 85025

== ENCOUNTER → 2024-08-31 20:30 | Outpatient (REF) | payer MEDICARE, OTHER, SELFPAY ==
[2024-09-01 12:14] LABS: Urine Albumin Trace (Neg - Trace); Urine Bilirubin 1+ (Negative); Urine Character Clear (Clear); Urine Color Amber; Urine Glucose Negative (Negative); Urine Ketone Trace (Negative); Urine Leukocyte Negative (Negative); Urine Nitrite Negative (Negative); Urine Occult Blood Negative (Negative); Urine Specific Gravity 1.015 (<1.030); Urine Urobilinogen Negative (Neg - 1+); Urine pH 6.5 (5.0-9.0)
== END ==
LOC: OLABWPC 20:30
PROVIDERS: ATTENDING PHYSICIAN Family Medicine
DX: R30.0 Dysuria (principal)
CPT/HCPCS: 81003

== ENCOUNTER 2024-09-08 19:23 | Emergency (ER) | payer MEDICARE, OTHER, SELFPAY ==
[2024-09-08 19:28] VITALS: BMI 17.4
[2024-09-08 19:29] VITALS: BP 145/75
[2024-09-08 19:48] LABS: % Basophils 0.2 % (0-2); % Eosinophils 0.1 % (0-6); % Immature Granulocytes 1.5 % (0-0.5); % Lymphocytes 3.9 % (20.5-51.1); % Monocytes 4.7 % (1.7-9.3); % Neutrophils 89.6 % (42.2-75.2); Absolute Immature Granulocytes 0.3 10^3/uL (0-0.05); Absolute Lymphocytes 0.6 10^3/uL (1.2-3.4); Absolute Monocytes 0.8 10^3/uL (0.1-0.6); Absolute Neutrophils 14.8 10^3/uL (1.4-6.5); Hematocrit 38.1 % (37.0-47.0); Hemoglobin 11.7 g/dL (12.0-16.0); Mean Corp Hgb Conc. 30.7 g/dL (33.0-37.0); Mean Corpuscular Hgb 28.2 pg (27.0-31.0); Mean Corpuscular Volume 91.8 fL (81.0-99.0); Mean Platelet Volume 8.6 fL (7.4-10.4); Nucleated Red Blood Cells % 0 %; Platelet Count 264 10^3/uL (130-400); Red Blood Cell Count 4.15 10^6/uL (4.20-5.40); Red Cell Dist. Width 16.1 % (11.5-14.5); White Blood Cell Count 16.5 10^3/uL (4.8-10.8)
[2024-09-08 20:01] LABS: COVID-19 Antigen Negative (Negative)
--- NOTE | 2024-09-08 20:06 | ED.GENMED ---
History of Present Illness
General
Chief Complaint: Breathing Problem
Time Seen by Provider: 09/08/24 19:45
History of Present Illness
History of Present Illness:
78yoF hx asthma, parkinsons, HTN presneting with shortness of breath starting an hour ago. Pt states she was wheezing. Pt denies chest pain, cough, fever, or leg swelling. Pt states she gave herself a nebulizer and received another in the ambulance
with relief of symptoms. pt denies any sob currently. Pt states she is currently on prednisone.
Past History
Past History
ED Past Medical History: Asthma, HTN and Other (Parkinson's)
ED Past Surgical History: Orthopedic and Other (neuro stimulator May 2017)
Social History
Tobacco: Non-smoker
Alcohol: None
Drug: None
Personal:
Living: with family
Employment: Retired
Phy Exam
Physical Exam
Physical Exam:
General: Alert, no acute distress
Head: NCAT
Eyes: clear conjunctiva
Neck: supple
Cardiac: regular rate and rhythm, no murmur
Lungs: clear to auscultation bilaterally. No wheezes, rales, or rhonchi. Speaking full unlabored sentences. No respiratory distress.
Abdomen: soft, nondistended nontender. No rebound or guarding.
MSK: no lower extremity edema bilaterally. No deformity
Skin: warm, dry
Neuro: Alert no focal deficits
Scores
Heart Failure Risk
Heart Failure Risk Score: Not Applicable
Course
Orders/Labs/Results
Orders:
Orders
09/08/24 19:32
Electrocardiogram (*1) Urgent
Reason for Study: Shortness of Breath
EKG- Treatment ONCE
09/08/24 19:35
COVID-19 Antigen Urgent
Source: Nasal Swab
Complete Blood Count/With Diff Urgent
Comprehensive Metabolic Panel Urgent
Influenza A+B Rapid Molecular Urgent
EVELYN Source: Nasal Swab
Specimen Description:
09/08/24 20:05
CXR2 [CR Chest - 2 Views ] Urgent
Comment:
Reason For Exam: sob
09/08/24 21:32
Lorazepam [Ativan] 1 mg PO NOW STA
Abnormal Lab Results
09/08/24
19:35
WBC 16.5 H 10^3/uL
(4.8-10.8)
RBC 4.15 L 10^6/uL
(4.20-5.40)
Hgb 11.7 L g/dL
(12.0-16.0)
MCHC 30.7 L g/dL
(33.0-37.0)
RDW 16.1 H %
(11.5-14.5)
Abs Immat Gran (auto) 0.3 H 10^3/uL
(0-0.05)
Absolute Neuts (auto) 14.8 H 10^3/uL
(1.4-6.5)
Absolute Lymphs (auto) 0.6 L 10^3/uL
(1.2-3.4)
Absolute Monos (auto) 0.8 H 10^3/uL
(0.1-0.6)
Immature Gran % 1.5 H %
(0-0.5)
Neutrophils % 89.6 H %
(42.2-75.2)
Lymphocytes % 3.9 L %
(20.5-51.1)
BUN 33 H mg/dl
(7-17)
Glucose 138 H mg/dl
(70-99)
09/08/24 19:35
09/08/24 19:35
Vital Signs
Initial and Last Documented VS:
Initial Vital Signs
BP
145/75
09/08/24 19:29
Last Documented Vital Signs
Pulse Resp BP Pulse Ox
80 23 145/93 95
09/08/24 23:15 09/08/24 23:15 09/08/24 23:00 09/08/24 22:15
MDM/Problems Addressed
Differential Diagnosis Includes:
asthma exacerbation, pneumonia, viral syndrome
MDM/Problems Addressed:
Results reviewed. WBC 16.5, likely reactive from recent steroid use. Chest x-ray clear with no focal consolidation or infiltrate. EKG shows atrial fibrillation 75 bpm with QRS 138 QTc 451, significant artifact. COVID/influenza negative.
.
On reevaluation, patient speaking in full unlabored sentences with no acute distress. Lungs clear to auscultation. SpO2 within normal limits. Patient denies shortness of breath at this time. Discussed results with patient at bedside. Stable for
discharge with PCP follow-up.
*Critical Care Note
Total Time (30-74mins, 75-104mins- exclusive of procedures): Not Applicable
ED Attending Note
-
Portions of this chart may have been created with voice recognition software.� Occasional wrong word or��sound alike� substitutions may have occurred due to the inherent limitations of voice recognition software.
Discharge Plan
Departure
Patient Disposition: Home (Routine Discharge)
Date of Disposition: 09/08/24
Time of Disposition: 22:16
Patient with high blood pressure during this ER visit?: Yes
Discharge Problem:
Asthma exacerbation
Instructions: Asthma, Adult (DC), BLOOD PRESSURE
Prescriptions:
No Action
amantadine HCl 100 MG capsule
100 mg PO BID
albuterol sulfate [Ventolin HFA] 90 MCG/PUFF HFA aerosol inhaler
2 puff inhalation R Q6HPRN PRN (Reason: sob)
carbidopa-levodopa 25-100 mg Tablet
1 tab PO TID
verapamil 180 mg Tablet Extended Release
180 mg PO DAILY
cholecalciferol (vitamin D3) [Vitamin D3] 25 mcg (1,000 unit) Tablet
25 mcg PO DAILY
ondansetron HCl 4 mg Tablet
4 mg PO DAILYPRN PRN (Reason: nausea)
melatonin 3 mg Tablet
3 mg PO HS
albuterol sulfate 2.5 mg /3 mL (0.083 %) Solution For Nebulization
2.5 mg INHALATION R Q6HPRN PRN (Reason: sob)
albuterol sulfate 2.5 mg /3 mL (0.083 %) Solution For Nebulization
2.5 mg INHALATION R QID
calcium carbonate-vitamin D3 [Calcium 600 + D(3)] 600 mg-10 mcg (400 unit) Tablet
1 tab PO DAILY
lisinopril 20 MG tablet
40 mg PO DAILY
lorazepam 1 mg tablet
1 mg PO HS
tramadol 50 mg Tablet
50 mg PO Q6HPRN PRN (Reason: moderate pain) Qty: 8 0RF
magnesium hydroxide [Milk of Magnesia] 400 mg/5 mL Suspension
2,400 mg PO [id number] PRN (Reason: if no bm x2 days)
docusate sodium [Colace] 100 mg Capsule
100 mg PO BID
magnesium oxide 400 mg magnesium Tablet
400 mg PO Q48H
Eliquis 2.5 mg Tablet
2.5 mg PO BID Qty: 60 0RF
pantoprazole 40 mg Tablet,Delayed Release (Dr/Ec)
40 mg PO DAILY Qty: 30 0RF
prednisone 10 mg Tablet
10 mg PO .TAPER
Patient Comments:
09/08/24: take 10mg TID from 09/08/24-09/13/24, 10mg BID from 09/13/24-09/18/24, 10mg QD from 09/18/24-09/23/24
calcium carbonate [Tums] 200 mg calcium (500 mg) Tablet,Chewable
200 mg PO Q4HPRN PRN (Reason: heartburn)
sertraline [Zoloft] 50 mg Tablet
100 mg PO DAILY
guaifenesin 600 mg Tablet Extended Release 12hr
1,200 mg PO [id number] PRN (Reason: congestion)
fluticasone furoate-vilanterol [Breo Ellipta] 200-25 mcg/dose Blister With Device
1 inh INHALATION R DAILY
acetaminophen 325 mg tablet
650 mg PO Q6HPRN PRN (Reason: mild pain /fever >100)
Referrals:
Jose De Jesus Ruiz MD [Family Provider] -
Activity Restrictions/Additional Instructions:
Continue taking nebulizers as needed for cough/shortness of breath
Continue taking prednisone as prescribed
Follow-up with primary care doctor in 1 to 2 days
Return to emergency department for fever, difficulty breathing or new/worsening symptoms
Interventions
Interventions:
*Risk Screen - Suicide Last Done: 09/08/24 19:27
*General Assessment Last Done: 09/08/24 19:27
*Neglect/Abuse Screening Last Done: 09/08/24 19:27
ED- Fall Risk Assessment Last Done: 09/08/24 19:31
*ED COVID-19 Vaccine History Last Done: 09/08/24 19:27
*Nursing Disposition Last Done: 09/09/24 00:03
ED- Cardiac Assessment Last Done: 09/08/24 19:45
ED- Pulmonary Assessment Last Done: 09/08/24 19:49
Discharge Date and Time
Discharge Date/Time: 09/09/24 00:04
Print Language: NEPALESE
[2024-09-08 20:10] LABS: ALT (SGPT) 16 U/L (0-35); AST (SGOT) 22 U/L (14-36); Albumin 3.7 g/dl (3.5-5.0); Alkaline Phosphatase 112 U/L (38-126); Blood Urea Nitrogen 33 mg/dl (7-17); Calcium 9.6 mg/dl (8.4-10.2); Carbon Dioxide 28 mmol/L (22-30); Chloride 99 mmol/L (98-107); Estimated Creatinine Clearance 49 ml/min; Glucose 138 mg/dl (70-99); Potassium 4.8 mmol/L (3.5-5.1); Sodium 138 mmol/L (135-145); Total Bilirubin 0.3 mg/dl (0.2-1.3); Total Protein 6.3 g/dl (6.3-8.2); eGFR > 60.00
[2024-09-08] MEDS: ATIVAN 1 MG PO (21:35)
[2024-09-08 21:38] VITALS: BP 154/71
[2024-09-08 22:01] VITALS: BP 138/90
[2024-09-08 23:00] VITALS: BP 145/93
== END 2024-09-09 00:04 ==
LOC: EMR 19:23
PROVIDERS: Student in an Organized Health Care Education/Training Program; EMERGENCY PHYSICIAN Emergency Medicine; FAMILY PHYSICIAN Family Medicine
DX: J45.901 Unspecified asthma with (acute) exacerbation (principal); I10 Essential (primary) hypertension; G20.A1 Parkinson's disease without dyskinesia, without mention of fluctuations; I48.91 Unspecified atrial fibrillation
CPT/HCPCS: 99285; 71046; 80053; 85025; 87502; 87811; 93005

== ENCOUNTER 2024-10-05 05:28 | Inpatient (IN) | payer MEDICARE, OTHER, SELFPAY ==
[2024-09-27 12:12] VITALS: BMI 19.1
[2024-09-27 13:09] LABS: % Basophils 0.3 % (0-2); % Eosinophils 0.9 % (0-6); % Immature Granulocytes 0.4 % (0-0.5); % Lymphocytes 7.7 % (20.5-51.1); % Monocytes 11.1 % (1.7-9.3); % Neutrophils 79.6 % (42.2-75.2); Absolute Eosinophils 0.1 10^3/uL (0-0.7); Absolute Lymphocytes 0.7 10^3/uL (1.2-3.4); Absolute Neutrophils 7.2 10^3/uL (1.4-6.5); Hematocrit 39.7 % (37.0-47.0); Hemoglobin 12.1 g/dL (12.0-16.0); Mean Corp Hgb Conc. 30.5 g/dL (33.0-37.0); Mean Corpuscular Hgb 27.8 pg (27.0-31.0); Mean Corpuscular Volume 91.1 fL (81.0-99.0); Mean Platelet Volume 9.8 fL (7.4-10.4); Nucleated Red Blood Cells % 0 %; Platelet Count 134 10^3/uL (130-400); Red Blood Cell Count 4.36 10^6/uL (4.20-5.40); Red Cell Dist. Width 17.4 % (11.5-14.5); White Blood Cell Count 9.1 10^3/uL (4.8-10.8)
[2024-09-27 13:14] LABS: Urine Albumin 2+ (Neg - Trace); Urine Bilirubin Negative (Negative); Urine Character Clear (Clear); Urine Color Yellow; Urine Glucose Negative (Negative); Urine Ketone Negative (Negative); Urine Leukocyte Negative (Negative); Urine Nitrite Negative (Negative); Urine Occult Blood 1+ (Negative); Urine Specific Gravity 1.015 (<1.030); Urine Urobilinogen Negative (Neg - 1+)
[2024-09-27 13:19] LABS: INR 1.11; PT 14.6 Sec (11.4-14.6)
[2024-09-27 13:20] LABS: APTT 35.8 Sec (23.4-35.0)
[2024-09-27 13:31] LABS: Urine Bacteria Few (Negative); Urine Red Blood Cell 0-2 /HPF (0-2)
[2024-09-27 13:47] LABS: Glycohemoglobin (HgbA1c) 5.4 % (4.0-5.6)
[2024-09-27 14:02] LABS: ALT (SGPT) < 10 U/L (0-35); AST (SGOT) 14 U/L (14-36); Albumin 3.8 g/dl (3.5-5.0); Alkaline Phosphatase 88 U/L (38-126); Blood Urea Nitrogen 24 mg/dl (7-17); Calcium 9.5 mg/dl (8.4-10.2); Carbon Dioxide 26 mmol/L (22-30); Chloride 100 mmol/L (98-107); Direct Bilirubin 0.3 mg/dl (0.0-0.4); Estimated Creatinine Clearance 49 ml/min; Glucose 91 mg/dl (70-99); Potassium 4.8 mmol/L (3.5-5.1); Sodium 138 mmol/L (135-145); Total Bilirubin 0.8 mg/dl (0.2-1.3); Total Protein 6.2 g/dl (6.3-8.2); eGFR > 60.00
--- NOTE | 2024-09-27 14:06 | HPS.HSE ---
Family Physician
-
Family Physician: Sherice Weaver MD
Cardiology: Previously followed by Dr. Cam and now followed by Dr. Ignacio
Chief Complaint
-
ARREDONDO, severe MR. Pre-procedure history and physical.
History of Present Illness
Ms. Zacarias is a frail 78 year old woman with past medical history of progressive symptomatic moderate-severe nonrheumatic MR, hypertension, and Parkinson's disease with deep brain stimulator. She saw Dr. Ignacio previously for evaluation of severe
MR and was subsequently worked up for and deemed to be a candidate for Mitraclip which was originally planned for 07/08. Unfortunately, she presented with a fall and was subsequently found to have Mobitz 2 AV block, s/p DC Medtronic PPM 06/18/24.�
Recurrent admission 06/27/2024 with chest discomfort mostly with inspiration and was managed for post pacemaker pericarditis. She was also found to have new onset atrial fibrillation. Anticoagulation was initiated with Eliquis. Echo did not
demonstrate any pericardial effusion. She was treated with colchicine at a reduced dose secondary to the interaction with verapamil. She is now off cholchicine with resolution of chest pain. She continues Eliquis with no palpitations and no bleeding
issues. She continues to have progressive shortness of breath with minimal exertion and the plan is to proceed with Mitraclip on 10/05.
Medical History
Past Medical History
Past Medical History: Reports Arrhythmia (recently diagnosed with a-fib (Eliquis, ChadsVasc: 5)), Asthma (uses rescue inhaler), GERD, HTN, Valvular Disease (Mitral valve prolapse) and Other (Parkinson's disease, MGUS, chronic lower back pain,
osteoporosis, spinal stenosis, DDD, chronic bursitis L-trochanter, colon polyps, diverticulosis, cataracts, venous insufficiency, Vitamin D deficiency,Osteoarthritis, h/o pericarditis, SSS-PPM placed, idiopathic scoliosis )
Past Surgical History: Reports Other (Vein ligation, Bilateral tubal ligation, R-TKR, Fusion L2-S1, transmitter for Parkinsons, Medtronic PPM, laminectomy)
Social History
Tobacco: Former Smoker
Alcohol: None
Drug: None
Personal:
Living: Alone ([facility])
Family History
Family History: Not pertinent
Allergies / Home Medications
Allergies reflects when Allergies were last updated in [employer].
Home Medications with original date entered in [employer]
Allergy/Medication List:
Allergies:
Cephalosporins
Hydromorphone
PCN
Medications:
Albuterol Sulfate (2.5 MG/3ML) 0.083% Nebulization Solution INHALE 1 VIAL (3 ML) VIA NEBULIZER EVERY 6 HOURS.
Albuterol Sulfate HFA 108 (90 Base) MCG/ACT Aerosol Solution INHALE TWO PUFFS BY MOUTH EVERY SIX HOURS NEEDED - SHAKE WELL BEFORE USING.
Amantadine HCl 100 MG Capsule Take one tablets by mouth twice per day.Budesonide-Formoterol Fumarate 160-4.5 MCG/ACT Aerosol 2 puffs Inhalation Q12H.
Calcium 600-D 600-400 MG-UNIT Tablet take 1 tablet Orally once a day.Carbidopa-Levodopa 25-100 MG Tablet 1 tablet Orally Three times a day.
Colace(Docusate Sodium) 100 MG Capsule 1 capsule as needed Orally Once a day.
Eliquis(Apixaban) 2.5 MG Tablet as directed Orally twice a day.
guaiFENesin ER 600 MG Tablet Extended Release 12 Hour 1 tablet as needed Orally every 12 hrs.Lisinopril 20 MG Tablet TAKE 1 TABLET BY MOUTH ONCE DAILY -MAY CAUSE DIZZINESS OR LIGHTHEADEDNESS-.
LORazepam 1 MG Tablet 1 tablet at bedtime Orally Once a day
Magnesium Oxide 400 MG Tablet 1 tablet as needed Orally Once a day.
Melatonin 3 MG Tablet 1 tablet at bedtime as needed with food Orally Once a day.
Milk of Magnesia(Magnesium Hydroxide) 7.75 % Suspension 5 mL at least 4 hours between doses as needed Orally Four times a day.
Ondansetron HCl 4 MG Tablet 1 tablet Orally Once a day prn
Pantoprazole Sodium 40 MG Tablet Delayed Release 1 tablet 1/2 to 1 hour before morning meal Orally Once a day.
Sertraline HCl 50 MG Tablet 1 tablet Orally Once a day.
traMADol HCl 50 MG Tablet 1 tablet as needed Orally q 8 hours as needed.
Ventolin HFA(Albuterol Sulfate HFA) 108 (90 Base) MCG/ACT Aerosol Solution 1 puff as needed Inhalation every 4 hrs.
Verapamil HCl ER 180 MG Capsule Extended Release 24 Hour 1 capsule Orally Once a day.
Vitamin D3 1000 UNIT Tablet 1 tablet Orally Once a day.
Review of Systems
-
History Source: Patient
Constitutional: Reports Fatigue; Denies Fever, Weight Gain or Chills
EENT: Reports No Symptoms
Respiratory: Reports Other (asthma requiring use of rescue inhaler prn)
Cardiac: Reports Palpitations (); Denies Chest Pain or Syncope
Abdomen/GI: Reports No Symptoms; Denies Abdominal Pain, Nausea, Vomiting or Diarrhea
: Reports No Symptoms; Denies Dysuria, Urgency or Bleeding
Musculoskeletal: Reports No Symptoms; Denies Edema
Skin: Reports No Symptoms
Neurological: Reports Other (Parkinson's disease)
Endocrine: Reports No Symptoms
Hematologic/Lymphatic: Reports No Symptoms
Psych: Reports No Symptoms and Calm
Physical Exam
Physical Exam
General: No Apparent Distress, Comfortable, Conversant and Other (frail)
HEENT: NormoCephalic, Moist mucous membranes and PERRLA
Respiratory: Clear and Non Labored Respirations; No Wheezes, Rales or Rhonchi
Cardiac: S1/S2, Irregular Rhythm and Murmur (systolic murmur at apex)
Breast: Deferred by me
GI: Soft, Non Tender, Non Distended and Normal Bowel Sounds
Rectal: Deferred by Provider
Genito-urinary: Deferred by me
Musculoskeletal: No Edema
Skin: Warm, Dry and Other (right chest wall with neurotransmitter under skin, left chest wall with PPM under skin)
Neuro: Awake, AO x 3 and Nonfocal/grossly intact
Psych: Calm
Laboratory Results
-
09/27/24 12:
09/27/24 12:
Laboratory Results
PT 14.6 Sec (11.4-14.6) 09/27/24 12:
INR 1.11 09/27/24 12:
APTT 35.8 Sec (23.4-35.0) H 09/27/24:
Total Bilirubin 0.8 mg/dl (0.2-1.3) 09/27/24 12:
AST 14 U/L (14-36) 09/27/24:
ALT < 10 U/L (0-35) 09/27/24 12:
Alkaline Phosphatase 88 U/L (38-126) 09/27/24 12:
Data Reviewed
-
Diagnostic Radiology: Report Reviewed by me
Medical Tests (Nuc Med, Echo, EKG etc): Report Reviewed by me
Lab Data: Labs Reviewed by me
Old Records: Reviewed (Cardiology office notes, prior admission records)
Impression/Plan
-
IMPRESSION:
Severe, symptomatic mitral regurgitation
PLAN:
Given the patient's symptomatic progression, she would benefit from proceeding with Mitraclip at this time. Plan is to proceed on
-last dose of Eliquis 10/02, will resume post procedure
-ASA 324mg 10/03, 81mg 10/04, 10/05
-POD #!/#30 echocardiogram
-Cardiac rehab consult
--- NOTE | 2024-09-27 17:04 | CM ---
spoke to pt in PAT's, she lives in [place] at [facility] in [place]. she presents in a WC, she has parkinsons and arthritis and uses the WC for distances, she has a walker also. she has 24/7 caregivers thru [employer]. we discussed preop teaching for
Mitraclip including lifting restrictions. she does not drive. she would like to return to her AL apt after dc with caregivers. she is agreeable to a f/u visit from the ct transitional care nurse after dc she has the soap and instructions. plan is
for mitraclip 10/05. cm role explained and all questions answered.
[2024-10-05] VITALS (17 sets, daily range): BP systolic 91–188; BP diastolic 53–99; BMI 17.6
[2024-10-05] MEDS: BACTROBAN 2% OINTMENT 1 APPLIC NASAL (06:17)
--- NOTE | 2024-10-05 07:06 | PTCARENOTE ---
Addendum entered by Priscilla Petit RN 10/05/24 07:25:
Pt also took her carbidopa/levodopa 25-100mg.
Original Note:
Pt admitted to room 2266. Pt in wheelchair. Able to pivot to bed. Confirmed 2 CHG showers at home and NPO status. Pt changed into gown. Weight and VS obtained. Admission questions completed. Home medications confirmed. Pt took aspirin and inhaler
this AM. Pt clipped and wiped w/ CHG wipes. IV placed by IV team in left forearm. ABO drawn and sent. Family at the bedside. Consent needed. Awaiting oven laborer.
--- NOTE | 2024-10-05 08:23 | CM ---
Reviewed chart. Mrs. Zacarias is in the operating room today. Prior to admission she resides alone in assisted living at [facility]. Prior to admission she ambulates with a walker and uses a wheelchair for longer distances. She has 24x7
caregivers at home thru [employer]. Will need to see her current functional level to see if she will have any skilled care needs. Medical work-up in progress. The discharge plan is to return back to assisted living with 24x7 care givers and a
home visit by the Transitional Care Nurse verses SNF/Rehab. if indicated when medically stable.
[2024-10-05] MEDS: VANCOCIN 200 IV (08:34)
[2024-10-05] MEDS: STERILE WATER FOR INJECTION 10 ML IV ×2 (09:21→13:49)
[2024-10-05] MEDS: AZACTAM 2000 MG IV ×2 (09:21→13:48)
[2024-10-05 10:29] LABS: ACT-LR - POC 178 Seconds (116-155)
[2024-10-05 10:38] LABS: ACT-LR - POC 232 Seconds (116-155)
[2024-10-05 10:48] LABS: ACT-LR - POC 281 Seconds (116-155)
[2024-10-05 10:59] LABS: ACT-LR - POC 322 Seconds (116-155)
[2024-10-05 11:24] LABS: ACT-LR - POC 321 Seconds (116-155)
--- NOTE | 2024-10-05 12:43 | ITS.CL.PN ---
Newspaper Illustrator - Procedure Note
Procedure
Procedure Note:
TRANSCATHETER EDGE - TO - EDGE MITRAL VALVE REPAIR (SARANYA)/MITRACLIP REPORT
Date: October 05, 2024
Referring: Guillermo Leahy
Preoperative diagnosis: Severe eccentric degenerative mitral valve regurgitation with prolapse of P2.
Postoperative diagnosis: Severe eccentric degenerative mitral valve regurgitation with P2 prolapse.
Procedure(s): Transcatheter mitral valve edge to edge repair/MitraClip using one XTW.
Preprocedure MR severity: Severe
Postprocedure MR severity: Mild
Interventional Cardiology Operators: Drs. Jimmie Ignacio (Clip delivery), and Kasia Mota (trans-septal puncture)
KAIN Audit Officer(s): Mainor Marks
Anesthesia: GETA provided by the anesthesia staff.
Estimated Blood Loss: Minimal.
Complications: None.
Condition: Stable.
PROCEDURAL DETAILS:
The patient was brought to the cardiac catheterization lab and anesthetized by the anesthesiology staff. A transesophageal probe was placed and preliminary echocardiography was performed. The patient was prepped and draped in standard sterile
fashion. The right common femoral vein was accessed using a modified Seldinger technique with a micropuncture kit under ultrasound guidance. The vein was dilated with an 8 Micronesian dilator then preclosed with a Perclose percutaneous suture. And 8
Micronesian sheath was placed in the femoral vein. Heparin 4000 units was given.
The [employer] VersaCross system was prepped on the back table. The J-wire for the versa cross was advanced into the superior vena cava and the 8 Micronesian sheath was removed. The transseptal sheath was advanced over the wire and into the superior vena
cava. The J-wire was removed and the versa cross wire was advanced to the distal tip of the sheath, but remained within the dilator. This sheath was positioned in the interatrial septum with confirmed position on KAIN. Transseptal puncture was
performed by Dr. Marek Granados and the sheath was advanced into the left atrium. Additional heparin was given to achieve a therapeutic ACT. ACT was confirmed above 250 seconds. Oxygen saturation confirmed presence in the left atrium.
The MitraClip steerable sheath was prepped on the back table. The [place] sheath was withdrawn keeping the versa cross wire in the left atrium. The femoral vein was serially dilated and the steerable sheath was advanced through the vein, easily
crossing into the left atrium. Once we had satisfactory purchase of the sheath inside the left atrium the dilator and versa cross wire were removed and the steerable sheath was completely de-aired and flushed.
A(n) XTW MitraClip Delivery System was prepped on the back table. The clip was advanced through the steerable sheath and into the left atrium. The clip was oriented and advanced subvalvular to the mitral valve. Once we were satisfied with with
position, the grippers were lowered and the clip arms were tightened to 60 degrees. This demonstrated good position and clip stability. The clip was fully closed demonstrating good tissue bridge and mild residual mitral regurgitation. Transvalvular
gradient to. We were satisfied with these preliminary results and the clip was deployed. The delivery system was removed from the steerable sheath.
The mitral valve was reevaluated. Mitral valve regurgitation was still graded at mild. Mitral valve regurgitation continue to remain stable at mild with good systemic blood pressure, good tissue bridge on 3D imaging and stable mitral valve gradient
at 2 mmHg. No pericardial effusion was noted. Invasive hemodynamics revealed significant reduction in V waves down to 14 mmHg from 27 mmHg pre-MitraClip.
At this point, we were satisfied with our results. The steerable sheath was withdrawn into the right atrium, then negative tension was applied to straighten the catheter. The steerable sheath was withdrawn and the Perclose percutaneous suture was
tightened with good hemostasis.
The patient tolerated the procedure well, was brought out of anesthesia and transferred to the CVICU in stable condition.
IMPLANT(S)/POSITION:
1. One XTW MitraClip on medial aspect of A2-P2
RADIATION: Dose (mGy): 144.63; DAP (cm2.Gy): 21.08, Fluoroscopy time (minutes): 29.8
VALVE HEMODYNAMICS:
Preoperative
MR severity (0-4): 4+
Transmitral gradient (mmHg): 1
Postoperative
MR severity (0-4): 1+
Transmitral gradient (mmHg): 2
CONCLUSIONS:
1. Severe degenerative mitral valve regurgitation due to P2 prolapse s/p successful SARANYA using one XTW with reduction in mitral regurgitation from severe to mild and a final mean transmitral gradient of 2.
RECOMMENDATIONS:
1. Routine post procedure care.
2. Transthoracic echocardiogram ordered for tomorrow morning.
3. Plan to resume Eliquis this evening if no issues at the right groin access site.
Kasia Mota MD, [facility], [facility]
Copy to: Christophe Ignacio MD and Sherice Weaver MD
[2024-10-05] MEDS: ZESTRIL 40 MG PO (12:52)
[2024-10-05] MEDS: CALAN EXTENDED RELEASE 180 MG PO (12:53)
[2024-10-05] MEDS: VENTOLIN NEBULES INH (13:04)
[2024-10-05] MEDS: APRESOLINE 10 MG IV (13:48)
--- NOTE | 2024-10-05 14:00 | PTCARENOTE ---
Received from [facility] at 1207 - report given by Brenna CONTRERAS; AAOx3, drowsy but responds spontaneously to RN and follows commands; B/L hand tremors and weak hand grasps; Flat affect and forgetful; Shallow respirations; SpO2 97-99% on 7L simple mask; Lung
sounds diminished throughout; Afib with PVC's on monitor; Left sided PPM; +2 DP and radial pulses; Incontinent of urine and Purewick catheter in place draining clear, yellow urine; Right groin surgical site covered with 4x4 and tegaderm - CDI; Right
radial arterial line - line zeroed and level; PIVx2 #18 left wrist and #20 LAC; BP high upon arrival (190's-200's/90's) - REFINERY OPERATOR CRUDE UNIT Caitlin U. notified and PO lisinopril/verapamil ordered; BP still high after 40 minutes - REFINERY OPERATOR CRUDE UNIT Caitlin U. notified and IV
Hydralazine 10 mg ordered and given; See nursing documentation for further information.
[2024-10-05] MEDS: VENTOLIN NEBULES 2.5 MG INH ×2 (15:29→19:50)
[2024-10-05] MEDS: SINEMET 25-100 1 TABLET PO ×2 (15:57→21:41)
--- NOTE | 2024-10-05 17:55 | PTCARENOTE ---
Patient transferred OOB to chair; BP 90's/50's - patient asymptomatic and METAL FINISHER Caitlin Centeno notified and aware; Patient denies any pain at this time
--- NOTE | 2024-10-05 19:41 | ITS.CL.PN ---
Campaign Developer - Procedure Note
Procedure
Procedure Note:
Mitral Valve Transcatheter Vars-jo-Qyne Repair with MitraClip
Date of Procedure: 10/05/2024
Referring: Dr. Guillermo Cam MD
Indication: severe, symptomatic, degenerative mitral regurgitation due to P2 prolapse with high/prohibitive surgical risk
Operators: Christophe Ignacio MD, PhD (interventional cardiology, co-grinder set up operator surface); Dr. Kasia Mota MD (interventional cardiology, co-grinder set up operator surface); Dr. Mainor Marks MD (cardiac imaging)
Anesthesia: general anesthesia provided by the anesthesia staff
PROCEDURE: mitral valve transcatheter hovf-zj-rgtc repair with MitraClip XTW clip
ACCESS: 25F right femoral vein (closure: Perclose x2)
PROCEDURE NARRATIVE:
The patient was intubated and sedated by anesthesiology and then prepped and draped in standard sterile fashion. A KAIN probe was placed by cardiology and imaging performed demonstrating no left atrial appendage thrombus and no pericardial effusion.
Under ultrasound guidance, the right femoral vein was accessed. Two Perclose ProGlide sutures were placed in preclose fashion and an 8F sheath placed. Heparin was administered to achieve ACT>300.
Via the 8F sheath, a J-wire was placed in the SVC. The 8F sheath was exchanged for an 8.5F [employer] VersaCross Sheath and the J-wire exchanged for a [employer] VersaCross RF wire. Under KAIN guidance, the sheath was navigated to an appropriate posterior
superior portion of the septum. In a 4-chamber view, height above the mitral valve annulus was measured at >4 cm. Under RF application, the RF wire crossed into the LA and position was verified in the left upper pulmonary vein on KAIN. The sheath was
advanced through the septum to dilate the septum. The sheath was then removed, and serial dilation of the venous access site performed followed by placement of the MitraClip sheath which was advanced to the septum and crossed into the left atrium
followed by removal of the wire and dilator. Left atrial pressure was measured with v-waves to 27 mmHg.
Initial clip strategy was to place a single XTW clip centered over the focal MR jet created by the medial aspect of A2-P2. A MitraClip XTW clip delivery system was prepared on the back table and advanced to the tip of the sheath. Under KAIN guidance,
the clip was advanced out of the sheath to straddle position and carefully maneuvered until it was centralized above the valve plane. The clip was opened and grippers checked. Clip position, orientation, and trajectory were iteratively adjusted
under 2D and 3D KAIN guidance. In a grasping view, the clip was crossed into the LV. Position and orientation were again verified with 2D and 3D KAIN. The clip was carefully pulled back until anterior and posterior leaflet capture was observed and the
grippers were then dropped with tissue capture observed. The clip was then closed to 60 degrees, capture was verified, and the clip was then fully closed. Mitral regurgitation was assessed as mild. Mitral gradient was 2 mmHg. Based on this, the
decision was made to release the clip. Clip release was performed in the usual fashion and the clip was verified to be stable on KAIN and fluoroscopy after release. There was no significant change in MR or mitral gradients post release. The CDS was
removed with the guide aspirated. Left atrial pressure was measured with v-waves significantly reduced to 14 mmHg. The sheath was removed from the LA and there was observed to be an expected ASD without significant R-L flow. There was no effusion.
The sheath was removed from the venotomy and the venotomy closed with deployment of the PerClose sutures with excellent hemostasis verified. This concluded the procedure. The patient was extubated by anesthesia and taken to the cath recovery unit in
stable condition.
RADIATION: dose 144.63 mGy; DAP 21.08 Gy*cm2; fluoroscopy time 29.8 min
CONCLUSION: mitral transcatheter addr-oc-vhjo repair with placement of a single XTW clip at the medial aspect of A2-P2 with reduction in MR from 4+ to 1+ and final mitral valve gradient of 2 mmHg
RECOMMENDATIONS:
1. anticoagulation with Eliquis
2. repeat TTE in AM
3. cardiology follow up in 2 weeks
Copy to: Dr. Guillermo Cam MD (synthetic soil blocks pulper); Dr. Sherice Weaver MD (PCP)
Signed: Chrisotphe Ignacio MD, PhD
[2024-10-05] MEDS: SYMBICORT 160/4.5 MCG INHALER 2 PUFF INH (19:50)
--- NOTE | 2024-10-05 20:30 | PTCARENOTE ---
Patient received from RN @ 1900. Patient laying in bed comfortable w/ call ryan in reach. AOx3. A. Fib BP 115/53 HR 65. Heart sounds irregular, audible. Permanent pacemaker present on left side of chest. Deep brain stimulator on right side of
chest. Radial and pedal pulses present bilaterally. Lungs clear but diminished in the bases bilaterally. POX 93% RA. Bowel sounds normoactive. Purewick draining clear yellow urine WNL. Left electroplater apprentice strength weakness baseline due to Parkinson
disease. Decreased sensation noted in hands bilaterally at baseline. Right groin puncture dressing dry and intact. Right A-line removed per order. Right and left PIV patent and intact.
[2024-10-05] MEDS: SYMMETREL 100 MG PO (21:41)
[2024-10-05] MEDS: ATIVAN 1 MG PO (21:41)
[2024-10-05] MEDS: ELIQUIS 2.5 MG PO (21:41)
[2024-10-06] VITALS (21 sets, daily range): BP systolic 90–179; BP diastolic 53–137; PULSE 77–83; O2SAT 93–94; BMI 17.7; BMI 17.6
--- NOTE | 2024-10-06 | PTCARENOTE ---
Patient reassessed. No significant changes. A. Fib w/ occasional V-pacing. BP 116/62 HR 68 POX 91% RA. 1 episode of incontinence. Purewick replaced.
--- NOTE | 2024-10-06 02:54 | DOWNTIME ---
There was a D-Sight Client Water Manager Downtime on 10/06/2024 from 0100 to 10/06/2023 at 0235 . Downtime documentation of patient's care, including medication administrations, has been reconciled in the electronic record per guidelines. Refer to the
patient's paper chart under the miscellaneous tab to see printed paper medication records and downtime forms.
--- NOTE | 2024-10-06 04:00 | PTCARENOTE ---
Patient reassessed. Labs drawn. A. Fib BP 176/81 HR 64 POX 94% RA. Hydralazine and Tylenol given per CT PA Ed. Patient incontinent of urine.
[2024-10-06] MEDS: APRESOLINE 5 MG IV (04:36)
[2024-10-06] MEDS: TYLENOL 650 MG PO (04:57)
[2024-10-06 05:26] LABS: Blood Urea Nitrogen 31 mg/dl (7-17); Calcium 8.2 mg/dl (8.4-10.2); Carbon Dioxide 27 mmol/L (22-30); Chloride 107 mmol/L (98-107); Estimated Creatinine Clearance 43 ml/min; Glucose 111 mg/dl (70-99); Magnesium 2.1 mg/dl (1.6-2.3); Potassium 4.8 mmol/L (3.5-5.1); Sodium 140 mmol/L (135-145); eGFR > 60.00
[2024-10-06 05:50] LABS: Hematocrit 33.7 % (37.0-47.0); Hemoglobin 10.5 g/dL (12.0-16.0); Mean Corp Hgb Conc. 31.2 g/dL (33.0-37.0); Mean Corpuscular Hgb 27.6 pg (27.0-31.0); Mean Corpuscular Volume 88.7 fL (81.0-99.0); Mean Platelet Volume 8.4 fL (7.4-10.4); Platelet Count 332 10^3/uL (130-400); Red Cell Dist. Width 17.2 % (11.5-14.5); White Blood Cell Count 7.4 10^3/uL (4.8-10.8)
[2024-10-06] MEDS: ZESTRIL 40 MG PO (06:12)
--- NOTE | 2024-10-06 07:54 | W.PN.ANS.POP ---
Anesthesia Post Operative
- Anesthesia Post Op Note
Vital Signs Stable-See Nursing Note: Yes
Airway Patent: Yes
Adequate Pain Control: Yes
Change in Mental Status: No
Current Postoperative Nausea & Vomiting: No
Anesthesia Complications: No
General Anesthetic Recall: No
Unplanned Admission: No
Post Op Hydration Adequate: Yes
[2024-10-06] MEDS: VENTOLIN NEBULES 2.5 MG INH ×3 (08:14→15:37)
[2024-10-06] MEDS: SYMBICORT 160/4.5 MCG INHALER 2 PUFF INH (08:14)
[2024-10-06] MEDS: LOW STRENGTH ASPIRIN 81 MG PO (08:17)
[2024-10-06] MEDS: SYMMETREL 100 MG PO (08:18)
[2024-10-06] MEDS: ZOLOFT 100 MG PO (08:18)
[2024-10-06] MEDS: PROTONIX 40 MG PO (08:18)
[2024-10-06] MEDS: CALAN EXTENDED RELEASE 180 MG PO (08:18)
[2024-10-06] MEDS: SINEMET 25-100 1 TABLET PO ×2 (08:18→15:15)
[2024-10-06] MEDS: ELIQUIS 2.5 MG PO (08:19)
--- NOTE | 2024-10-06 08:22 | PTCARENOTE ---
Patient received from hourly shift manager resting in bed, AAO X 3, denies pain. Afib w/V-pacing noted, SaO2 @ 96% on RA. R groin procedural site cdi, no ecchymosis or hematoma noted, distal pulse palp. Patient incontinent small amount urine. Assisted oob to
chair x 2 assist. Breakfast ordered. Patient updated to plan of care for the day, in agreement. See work list for full assessment and interventions performed.
--- NOTE | 2024-10-06 09:01 | W.PN.CARDCBS ---
Addendum entered and electronically signed by AVINASH Mcfarlane 10/06/24 16:41:
Her BMI is 17.7, she is underweight, not significant wt loss over last year, appreciate dietary consult and recommendations
Original Note:
Today's Communication / Plan
-
post SARANYA, f/u Echo this am
if stable plan for d/c back to [facility] today
Impression / Plan
-
PCP: Sherice Weaver MD
ED: Jimmie Ignacio MD
Impresssion/Plan:
# Severe degenerative mitral valve regurgitation due to P2 prolapse- s/p successful SARANYA using one XTW with reduction in mitral regurgitation from severe to mild and a final mean transmitral gradient of 2
groin stable, tele Afib with occ Vpacing, f/u Echo this am and repeat in 30days
#HTN - elevated post procedure requiring hydralazine, resume home meds lisinopril and verapamil
#Atrial fibrillation - [id number] VASc =5, continue Eliquis,
# SSS/Mobitz 2 AVB - post DC PPM 06/18/24 c/b Pericarditis delaying SARANYA procedure
#Parkinson - continue carbidopa-levodopa and amantadine, h/o deep brain stimulator 2017
#Asthma - continue inhalers, nebs, guaifenesin
#GERD - PPI
#Dispo - d/c home after Echo complete
Progress Note - Spar Machine Operator Helper
Subjective
Date of Service: October 06, 2024
denies cp, mild sore throat and PND congestion
Objective
Labs:
10/06/24 04:23
10/06/24 04:23
Labs
Hgb 10.5 g/dL (12.0-16.0) L 10/06/24 04:23
Hct 33.7 % (37.0-47.0) L 10/06/24 04:23
Plt Count 332 10^3/uL (130-400) 10/06/24 04:23
PT 14.6 Sec (11.4-14.6) 09/27/24 12:27
INR 1.11 09/27/24 12:27
APTT 35.8 Sec (23.4-35.0) H 09/27/24 12:27
Sodium 140 mmol/L (135-145) 10/06/24 04:23
Potassium 4.8 mmol/L (3.5-5.1) 10/06/24 04:23
BUN 31 mg/dl (7-17) H 10/06/24 04:23
Creatinine 0.8 mg/dL (0.6-1.0) 10/06/24 04:23
Glucose 111 mg/dl (70-99) H 10/06/24 04:23
Vital Signs and I&O:
Vital Signs
Temp Pulse Resp BP Pulse Ox
98.2 F 70 16 141/78 95
10/06/24 07:28 10/06/24 08:20 10/06/24 08:20 10/06/24 08:18 10/06/24 08:18
Vital Signs
Temp Pulse Resp BP Pulse Ox
98.2 F 70 16 141/78 95
10/06/24 07:28 10/06/24 08:20 10/06/24 08:20 10/06/24 08:18 10/06/24 08:18
Intake & Output
10/04/24 10/05/24 10/06/24 10/07/24
06:59 06:59 06:59 06:59
Intake Total 340 / 340 250 / 250
Output Total 750 / 750
Balance -410 / -410 250 / 250
Physical Exam
Physical Exam
NAD< AOX3
S1, S2, RRR, I/ DINA at apex
diminished t/o faint exp wheeze LLL, no rales, rhonchi
SNTND Bsx4
R fem site c/d/i no HT, soft
--- NOTE | 2024-10-06 10:36 | CM ---
Reviewed chart. Met with Mrs. Zacarias and her children to review discharge plans. She states she is feeling well and maybe able to go home soon. She states prior to admission she resides at [facility]. She states she has been
there since November. She states prior to admission she uses a wheelchair for mobility. She states she has 24x7 care givers at the [facility] with [facility]. She states the nursing care from [facility] check on her three times a day.
She states she has a prescription plan. We reviewed a home visit by the Transitional Care Nurse. She is agreeable to a home visit. Telephone call to [facility] to update them on her possible return today. [facility] would like report if possible. The telephone number is ( [phone]). Will sent medical record with her. She states her family will provide transportation back to [facility]. Medical work-up in
progress. The discharge plan is to return to [facility] with a home visit by the Transitional Care Nurse when medically stable.
--- NOTE | 2024-10-06 11:44 | PTCARENOTE ---
VSS, patient resting comfortably, family at bedside. Denies pain.
--- NOTE | 2024-10-06 12:25 | W.PN.CD ---
Addendum entered and electronically signed by Marek Granados DO 10/06/24 15:49:
Attestation: I have seen and examined the patient. I can confirm Dr. Guillory's findings and I agree with her assessment and plan as documented.
78-year-old female with a history of hypertension, Parkinson's disease, hyperlipidemia and sick sinus syndrome status post pacemaker complicated by pericarditis admitted for elective transcatheter mitral valve swjw-iy-ztfo repair (SARANYA). The
patient had 1 XTW MitraClip placed yesterday with reduction of severe MR to trace/mild. Gradient on the KAIN was 2 mmHg. The patient tolerated the procedure well and was monitored overnight. This morning, the patient feels well. She denies any
chest pain. There is very mild tenderness at the access site with no evidence of hematoma.
Vital signs were reviewed. She does have some occasional hypertension.
In general, she is alert awake and oriented x 3. She does have some masklike facies associated with her Parkinson's disease.
Her cardiac exam is notable for an irregularly irregular rhythm. There is a short, early systolic murmur heard best at the LV apex.
Lungs are clear to auscultation bilaterally.
Her abdomen is soft, nontender nondistended.
Right femoral venous access site is clean, dry and intact. There is very mild tenderness to palpation without evidence of hematoma.
Laboratory studies were reviewed and generally stable.
Home medications have been resumed, including therapeutic anticoagulation.
Plan for nurse practitioner follow-up in our office in 2 to 3 weeks and physician follow-up in 3 months.
Repeat echocardiogram has been ordered.
Stable for outpatient follow-up.
Original Note:
Today's Communication / Plan
-
Echo read pending, repeat echo in 30 days after dc
Impression / Plan
-
PCP: Sherice Weaver MD
ED: Jimmie Ignacio MD
Impression/Plan:
Severe degenerative mitral valve regurgitation due to P2 prolapse-
-S/p successful SARANYA using one XTW with reduction in mitral regurgitation from severe to mild and a final mean transmitral gradient of 2 groin stable, tele Afib with occ Vpacing.
-F/u echo read pending
- Potential dc today if everything on the echo is unremarkable.
-Plan to repeat echo in 30 days after dc.
HTN
-BP stable
-Resume home meds lisinopril and verapamil
Atrial fibrillation
- [id number] VASc =5
- continue Eliquis,
Sick sinus syndrome/Mobitz 2 AVB
-PPM 06/18/24
Parkinson Disease
-Continue carbidopa-levodopa and amantadine, h/o deep brain stimulator 2017
Asthma
-continue inhalers, nebs, guaifenesin
#GERD - PPI
#Dispo - d/c home after Echo complete
Physical Exam
Vital Signs/Labs
Vital Signs
Temp Pulse Resp BP Pulse Ox
98.3 F 87 16 106/54 95
10/06/24 11:42 10/06/24 12:00 10/06/24 12:00 10/06/24 11:29 10/06/24 12:00
10/05/24 10/06/24 10/07/24
06:59 06:59 06:59
Actual Weight 48 kg
10/06/24 04:23
10/06/24 04:23
PT 14.6 Sec (11.4-14.6) 09/27/24 12:27
INR 1.11 09/27/24 12:27
APTT 35.8 Sec (23.4-35.0) H 09/27/24 12:27
Magnesium 2.1 mg/dl (1.6-2.3) 10/06/24 04:23
Physical Exam
Constitutional: No acute distress and Comfortable
EENT: Anicteric and Moist mucous membranes
Cardiovascular: Rhythm & rate is regular and Other (mild systolic murmur at the apex)
Respiratory: Lungs clear to auscul.
GI: Soft, Distention absent and Non tender
Neuro/Psych: AO x 3
Data Reviewed
-
Date of Service: October 06, 2024
Medical Decision Making: Reviewed Test Results
EKG: Report Reviewed by me
Echo: Report Reviewed by me
--- NOTE | 2024-10-06 14:38 | W.DS.TRANS ---
DC Summary - Senior Business Process Analyst
-
Discharge Instructions:
Discharge Diagnosis/Procedures Mitraclip
Diet 2 Gram Sodium,Low Cholesterol
Driving Restrictions No driving for 1 week
Bathing Restrictions OK to Shower
Others Tests 30 day follow up echocardiogram:11/04/2024 at 11:
20am at [facility].
Your 6 month follow up echocardiogram is
scheduled for 04/06/2025 @ 11:20 at [facility]
Other Services Cardiac Rehab
Wound Care Do not apply lotions, creams or powder to groin
areas. Keep groins clean and dry.
Specialty Instructions Weigh Daily
Instructions:
Stand-Alone Forms: DC Instructions- Cath/EP Lab
Changes to Home Medications: No
Discharge Medications:
DC Medications w/original date entered in [email or web address]
albuterol sulfate 90 mcg/actuation aerosol inhaler (Ventolin HFA) 2 puff inhalation Q6HPRN PRN sob 12/10/17
amantadine HCl 100 mg capsule 100 mg PO BID parkinson's disease 12/10/17
carbidopa 25 mg-levodopa 100 mg tablet 1 tab PO TID parkinson's disease 09/06/22
cholecalciferol (vitamin D3) 25 mcg (1,000 unit) tablet (Vitamin D3) 25 mcg PO DAILY Supplement 10/11/23
verapamil 180 mg tablet,extended release 180 mg PO DAILY Heart Disease/Condition 10/11/23
melatonin 3 mg tablet 3 mg PO HS sleep 05/26/24
ondansetron HCl 4 mg tablet 4 mg PO DAILYPRN PRN nausea 05/26/24
albuterol sulfate 2.5 mg/3 mL (0.083 %) solution for nebulization 2.5 mg inhalation Q6HPRN PRN sob 06/15/24
albuterol sulfate 2.5 mg/3 mL (0.083 %) solution for nebulization 2.5 mg inhalation QID Lung/Breathing Issues 06/15/24
calcium 600 mg (as carbonate)-vitamin D3 10 mcg (400 unit) tablet (Calcium 600 + D(3)) 1 tab PO DAILY Supplement 06/15/24
lisinopril 20 mg tablet 40 mg PO DAILY Blood Pressure 06/15/24
lorazepam 1 mg tablet 1 mg PO HS anxiety/sleep 06/15/24
tramadol 50 mg tablet 50 mg PO Q6HPRN PRN moderate pain #8 tabs 06/19/24
docusate sodium 100 mg capsule (Colace) 100 mg PO BID Constipation 06/26/24
magnesium hydroxide 400 mg/5 mL oral suspension (Milk of Magnesia) 2,400 mg PO [id number] PRN if no bm x2 days 06/26/24
magnesium oxide 400 mg PO Q48H Supplement 06/26/24
apixaban 2.5 mg tablet (Eliquis) 2.5 mg PO BID #60 tabs 06/29/24
pantoprazole 40 mg tablet,delayed release 40 mg PO DAILY #30 tabs 06/29/24
acetaminophen 325 mg tablet 650 mg PO Q6HPRN PRN mild pain /fever >100 09/08/24
calcium carbonate (Tums) 200 mg PO Q4HPRN PRN heartburn 09/08/24
fluticasone furoate 200 mcg-vilanterol 25 mcg/dose inhalation powder (Breo Ellipta) 1 inh inhalation R DAILY Lung/Breathing Issues 09/08/24
guaifenesin 600 mg tablet, extended release 12 hr 1,200 mg PO [id number] PRN congestion 09/08/24
prednisone 10 mg tablet 10 mg PO .TAPER Anti-Inflammatory 09/08/24
sertraline 50 mg tablet (Zoloft) 100 mg PO DAILY Mental Health/Anxiety 09/08/24
aspirin 81 mg chewable tablet 81 mg PO DAILY Blood Clot Prevention/Tx 10/05/24
Home Medication Changes
Pending Results: No
--- NOTE | 2024-10-06 16:10 | PTCARENOTE ---
Discharge instructions thoroughly reviewed w/patient and son, all questions answered. PIV removed. Report called to [facility]. Patient and all belongings transported to vehicle for d/c home to facility.
--- NOTE | 2024-10-06 16:18 | PN.CDI ---
CDI
- -
CDI:
Physician Documentation Request
Admit Date: 10/05/24 05:28
Dear Doctor,
Please review the following and provide your response in the progress notes.
Clinical Indicators:
Height: 5'5'
Weight:106lb, 4.2oz
BMI:17.7
10/06 Registered Dietitian Note: 'Review as per consult, BMI report.... Per current clinical data at admission pt with 14-23 lb wt loss. Review of records shows weight of 119 lbs 0.794oz from 10-09-2023; current wt 105 lbs 13.15 oz on 10-05-2024,
reflecting a loss of 14 lbs (11.7% wt change)-1 year-not significant however will monitor..'
If possible, please provide an associated diagnosis related to the abnormal BMI, such as:
BMI < or = to 19
Underweight
Weight Loss
Cachectic
Anorexia
BMI is not significant
Other
Use of terms such as suspected, likely, concern for, or probable (associated with a specific diagnosis that is being evaluated, monitored, or treated as if it exists) are acceptable and can be coded in the inpatient setting, when documented at the
time of discharge.
Thank you,
Miranda Mooney RN, BSN
CDI Specialist
[place] [facility]
Please use your independent medical judgment in providing your response.
== END 2024-10-06 16:43 | disposition home or self-care (01) | DRG 267 ==
LOC: CVICU 05:28
PROVIDERS: Nurse Practitioner; ADMITTING PHYSICIAN Student in an Organized Health Care Education/Training Program; FAMILY PHYSICIAN Family Medicine
PROC: B24BZZ4 Ultrasonography of Heart with Aorta, Transesophageal (ICD-10-PCS; 2024-10-05)
PROC: 02UG3JZ Supplement Mitral Valve with Synthetic Substitute, Percutaneous Approach (ICD-10-PCS; 2024-10-05)
DX: I34.0 Nonrheumatic mitral (valve) insufficiency (principal); Z00.6 Encounter for examination for normal comparison and control in clinical research program; Z68.1 Body mass index [BMI] 19.9 or less, adult; I10 Essential (primary) hypertension; G20.A1 Parkinson's disease without dyskinesia, without mention of fluctuations; I44.1 Atrioventricular block, second degree; I49.5 Sick sinus syndrome; I48.0 Paroxysmal atrial fibrillation; E55.9 Vitamin D deficiency, unspecified; G89.29 Other chronic pain; M81.0 Age-related osteoporosis without current pathological fracture; J45.909 Unspecified asthma, uncomplicated; I87.2 Venous insufficiency (chronic) (peripheral); D47.2 Monoclonal gammopathy; R63.6 Underweight; M48.00 Spinal stenosis, site unspecified; M51.9 Unspecified thoracic, thoracolumbar and lumbosacral intervertebral disc disorder; M41.20 Other idiopathic scoliosis, site unspecified; E78.5 Hyperlipidemia, unspecified; K21.9 Gastro-esophageal reflux disease without esophagitis; M19.90 Unspecified osteoarthritis, unspecified site; Z95.0 Presence of cardiac pacemaker; Z87.891 Personal history of nicotine dependence; Z79.01 Long term (current) use of anticoagulants
CPT/HCPCS: 93308; 33418; 36415; 71046; 80048; 80053; 81003; 81015; 82248; 83036; 83735; 85025; 85027; 85347; 85610; 85730; 86850; 86870; 86900; 86901; 86902; 86905; 86920; 86922; 87070; 93005; 93321; 93325; 93355; 94640; 97162; 97166; 97530; C1760; C1894

== ENCOUNTER → 2024-11-04 11:09 | Outpatient (REF) | payer MEDICARE, OTHER, SELFPAY | LOC: RCS 11:09 | PROVIDERS: ATTENDING PHYSICIAN Student in an Organized Health Care Education/Training Program; FAMILY PHYSICIAN Family Medicine | DX: I30.8 Other forms of acute pericarditis (principal); I48.0 Paroxysmal atrial fibrillation; I34.0 Nonrheumatic mitral (valve) insufficiency; I49.5 Sick sinus syndrome | CPT/HCPCS: 93306 ==

== ENCOUNTER → 2024-11-08 09:33 | Outpatient (REF) | payer MEDICARE, OTHER, SELFPAY | LOC: RST 09:33 | PROVIDERS: ATTENDING PHYSICIAN Family Medicine | DX: R05.1 Acute cough (principal); R09.89 Other specified symptoms and signs involving the circulatory and respiratory systems; R13.10 Dysphagia, unspecified | CPT/HCPCS: 74230; 92611 ==

== ENCOUNTER → 2024-11-17 21:00 | Outpatient (REF) | payer MEDICARE, OTHER, SELFPAY ==
[2024-11-18 13:11] LABS: Urine Albumin 2+ (Neg - Trace); Urine Bilirubin Negative (Negative); Urine Character Clear (Clear); Urine Color Yellow; Urine Glucose Negative (Negative); Urine Ketone Negative (Negative); Urine Leukocyte 1+ (Negative); Urine Nitrite Negative (Negative); Urine Occult Blood Negative (Negative); Urine Urobilinogen Negative (Neg - 1+)
[2024-11-18 13:32] LABS: Urine Calcium Oxalate Crystals Present; Urine Hyaline Cast 0-2 /LPF (0-2); Urine Squamous Cell 26-30 /LPF (Few); Urine Urothelial Cell 0-2 /LPF (FEW)
[2024-11-18 13:33] LABS: Urine Bacteria Few (Negative); Urine Red Blood Cell 0-2 /HPF (0-2)
== END ==
LOC: OLABWPC 21:00
PROVIDERS: ATTENDING PHYSICIAN Family Medicine
DX: R35.0 Frequency of micturition (principal)
CPT/HCPCS: 81003; 81015; 87086

== ENCOUNTER 2024-12-05 11:38 | Emergency (ER) | payer MEDICARE, OTHER, SELFPAY ==
[2024-12-05 11:42] VITALS: BP 156/126
--- NOTE | 2024-12-05 12:45 | ED.GENMED ---
History of Present Illness
General
Chief Complaint: Musculo-Skeletal Complaint
Time Seen by Provider: 12/05/24 12:05
History of Present Illness
History of Present Illness:
79-year-old female with history of Parkinson's status post deep brain stimulator placement, hypertension, and asthma presents to the emergency department for evaluation of intermittent episodes of left-sided neck and trapezius pain ongoing for the
past 2 weeks. She reports spastic episodes of pain lasting anywhere from 15 to 30 minutes, no episodes of pain in between this. Does feel as though she has limited range of motion of the neck. Denies any injuries or acute trauma. Denies any
radiation of pain or paresthesias to the upper extremities.
Past History
Past History
ED Past Medical History: Asthma, HTN and Other (Parkinson's)
ED Past Surgical History: Orthopedic and Other (neuro stimulator May 2017)
Social History
Tobacco: Non-smoker
Alcohol: None
Drug: None
Personal:
Living: with family
Employment: Retired
Review of Systems
Review of Systems
Allergies reviewed?: Yes
All Other Systems: ROS reviewed and negative except as documented in HPI and ROS
Phy Exam
Physical Exam
Physical Exam:
GEN: Well appearing, NAD, WDWN
HEENT: Oral mucosa moist, no scleral icterus
Cardiac: Regular rate
Lung: No respiratory distress, no tachypnea
MSK: No gross deformity or injuries. Reproducible tenderness to palpation in the left cervical paraspinous musculature and very specific points along the muscle belly into the trapezius, normal range of motion of the cervical spine and left upper
extremity
Skin: Good color, no pallor or jaundice, no rashes
Neuro: AO x3, moves all extremities freely
Psych: Calm, cooperative
Course
Orders/Labs/Results
Orders:
Orders
12/05/24 12:48
Triamcinolone Injectable [Kenalog-40] 40 mg IM NOW STA
12/05/24 12:51
CR Cervical Spine 2 or 3 Vw Urgent
Comment: 2v AP/lateral
Reason For Exam: neck pain
12/05/24 12:55
Triamcinolone Injectable [Kenalog-40] 40 mg IM NOW STA
12/05/24 14:12
Oxycodone [Roxicodone] 5 mg PO NOW STA
Vital Signs
Initial and Last Documented VS:
Initial Vital Signs
Temp Pulse Resp BP Pulse Ox
98.5 F 68 16 156/126 96
12/05/24 11:42 12/05/24 11:42 12/05/24 11:42 12/05/24 11:42 12/05/24 11:42
Last Documented Vital Signs
Temp Pulse Resp BP Pulse Ox
98.5 F 68 18 168/87 96
12/05/24 11:42 12/05/24 14:19 12/05/24 14:19 12/05/24 14:19 12/05/24 14:19
MDM/Problems Addressed
MDM/Problems Addressed:
I performed trigger point injections in 3 locations to the left trapezius and paraspinous cervical musculature using 2 cc of 0.5% bupivacaine and 0.5 cc of 40 mg/mL Kenalog. Patient given single dose of oxycodone in the ED. She will follow-up with
her primary care physician as an outpatient
*Critical Care Note
Total Time (30-74mins, 75-104mins- exclusive of procedures): Not Applicable
ED Attending Note
-
Portions of this chart may have been created with voice recognition software.� Occasional wrong word or��sound alike� substitutions may have occurred due to the inherent limitations of voice recognition software.
Discharge Plan
Departure
Patient Disposition: Home (Routine Discharge)
Date of Disposition: 12/05/24
Time of Disposition: 14:12
Patient with high blood pressure during this ER visit?: No
Discharge Problem:
Cervical myofascial pain syndrome
Instructions: Neck pain - ED discharge instructions
Prescriptions:
No Action
amantadine HCl 100 MG capsule
100 mg PO BID
albuterol sulfate [Ventolin HFA] 90 MCG/PUFF HFA aerosol inhaler
2 puff inhalation Q6HPRN PRN (Reason: sob)
carbidopa-levodopa 25-100 mg Tablet
1 tab PO TID
verapamil 180 mg Tablet Extended Release
180 mg PO DAILY
cholecalciferol (vitamin D3) [Vitamin D3] 25 mcg (1,000 unit) Tablet
25 mcg PO DAILY
ondansetron HCl 4 mg Tablet
4 mg PO DAILYPRN PRN (Reason: nausea)
melatonin 3 mg Tablet
3 mg PO HS
albuterol sulfate 2.5 mg /3 mL (0.083 %) Solution For Nebulization
2.5 mg INHALATION Q6HPRN PRN (Reason: sob)
albuterol sulfate 2.5 mg /3 mL (0.083 %) Solution For Nebulization
2.5 mg INHALATION QID
calcium carbonate-vitamin D3 [Calcium 600 + D(3)] 600 mg-10 mcg (400 unit) Tablet
1 tab PO DAILY
lisinopril 20 MG tablet
40 mg PO DAILY
lorazepam 1 mg tablet
1 mg PO HS
tramadol 50 mg Tablet
50 mg PO Q6HPRN PRN (Reason: moderate pain) Qty: 8 0RF
magnesium hydroxide [Milk of Magnesia] 400 mg/5 mL Suspension
2,400 mg PO [id number] PRN (Reason: if no bm x2 days)
docusate sodium [Colace] 100 mg Capsule
100 mg PO BID
magnesium oxide 400 mg magnesium Tablet
400 mg PO Q48H
Eliquis 2.5 mg Tablet
2.5 mg PO BID Qty: 60 0RF
pantoprazole 40 mg Tablet,Delayed Release (Dr/Ec)
40 mg PO DAILY Qty: 30 0RF
aspirin 81 mg Tablet,Chewable
81 mg PO DAILY
prednisone 10 mg Tablet
10 mg PO .TAPER
Patient Comments:
09/08/24: take 10mg TID from 09/08/24-09/13/24, 10mg BID from 09/13/24-09/18/24, 10mg QD from 09/18/24-09/23/24
calcium carbonate [Tums] 200 mg calcium (500 mg) Tablet,Chewable
200 mg PO Q4HPRN PRN (Reason: heartburn)
sertraline [Zoloft] 50 mg Tablet
100 mg PO DAILY
guaifenesin 600 mg Tablet Extended Release 12hr
1,200 mg PO [id number] PRN (Reason: congestion)
fluticasone furoate-vilanterol [Breo Ellipta] 200-25 mcg/dose Blister With Device
1 inh INHALATION R DAILY
acetaminophen 325 mg tablet
650 mg PO Q6HPRN PRN (Reason: mild pain /fever >100)
Referrals:
Sherice Weaver MD [Family Provider] -
Interventions
Interventions:
*Risk Screen - Suicide Last Done: 12/05/24 13:48
*General Assessment Last Done: 12/05/24 13:48
*Neglect/Abuse Screening Last Done: 12/05/24 13:48
*Nursing Disposition Last Done: 12/05/24 14:59
ED-Musculoskeletal Assessment Last Done: 12/05/24 13:48
Discharge Date and Time
Discharge Date/Time: 12/05/24 15:00
Print Language: [place]ET[place]ESE
[2024-12-05] MEDS: ROXICODONE 5 MG PO (14:17)
[2024-12-05 14:19] VITALS: BP 168/87
== END 2024-12-05 15:00 | disposition home or self-care (01) ==
LOC: EMR 11:38
PROVIDERS: EMERGENCY PHYSICIAN Emergency Medicine; FAMILY PHYSICIAN Family Medicine
DX: M54.2 Cervicalgia (principal); M79.18 Myalgia, other site; G20.A1 Parkinson's disease without dyskinesia, without mention of fluctuations; I10 Essential (primary) hypertension; J45.909 Unspecified asthma, uncomplicated; Z79.82 Long term (current) use of aspirin; Z88.3 Allergy status to other anti-infective agents; Z88.5 Allergy status to narcotic agent; Z88.0 Allergy status to penicillin
CPT/HCPCS: 99284; 20552; 72040

== ENCOUNTER → 2025-02-22 11:34 | Outpatient (REF) | payer MEDICARE, OTHER, SELFPAY ==
[2025-02-22 13:11] LABS: Urine Character Clear (Clear)
[2025-02-22 14:10] LABS: Urine White Cell 0-2 /HPF (0-5)
== END ==
LOC: OLABWPC 11:34
PROVIDERS: ATTENDING PHYSICIAN Family Medicine
DX: R39.9 Unspecified symptoms and signs involving the genitourinary system (principal)
CPT/HCPCS: 36415; 81003; 81015

== ENCOUNTER → 2025-03-19 11:04 | Outpatient (REF) | payer MEDICARE, OTHER, SELFPAY ==
[2025-03-19 12:32] LABS: Hematocrit 43.8 % (37.0-47.0); Hemoglobin 13.9 g/dL (12.0-16.0); Mean Corp Hgb Conc. 31.7 g/dL (33.0-37.0); Mean Corpuscular Volume 92.8 fL (81.0-99.0); Nucleated Red Blood Cells % 0 %; Platelet Count 223 10^3/uL (130-400); Red Cell Dist. Width 14.9 % (11.5-14.5)
[2025-03-19 12:54] LABS: ALT (SGPT) < 10 U/L (0-35); AST (SGOT) 16 U/L (14-36); Albumin 4.5 g/dl (3.5-5.0); Alkaline Phosphatase 69 U/L (38-126); Blood Urea Nitrogen 20 mg/dl (7-17); Calcium 10.4 mg/dl (8.4-10.2); Carbon Dioxide 30 mmol/L (22-30); Chloride 103 mmol/L (98-107); Glucose 82 mg/dl (70-99); Potassium 4.0 mmol/L (3.5-5.1); Sodium 141 mmol/L (135-145); Total Protein 6.7 g/dl (6.3-8.2); eGFR > 60.00
[2025-03-21 12:33] LABS: Vitamin D, 25-OH*** 40.7 ng/mL (30-80)
== END ==
LOC: REG 11:04
PROVIDERS: ATTENDING PHYSICIAN Family Medicine
DX: N18.31 Chronic kidney disease, stage 3a (principal); Z79.899 Other long term (current) drug therapy; Z01.89 Encounter for other specified special examinations; R79.9 Abnormal finding of blood chemistry, unspecified; R39.9 Unspecified symptoms and signs involving the genitourinary system
CPT/HCPCS: 36415; 80053; 82306; 83970; 85025

== ENCOUNTER → 2025-04-11 10:11 | Outpatient (REF) | payer MEDICARE, OTHER, SELFPAY ==
[2025-04-11 11:40] LABS: Hematocrit 36.8 % (37.0-47.0); Hemoglobin 12.0 g/dL (12.0-16.0); Mean Corp Hgb Conc. 32.6 g/dL (33.0-37.0); Mean Corpuscular Volume 92.5 fL (81.0-99.0); Nucleated Red Blood Cells % 2.4 %; Platelet Count 179 10^3/uL (130-400); Red Cell Dist. Width 13.4 % (11.5-14.5)
[2025-04-11 11:46] LABS: ALT (SGPT) < 10 U/L (0-35); AST (SGOT) 17 U/L (14-36); Albumin 3.7 g/dl (3.5-5.0); Alkaline Phosphatase 70 U/L (38-126); Blood Urea Nitrogen 29 mg/dl (7-17); Calcium 10.0 mg/dl (8.4-10.2); Carbon Dioxide 28 mmol/L (22-30); Chloride 107 mmol/L (98-107); Glucose 83 mg/dl (70-99); Potassium 4.3 mmol/L (3.5-5.1); Sodium 138 mmol/L (135-145); Total Protein 5.9 g/dl (6.3-8.2); eGFR > 60.00
== END ==
LOC: OLABWPC 10:11
PROVIDERS: ATTENDING PHYSICIAN Family Medicine
DX: G20.C Parkinsonism, unspecified (principal); I10 Essential (primary) hypertension; D47.2 Monoclonal gammopathy
CPT/HCPCS: 36415; 80053; 83970; 85025

== ENCOUNTER → 2025-04-20 11:41 | Outpatient (REF) | payer MEDICARE, OTHER, SELFPAY ==
[2025-04-20 12:38] LABS: Hematocrit 38.8 % (37.0-47.0); Hemoglobin 12.4 g/dL (12.0-16.0); Mean Corp Hgb Conc. 32.0 g/dL (33.0-37.0); Mean Corpuscular Volume 93.3 fL (81.0-99.0); Nucleated Red Blood Cells % 0 %; Platelet Count 190 10^3/uL (130-400); Red Cell Dist. Width 13.1 % (11.5-14.5)
[2025-04-20 13:21] LABS: ALT (SGPT) 12 U/L (0-35); AST (SGOT) 17 U/L (14-36); Albumin 3.9 g/dl (3.5-5.0); Alkaline Phosphatase 73 U/L (38-126); Blood Urea Nitrogen 25 mg/dl (7-17); Calcium 9.6 mg/dl (8.4-10.2); Carbon Dioxide 27 mmol/L (22-30); Chloride 104 mmol/L (98-107); Glucose 80 mg/dl (70-99); Potassium 4.0 mmol/L (3.5-5.1); Sodium 138 mmol/L (135-145); Total Protein 6.0 g/dl (6.3-8.2); eGFR > 60.00
== END ==
LOC: OLABWPC 11:41
PROVIDERS: ATTENDING PHYSICIAN Family Medicine
DX: N18.31 Chronic kidney disease, stage 3a (principal); Z79.899 Other long term (current) drug therapy; Z01.89 Encounter for other specified special examinations; R79.9 Abnormal finding of blood chemistry, unspecified
CPT/HCPCS: 36415; 80053; 85025

== ENCOUNTER → 2025-07-20 11:34 | Outpatient (REF) | payer MEDICARE, OTHER, SELFPAY ==
[2025-07-20 12:52] LABS: ALT (SGPT) < 10 U/L (0-35); AST (SGOT) 15 U/L (14-36); Albumin 3.7 g/dl (3.5-5.0); Alkaline Phosphatase 58 U/L (38-126); Blood Urea Nitrogen 19 mg/dl (7-17); Calcium 8.8 mg/dl (8.4-10.2); Carbon Dioxide 29 mmol/L (22-30); Chloride 106 mmol/L (98-107); Glucose 75 mg/dl (70-99); Potassium 4.2 mmol/L (3.5-5.1); Sodium 136 mmol/L (135-145); Total Protein 6.1 g/dl (6.3-8.2); eGFR > 60.00
== END ==
LOC: OLABWIL 11:34
PROVIDERS: ATTENDING PHYSICIAN Family Medicine
DX: I34.0 Nonrheumatic mitral (valve) insufficiency (principal)
CPT/HCPCS: 36415; 80053; 83880

== ENCOUNTER → 2025-07-26 13:09 | Outpatient (REF) | payer MEDICARE, OTHER, SELFPAY ==
[2025-07-26 14:36] LABS: ALT (SGPT) 10 U/L (0-35); AST (SGOT) 17 U/L (14-36); Albumin 4.2 g/dl (3.5-5.0); Alkaline Phosphatase 74 U/L (38-126); Blood Urea Nitrogen 21 mg/dl (7-17); Calcium 9.7 mg/dl (8.4-10.2); Carbon Dioxide 27 mmol/L (22-30); Chloride 106 mmol/L (98-107); Glucose 82 mg/dl (70-99); Potassium 4.4 mmol/L (3.5-5.1); Sodium 138 mmol/L (135-145); Total Protein 6.9 g/dl (6.3-8.2); eGFR > 60.00
== END ==
LOC: OLABWPC 13:09
PROVIDERS: ATTENDING PHYSICIAN Family Medicine
DX: I34.0 Nonrheumatic mitral (valve) insufficiency (principal)
CPT/HCPCS: 36415; 80053; 83880